=== PATIENT | female | born 1950 | race Caucasian/White ===

== ENCOUNTER 2018-12-03 07:55 | Inpatient (IN) ==
[2018-12-03] MEDS ORDERED: LR 1,000 ML ONE ×2 (08:28→09:02)
[2018-12-03] MEDS ORDERED: INVANZ 1 GM/NS 1 GM/50 ML IVPB ONE (08:28)
[2018-12-03] MEDS ORDERED: DIPRIVAN 1% ONE (08:57)
[2018-12-03] MEDS ORDERED: XYLOCAINE-MPF 2% ONE (08:58)
[2018-12-03] MEDS ORDERED: ZEMURON ONE ×2 (08:58→10:22)
[2018-12-03] MEDS ORDERED: SENSORCAINE 0.5%-EPI 1:200,000 ONE (09:02)
[2018-12-03] MEDS ORDERED: PEPCID ONE (09:10)
[2018-12-03] MEDS ORDERED: REGLAN ONE (09:11)
[2018-12-03] MEDS ORDERED: DUONEB (A & A) ONE (09:18)
[2018-12-03] MEDS ORDERED: SODIUM CHLORIDE 0.9% 10 ML ONE (09:24)
[2018-12-03] MEDS ORDERED: MARCAINE 0.25% ONE (09:24)
[2018-12-03] MEDS ORDERED: EXPAREL 1.3% ONE (09:24)
[2018-12-03] MEDS ORDERED: OFIRMEV 1000 MG/ISOTONIC SOLN 1,000 MG/100 ML BOTTLE ONE (10:13)
[2018-12-03] MEDS ORDERED: AMIDATE ONE (10:13)
[2018-12-03] MEDS ORDERED: ZOFRAN ONE (10:13)
[2018-12-03] MEDS ORDERED: DECADRON ONE (10:13)
[2018-12-03 11:18] LABS: URINE SOURCE CATH
[2018-12-03 11:24] LABS: BILIRUBIN URINE NEGATIVE (NEGATIVE); BLOOD URINE NEGATIVE (NEGATIVE); COLOR YELLOW; GLUCOSE URINE NEGATIVE (NEGATIVE); KETONE URINE NEGATIVE (NEGATIVE); LEUKOCYTES URINE NEGATIVE (NEGATIVE); NITRITE URINE NEGATIVE (NEGATIVE); PH URINE 8.5; PROTEIN URINE TRACE mg/dL (NEGATIVE); SP GRAVITY URINE 1.017; TURBIDITY URINE CLEAR (CLEAR); UROBILINOGEN URINE NORMAL (NORMAL)
[2018-12-03 11:28] LABS: UR EPITHELIAL CELLS <10 /HPF (<10); URINE BACTERIA NEGATIVE /HPF; URINE RBC <10 /HPF (<10); URINE WBC <10 /HPF (<10)
[2018-12-03] MEDS ORDERED: DILAUDID ONE (14:38)
[2018-12-03] MEDS ORDERED: NEOSTIGMINE ONE (14:45)
[2018-12-03] MEDS ORDERED: ROBINUL ONE ×2 (14:45→15:12)
[2018-12-03] MEDS ORDERED: VENTOLIN HFA ONE (14:54)
[2018-12-03] MEDS ORDERED: NEO-SYNEPHRINE ONE (15:46)
[2018-12-03] MEDS ORDERED: ALBUMIN 25% ONE (15:50)
[2018-12-03] MEDS ORDERED: NS 1,000 ML ONE (16:02)
--- NOTE | 2018-12-03 16:15 | Diag Imaging Result Doc PS360 ---
EXAM: CHEST-1 VIEW INDICATION: sob,hypoxemia TECHNIQUE: One view COMPARISON: 05/19/2018 FINDINGS: There is a small calcified granuloma in the right upper lobe. There is prominent central vasculature suggesting pulmonary venous congestion and mild perihilar interstitial edema. There is no discrete pleural fluid collection or pneumothorax. Median sternotomy wires are stable. Cardiac silhouette is unremarkable. IMPRESSION: Suggestion of pulmonary venous congestion and mild interstitial edema. Electronically signed by Myles Bundy 12/03/2018 4:13 PM
[2018-12-03 16:42] LABS: HEMATOCRIT 37.9 % (37.0-47.0); HEMOGLOBIN 11.2 g/dL (12.0-16.0); MCH 29.8 PG (27-31); MCHC 29.6 g/dL (33-37); MCV 100.8 FL (81-99); MPV 11.7 FL (7.4-10.4); RBC 3.76 XMIL (4.2-5.4); RDW 13.8 % (11.5-14.5); WBC 18.52 X1000 (4.8-10.8)
[2018-12-03] MEDS ORDERED: VENTOLIN HFA INH PRN (16:42)
[2018-12-03] MEDS: NS 1,000 ML IV SCH (17:00)
[2018-12-03] MEDS: MORPHINE IV PRN ×2 (17:12→19:55)
[2018-12-03] MEDS: LIORESAL PO SCH (17:13)
[2018-12-03] MEDS: OFIRMEV 1000 MG/ISOTONIC SOLN 1,000 MG/100 ML BOTTLE IV SCH ×2 (17:13→22:33)
--- NOTE | 2018-12-03 20:09 | OPERATIVE NOTE ---
PROCEDURE DATE: 12/03/2018 PREOP DIAGNOSIS: Low rectal cancer. POSTOP: Low rectal cancer. PROCEDURE PERFORMED: Robot-assisted laparoscopic abdominoperineal resection. ROSS CARRIER DRIVER: Dr. Justice was present for the entirety of the case. He facilitated exposure, identification of anatomy made difficult by the patient's morbid obesity. ANESTHESIA: General with TAP. INDICATIONS: Female who had what was initially felt to be a 15 cm rectal polyp and invasive carcinoma at the base of the polyp was confirmed but no evidence of metastatic disease. OPERATIVE FINDINGS: The patient had a very large redundant sigmoid colon with large epiploic appendages and mesorectal fat. There was tattoo noted below the peritoneal reflection extending all the way down to within 2 cm of the anal verge. No evidence of metastatic disease liver. SPECIMENS: 1. Proximal rectum and sigmoid colon. 2. Distal rectum and anus. OPERATIVE NOTE: Risks, benefits and alternatives discussed with the patient and she consented to the procedure. Seen preoperatively. Surgical site was confirmed. She has taken operating room placed supine position, general anesthesia induced. TAP block was performed. Bustillos catheter was placed and she was then placed in lithotomy position. Her perineum and abdomen was prepped with chlorhexidine, Betadine on the perineum. After time-out we made a supraumbilical incision, placed robotic camera trocar and insufflated the abdomen. There was no evidence of metastatic disease. There was some adhesions to the lower midline felt to be related to previous tubal ligation. Then placed a 12 mm robotic trocar between the ASIS and the umbilicus. Two additional robotic trocars left lateral and assistant property manager port in the right upper quadrant. After docking the robot the patient was in steep Trendelenburg position. Exposure was difficult given the large amount of perivisceral fat and we had a hard time getting the small bowel out of the pelvis but we were able to do this with a mini laparotomy pad and the assistant property manager trocar. We identified the pedicle, which again was very bulky and fatty. We incised this after incising the mesorectal plane. We divided the pedicle highly as we felt safe and continued our dissection distally. We were well away from the ureters bilaterally and we could visualize them. We continued our dissection distally. Mobilizing the redundant sigmoid and rectum out of the pelvis was difficult as it was quite heavy and the robot had a hard time retracting this but we were able to do this what we felt safely although difficultly. Getting this down incised the peritoneal reflection. We identified some tattoo ink here. Anteriorly seemed to be very scarred to the vagina but we were able to continue our posterior dissection down the level that we felt was far enough but our lateral and anterior dissection was difficult. Dr. Justice attempted to pass a rectal dilator to help guide this. Also placed a vaginal dilator as well but this did not help delineate the planes adequately. As such, we aborted the robotic portion, made a lower midline incision made Korey wound protector. We continued our dissection again even in an open fashion. This was very difficult. The plane seemed to be obliterated. There was a lot of anterior tattoo that further obliterated this plane and we even divided the colon proximally to help clear the pelvis of extra viscera and this did help. At this point we felt we were probably far enough based off of our sigmoid then we used a TA 45 mm stapler to remove the sigmoid and rectum so visualization and exposure would be better. I opened the specimen on the back table and it became clear that what appeared to be a biopsy site was at our distal margin and we needed more margin, but again this polyp was felt to be completely removed and we were confident that this was in fact a biopsy site. As such, we continued our dissection distally. Continued to identify tattoo down to the level that we felt was too low to allow confident distal margin and too low to given the size and redundancy of her perirectal pelvic tissue created in the anastomosis. As such with the goal to not sacrifice oncologic outcomes we elected to pursue an abdominoperineal resection. The quality of the rectal wall is very poor at this location. We at this point placed her in high lithotomy position and created an incision around the anus starting posteriorly and laterally. We carried this up to completing the dissection with the intraabdominal portion and we completed our dissection anteriorly. The vagina again this plane is very obliterated but were able do this safely without creating a vaginal defect. There was tattoo noted along the posterior vaginal wall. We passed the specimen off orienting it. There was a very poor prep and a lot of formed stool within the sigmoid rectum. There was some spillage into the pelvis during the distal transections but we were able to evacuate this completely. At this point, I closed the peritoneal defect after confirming hemostasis combination 0 Vicryl and 3-0 Vicryl at the skin in interrupted fashion. There was good tension-free closure here. At this point we changed our gloves, went back above, copiously irrigated the pelvis, closed the peritoneum over the pelvis, placed a Slick drain in this location and then further mobilized the descending colon to provide adequate reach for the colostomy. Left lower quadrant colostomy incision was made 2 fingerbreadths lateral and inferior to the umbilicus but further enough away from our incision through the rectus. We carried this down to rectus splitting fascia with the ostomy site that would allow 3 fingerbreadths given large size of her colon. We did have to resect a large redundant epiploic appendages to allow admittance but we were able to do this and it came out nicely without tension. We then again irrigated the abdomen. All our lap counts were okay. I closed the robotic trocars with 0 Vicryl and the fascia was then closed incorporating the peritoneum with a running #1 looped PDS suture. Irrigated the superficial wound, closed all incisions with constance and then matured the colostomy with interrupted 0 Vicryl sutures in [place] fashion. Ostomy appliance as well as dressing was applied. She tolerated it well. She was transferred to recovery. I spoke with the family and will watch in the step-down unit. ESTIMATED BLOOD LOSS: 400 mL. cc: Aramis Serrano MD [facility]
[2018-12-03] MEDS: PERIDEX MT SCH ×2 (21:09→21:13)
[2018-12-03] MEDS: ZOFRAN IV PRN (22:33)
[2018-12-04] MEDS: MORPHINE IV PRN ×6 (00:19→21:21)
[2018-12-04] MEDS: ULTRAM PO PRN (01:54)
[2018-12-04] MEDS: ZOFRAN IV PRN ×4 (04:26→23:05)
[2018-12-04] MEDS: OFIRMEV 1000 MG/ISOTONIC SOLN 1,000 MG/100 ML BOTTLE IV SCH ×2 (04:27→10:22)
[2018-12-04 06:28] LABS: BASO# 0.01 X1000 (0.0-0.2); BASO% 0.1 % (0.0-0.8); HEMOGLOBIN 10.7 g/dL (12.0-16.0); IMM GRAN# 0.04 X1000 (0.0-0.04); IMM GRAN% 0.3 % (0.0-0.5); LYMPH# 1.65 X1000 (1.2-3.4); LYMPH% 10.5 % (20.5-51.1); MCH 28.9 PG (27-31); MCHC 30.6 g/dL (33-37); MCV 94.6 FL (81-99); MONO# 1.09 X1000 (0.11-0.59); MONO% 6.9 % (1.7-9.3); MPV 11.9 FL (7.4-10.4); NEUT# 12.97 X1000 (1.4-6.5); NEUT% 82.2 % (42.2-75.2); PLT 300 X1000 (130-400); RDW 13.9 % (11.5-14.5); WBC 15.76 X1000 (4.8-10.8)
[2018-12-04 06:54] LABS: AGAP 13; BUN 11 mg/dL (8-22); CALCIUM 8.3 mg/dL (8.8-10.2); CHLORIDE 107 mmol/L (98-107); COSMO 291; CREATININE 0.9 mg/dL (0.5-0.9); ESTIMATED GFR > 60; GLUCOSE 177 mg/dL (70-104); POTASSIUM 4.9 mmol/L (3.5-5.1); SODIUM 144 mmol/L (136-145); TCO2 24 mmol/L (25-35)
[2018-12-04] MEDS: DUONEB (A & A) INH PRN ×3 (08:10→21:25)
[2018-12-04] MEDS: ASPIRIN EC PO SCH (08:41)
[2018-12-04] MEDS: SINGULAIR PO SCH (08:41)
[2018-12-04] MEDS: LIORESAL PO SCH ×3 (08:41→17:24)
[2018-12-04] MEDS: PRAVACHOL PO SCH (08:41)
[2018-12-04] MEDS: MAG-OX PO SCH (08:41)
[2018-12-04] MEDS: PERIDEX MT SCH ×2 (08:43→21:21)
[2018-12-04] MEDS: LOVENOX SUBQ SCH (08:43)
[2018-12-04] MEDS: NS 1,000 ML IV SCH (12:13)
--- NOTE | 2018-12-04 15:16 | GENERAL SURGERY PROGRESS NOTE ---
DATE: 12/04/2018 SUBJECTIVE: She is postoperative day one after abdominal perineal resection. This was for cancer. Her primary complaint today is pain. She denies vomiting or nausea. OBJECTIVE: She is afebrile. Heart rate 115, blood pressure 120/69. Her drain has put out very little and it appears to be serosanguineous. Her stoma is swollen and somewhat darkish in appearance. LABORATORY DATA: White count is 15,000, hemoglobin 10.7. ASSESSMENT AND PLAN: She apparently takes [place] regularly and is asking for [place], in addition to her morphine. I will put her back on [place] 3 times a day as needed. Will recheck her labs tomorrow. cc: MD Aramis Kelsey MD
[2018-12-04] MEDS: NORCO-10 PO PRN (19:07)
[2018-12-05] MEDS: MORPHINE IV PRN ×5 (01:21→18:19)
[2018-12-05] MEDS: NORCO-10 PO PRN ×3 (03:13→20:28)
[2018-12-05] MEDS: DUONEB (A & A) INH PRN ×4 (03:22→21:10)
[2018-12-05 06:51] LABS: BASO# 0.01 X1000 (0.0-0.2); BASO% 0.1 % (0.0-0.8); HEMATOCRIT 28.7 % (37.0-47.0); HEMOGLOBIN 8.7 g/dL (12.0-16.0); IMM GRAN# 0.06 X1000 (0.0-0.04); IMM GRAN% 0.3 % (0.0-0.5); LYMPH# 1.66 X1000 (1.2-3.4); LYMPH% 9.5 % (20.5-51.1); MCH 28.8 PG (27-31); MCHC 30.3 g/dL (33-37); MONO# 1.53 X1000 (0.11-0.59); MONO% 8.8 % (1.7-9.3); MPV 12.2 FL (7.4-10.4); NEUT# 14.14 X1000 (1.4-6.5); NEUT% 81.3 % (42.2-75.2); PLT 249 X1000 (130-400); RBC 3.02 XMIL (4.2-5.4); RDW 14.4 % (11.5-14.5)
[2018-12-05 07:07] LABS: AGAP 12; BUN 12 mg/dL (8-22); CALCIUM 8.8 mg/dL (8.8-10.2); CHLORIDE 107 mmol/L (98-107); COSMO 286; CREATININE 0.7 mg/dL (0.5-0.9); ESTIMATED GFR > 60; GLUCOSE 159 mg/dL (70-104); POTASSIUM 4.3 mmol/L (3.5-5.1); SODIUM 142 mmol/L (136-145); TCO2 23 mmol/L (25-35)
[2018-12-05] MEDS: PERIDEX MT SCH ×2 (08:01→20:29)
[2018-12-05] MEDS: SINGULAIR PO SCH (08:02)
[2018-12-05] MEDS: PRAVACHOL PO SCH (08:02)
[2018-12-05] MEDS: MAG-OX PO SCH (08:02)
[2018-12-05] MEDS: ASPIRIN EC PO SCH (08:02)
[2018-12-05] MEDS: LIORESAL PO SCH ×3 (08:02→17:37)
[2018-12-05] MEDS: NS 1,000 ML IV SCH (08:20)
[2018-12-05] MEDS: ZOFRAN IV PRN ×2 (09:58→18:19)
[2018-12-05] MEDS: LOVENOX SUBQ SCH (10:24)
--- NOTE | 2018-12-05 10:47 | GENERAL SURGERY PROGRESS NOTE ---
DATE: 12/05/2018 SUBJECTIVE: She is postop day 2 after abdominal peroneal resection. OBJECTIVE: Temperature is 99.1 degrees, heart rate is 130, blood pressure 126/53. She has bilateral breath sounds and does not appear to be tachypneic. She says she has coughed up some phlegm today. Intake recorded as 700 in and 1080 out. Her drain appears to be draining serous fluid mostly. Her stoma was dark on the surface but probably this may simply be superficial ischemia. [place]: [place] [address] hemoglobin 8.7, hematocrit 28.7. Her chemistry is okay. ASSESSMENT: She appears to be stable postop. She has taken some liquid without nausea and there has been no output in her stoma yet. We did put her on [place] because she takes it regularly at home. We will watch her I's and I's today and see if she needs an increased IV rate. Recheck her labs tomorrow. I will get a chest x-ray in the morning as well. cc: MD Aramis Kelsey MD
[2018-12-05 17:12] LABS: HEMATOCRIT 28.2 % (37.0-47.0); HEMOGLOBIN 8.5 g/dL (12.0-16.0)
[2018-12-05] MEDS ORDERED: LASIX IV ONE (17:58)
[2018-12-05] MEDS ORDERED: TAPAZOLE PO ONE (18:08)
[2018-12-05] MEDS: TAPAZOLE PO SCH (18:28)
--- NOTE | 2018-12-05 19:02 | CONSULTATION ---
DATE OF CONSULTATION: 12/05/2018 REASON FOR CONSULTATION: Medical management, tachycardia, abdominal pain. HISTORY OF PRESENT ILLNESS: This is a 68-year-old female with a past medical history of peripheral vascular disease, hypertension, hyperlipidemia, and COPD. She has also been taking medication for hyperthyroidism, history of CABG due to coronary artery disease in December 2015 with 4-vessel bypass, dyslipidemia, CHF, GERD and apparently now low rectal cancer. As per the patient, she has been followed by Dr. Serrano, Dr. Rice from Gastroenterology Department, and Dr. Leigh Young from Oncology Department. She had a robot-assisted laparoscopic abdominoperitoneal resection by Dr. Ori Serrano. As per the surgeon, she has a rectal polyp and invasive carcinoma at the base of the polyp, but no evidence of metastatic disease. It looks like she tolerated well the procedure, and she was hospitalized in the PVC unit. She has been complaining of abdominal pain even though she has been taking her [place] which she has been on at home as well and morphine. She has been placed on a little bit of IV fluids and some of her home medications. This patient has been taking also methimazole, and she takes 10 mg Thursday, Thursday, and Thursday. The rest of the days she takes only 5 mg. Also, she is on torsemide due to her CHF. On my physical exam, she seems to have some rales and crackles. Her cough is really weak because of her abdominal pain. She also has some abdominal distention, a drain, and an ostomy that is with a bag. Extremities with no edema and she is completely alert and oriented x3, but she does have generalized weakness. For now, I will add the methimazole, and I will give her a dose of Lasix. We will check the TSH level in the morning, electrolytes, and also a chest x-ray, which has been already ordered by Surgery Department. I agree with the rest of treatment. She denies nausea, vomiting, diarrhea, chest pain, but she is a little bit short of breath. She is tachycardic also. Tachycardia could be multifactorial due to pain and missing the methimazole treatment. We will monitor that. REVIEW OF SYSTEMS: All the 14-points of review of systems were reviewed. All of them negative except as per HPI. PAST MEDICAL HISTORY: As per HPI. History of coronary artery disease status post CABG in December 2015 with 4-vessel bypass, COPD, dyslipidemia, CHF. She has been treated for hyperthyroidism, obesity, and rectal cancer. PAST SURGICAL HISTORY: She had a bypass surgery done. 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 SOCIAL HISTORY: She used to be a smoker. No alcohol. No drugs. ALLERGIES: No known allergies. PHYSICAL EXAMINATION: Vital Signs: Temperature 98.7 degrees, pulse 135, respiratory rate 20, blood pressure 133/53, oxygen saturation 96 on 3L nasal cannula. HEENT: Head normocephalic. No trauma. PERRLA. Neck: Supple. No JVD. No masses. Central trachea. Chest: Decreased breath sounds at the bases with bilateral crackles and some rales. Prolonged expiratory phase. Abdomen: Soft. Generalized tenderness to palpation mostly around the operative area. She has a colostomy and a drain with some serosanguineous discharge. Extremities: No edema, no clubbing, no cyanosis. Neurological: The patient is alert. She is oriented x3. No focal deficits. LABORATORY: WBC 17.4, hemoglobin 8.5, hematocrit 28.2, and platelets 249,000. Sodium 142, potassium 4.3, chloride 107, bicarbonate 23, BUN 12, creatinine 0.7, glucose 159, calcium 8.8. ASSESSMENT AND PLAN: 1. Low rectal cancer, status post robot-assisted laparoscopic abdominal peritoneal resection due to a rectal polyp and invasive carcinoma at the base of the polyp that was confirmed but no evidence of metastatic disease. Surgery department following this patient closely. We will monitor. 2. History of coronary artery disease and congestive heart failure. I will put this patient on Lasix. I will check again her lungs in the morning. She takes torsemide at home twice a day. We will put this patient back on her medications in the near future. 3. Hypertension. At this moment, her blood pressure has been borderline low. We will monitor this patient closely. She is on IV fluids. 4. Type 2 diabetes. Continue with the same management. Her blood sugar seems to be controlled. I will put her on a sliding scale insulin. 5. Gastroesophageal reflux disease. I will add PPI to her medications. 6. The patient has been treated for hyperthyroidism with methimazole, which I will continue. She takes 5 mg Neli, , Thursday and Thursday and 10 mg Thursday, Thursday, and Thursday. 7. Peripheral neuropathy, aware. 8. Dyslipidemia. Continue with pravastatin. 9. Further recommendations pending hospital course. cc: MD Aramis Guaman MD MTDD
[2018-12-05] MEDS: HUMULIN R SUBQ SCH (23:00)
[2018-12-06] MEDS: MORPHINE IV PRN ×4 (01:51→19:21)
[2018-12-06] MEDS: DUONEB (A & A) INH PRN ×6 (03:33→23:25)
[2018-12-06] MEDS: NS 1,000 ML IV SCH ×2 (03:37→03:48)
[2018-12-06] MEDS: PROTONIX PO SCH ×2 (05:53→06:14)
--- NOTE | 2018-12-06 06:09 | Diag Imaging Result Doc PS360 ---
EXAM: CHEST-PORTABLE HISTORY: post op TECHNIQUE: Single view COMPARISON: 12/03/2018 FINDINGS: The lungs are well expanded. The heart is not enlarged. There are sternal wires. The vessels are mildly distended. There are no infiltrates. No effusion identified. IMPRESSION: Mild pulmonary edema Electronically signed by Wilberto Richardson 12/06/2018 6:06 AM
[2018-12-06] MEDS: HUMULIN R SUBQ SCH ×4 (06:13→20:08)
[2018-12-06 06:24] LABS: BASO# 0.01 X1000 (0.0-0.2); BASO% 0.1 % (0.0-0.8); HEMATOCRIT 27.6 % (37.0-47.0); HEMOGLOBIN 8.4 g/dL (12.0-16.0); IMM GRAN# 0.06 X1000 (0.0-0.04); IMM GRAN% 0.4 % (0.0-0.5); LYMPH# 1.72 X1000 (1.2-3.4); LYMPH% 10.6 % (20.5-51.1); MCH 28.9 PG (27-31); MCHC 30.4 g/dL (33-37); MCV 94.8 FL (81-99); MONO# 1.24 X1000 (0.11-0.59); MONO% 7.7 % (1.7-9.3); MPV 12.3 FL (7.4-10.4); NEUT# 13.17 X1000 (1.4-6.5); NEUT% 81.2 % (42.2-75.2); PLT 262 X1000 (130-400); RBC 2.91 XMIL (4.2-5.4); RDW 14.4 % (11.5-14.5)
[2018-12-06 06:42] LABS: AGAP 10; BUN 9 mg/dL (8-22); CHLORIDE 105 mmol/L (98-107); COSMO 281; CREATININE 0.7 mg/dL (0.5-0.9); ESTIMATED GFR > 60; GLUCOSE 124 mg/dL (70-104); POTASSIUM 3.2 mmol/L (3.5-5.1); SODIUM 141 mmol/L (136-145); TCO2 26 mmol/L (25-35)
[2018-12-06 07:32] LABS: MAGNESIUM 2.5 mg/dL (1.5-2.7); PHOSPHORUS 1.9 mg/dL (2.7-4.5)
[2018-12-06] MEDS: TAPAZOLE PO SCH (08:55)
[2018-12-06] MEDS: NORCO-10 PO PRN ×3 (08:55→21:09)
[2018-12-06] MEDS: LOVENOX SUBQ SCH (08:56)
[2018-12-06] MEDS: PERIDEX MT SCH ×2 (08:56→20:28)
[2018-12-06] MEDS: PRAVACHOL PO SCH (08:56)
[2018-12-06] MEDS: ASPIRIN EC PO SCH (08:56)
[2018-12-06] MEDS: LASIX IV SCH (08:56)
[2018-12-06] MEDS: LIORESAL PO SCH ×3 (08:56→20:28)
[2018-12-06] MEDS: SINGULAIR PO SCH (08:56)
[2018-12-06] MEDS: MAG-OX PO SCH (08:56)
[2018-12-06] MEDS: ZOFRAN IV PRN ×2 (09:07→21:58)
[2018-12-06] MEDS ORDERED: POTASSIUM PHOSPHATE 21 MMOL in NS 250 ML IV ONE (09:30)
--- NOTE | 2018-12-06 10:18 | PROGRESS NOTE ---
DATE: 12/06/2018 SUBJECTIVE: This patient is still complaining of abdominal pain. She recently had a surgery done. I wanted this patient to be on incentive spirometer to avoid pneumonia. Physical Therapy already has been consulted. We will need to continue breathing treatment. I have restarted some of her medications before, especially methimazole. Also, I have placed this patient on Lasix once a day. She takes torsemide twice a day at home. It looks like she has a history of congestive heart failure, but her last echocardiogram was done in 2017 so I will repeat it. She has some electrolyte abnormality especially low potassium and phosphorus, which I will replace. Her leukocyte count is still elevated. This is probably reactive, and she is not having a fever. The highest temperature is been documented 99.4. I will keep an eye on this for now. OBJECTIVE: Vital Signs: Temperature 99.4 degrees, pulse 117, respiratory rate 22, blood pressure 135/61, oxygen saturation 96 on 3 L of nasal cannula. HEENT: Head normocephalic. No trauma. PERRLA. Neck: Supple. No JVD. No masses. Central trachea. Chest: Decreased breath sounds mostly at the bases with some crackles bilaterally, prolonged expiratory phase. Abdomen: Soft. Generalized tenderness to palpation mostly around the perioperative area. Decreased bowel sounds but present. She has a colostomy and also a drain with some serosanguineous discharge. Extremities: No edema. No clubbing. No cyanosis. Neurological: The patient is alert. She is oriented x3. No focal deficits but generalized weakness. LABORATORY: WBC 16.2, hemoglobin 8.4, hematocrit 27.6, and platelets 262,000. Sodium 141, potassium 3.2, chloride 105, bicarbonate 26, BUN 9, creatinine 0.7. Glucose 124, calcium 8, phosphorus 1.9, magnesium 2.5, and TSH 0.4. ASSESSMENT AND PLAN: 1. Low rectal cancer, status post robot assisted laparoscopic abdominal peritoneal resection due to a rectal polyp and invasive carcinoma at the base of the polyp that was confirmed, but no evidence of metastatic disease. Surgery Department following this patient closely. We will continue to monitor. 2. History of coronary artery disease and CHF. I will continue with Lasix just once a day. She takes torsemide twice a day at home. Probably, we will need to put this patient back on her home medications in the future. Kidney function looks okay. I will continue with same management. She is also getting some fluids since she is not eating too much. 3. Hypertension. Stable. Continue with same management for now. 4. Type 2 diabetes. Continue pattern of blood sugar and sliding scale insulin. 5. Gastroesophageal reflux disease. Continue with proton pump inhibitors. 6. This patient has been treated for hyperthyroidism with methimazole, which I will continue. She takes 5 mg Thursday, and Thursday and Thursday, and 10 mg Thursday, Thursday, and Thursday. I will continue with that. 7. Peripheral neuropathy aware. 8. Dyslipidemia. Continue with pravastatin. 9. This patient is tachycardic probably/likely is related to her pain, but also I have restarted her thyroid medication. Let us see how she does. 10. X-ray today showed mild pulmonary edema but no infiltrates. cc: MD Aramis Guaman MD
--- NOTE | 2018-12-06 13:04 | EKG Report ---
Test Performed on : 12/06/2018 12:13:53 PM Test Reason : tachycardia Blood Pressure : / mmHG Vent. Rate : 119 BPM Atrial Rate : 119 BPM P-R Int : 000 ms QRS Dur : 082 ms QT Int : 426 ms P-R-T Axes : 000 030 105 degrees QTc Int : 599 ms Critical Test Result: Long QTc Normal sinus rhythm. ST & T wave abnormality, consider anterolateral ischemia Abnormal ECG When compared with ECG of 19-MAY-2018 17:45, T wave inversion no longer evident in Inferior leads Confirmed by Mitchell Almanzar MD ([id number]) on 12/07/2018 7:18:09 AM
--- NOTE | 2018-12-06 13:43 | ECHO REPORT ---
ORDER DATE: 12/05/2018 INDICATION: CHF. FINDINGS: This is an extremely difficult and poor quality study. Endocardial border resolution is extremely poor. 1. There is likely normal LV systolic function with an estimated EF greater than 55%. Segmental wall motion analysis cannot be performed in this patient. Could consider Optison contrast injection. 2. Normal RV systolic function. 3. Poor views of the mitral valve but no evidence of mitral valve prolapse. 4. Poor views of the aortic valve but no clear evidence of significant stenosis or insufficiency. 5. The right heart overall was poorly visualized but there do not appear to be any significant abnormalities. 6. No pericardial effusion identified. cc: MD Mukesh Ramirez MD R. Tyler Harney, MD
--- NOTE | 2018-12-06 20:03 | GENERAL SURGERY PROGRESS NOTE ---
DATE: 12/06/2018 SUBJECTIVE: Overall hemodynamically stable. She has become a little tachycardic overnight, but no fevers. Blood pressure has been normal. Urine output has been good. She is having some incisional discomfort, but her abdomen is soft. Her ostomy has some duskiness on the most exterior portion. There is no stool or air in the bag. Trace lower extremity edema. She is on 3 to 4 L nasal cannula. She has coarse rhonchi noted, a very weak cough. She is not moving out of bed very much. ASSESSMENT AND PLAN: The hospitalist has seen the patient and resumed her methimazole, which I agree with. They have started gentle diuresis with half of her home dose. I agree with this, also. Her ejection fraction was maintained on her echocardiogram. Her chest x-ray shows possible mild pulmonary edema. We will work on her pain control. I have encouraged her to be out of bed and stressed the importance of pulmonary toileting which, unfortunately, she is not participating well with at this juncture. We will work on her electrolytes as well. Keep her on clear liquids until she is tolerating more of a diet. I have ordered her nebulizer treatments as scheduled, and reviewed the remainder of her medications. Dr. Abreu has given her some potassium phosphate. We will monitor this, especially with her diuresis going forward. cc: Aramis Serrano MD
[2018-12-07] MEDS: NS 1,000 ML IV SCH ×2 (01:07→20:43)
[2018-12-07] MEDS: MORPHINE IV PRN ×4 (01:15→19:25)
[2018-12-07] MEDS: ZOFRAN IV PRN ×3 (03:36→15:08)
[2018-12-07] MEDS: NORCO-10 PO PRN ×3 (05:38→22:07)
[2018-12-07 05:47] LABS: BASO# 0.01 X1000 (0.0-0.2); BASO% 0.1 % (0.0-0.8); EOS# 0.02 X1000 (0.0-0.7); EOS% 0.2 % (0.0-10.0); HEMATOCRIT 26.2 % (37.0-47.0); IMM GRAN# 0.05 X1000 (0.0-0.04); IMM GRAN% 0.4 % (0.0-0.5); LYMPH# 1.58 X1000 (1.2-3.4); MCH 29.1 PG (27-31); MCHC 30.5 g/dL (33-37); MCV 95.3 FL (81-99); MONO# 1.23 X1000 (0.11-0.59); MONO% 9.3 % (1.7-9.3); MPV 11.7 FL (7.4-10.4); NEUT# 10.27 X1000 (1.4-6.5); PLT 280 X1000 (130-400); RBC 2.75 XMIL (4.2-5.4); RDW 14.3 % (11.5-14.5); WBC 13.16 X1000 (4.8-10.8)
[2018-12-07 05:59] LABS: AGAP 13; ALBUMIN 2.8 g/dL (3.5-5.0); ALKALINE PHOSPHATASE 102 U/L (32-104); BUN 7 mg/dL (8-22); CALCIUM 8.2 mg/dL (8.8-10.2); CHLORIDE 104 mmol/L (98-107); COSMO 284; CREATININE 0.7 mg/dL (0.5-0.9); ESTIMATED GFR > 60; GLUCOSE 154 mg/dL (70-104); GOT 17 U/L (10-30); GPT 13 U/L (10-36); MAGNESIUM 2.6 mg/dL (1.5-2.7); PHOSPHORUS 2.5 mg/dL (2.7-4.5); POTASSIUM 3.4 mmol/L (3.5-5.1); SODIUM 142 mmol/L (136-145); TCO2 25 mmol/L (25-35); TOTAL BILIRUBIN 0.56 mg/dL (0.20-1.00); TOTAL PROTEIN 5.5 g/dL (6.3-8.3)
[2018-12-07] MEDS: HUMULIN R SUBQ SCH ×4 (06:18→20:44)
[2018-12-07] MEDS: PROTONIX PO SCH (06:29)
--- NOTE | 2018-12-07 07:33 | Diag Imaging Result Doc PS360 ---
EXAM: CHEST-PORTABLE INDICATION: dyspnea TECHNIQUE: One view COMPARISON: 12/06/2018 FINDINGS: There are linear densities at the right lower lung zone most compatible with subsegmental atelectasis. It is approximately stable. Mild pulmonary venous congestion is stable. No new consolidation is identified. Cardiac silhouette is stable. IMPRESSION: Stable chest. Electronically signed by Myles Bundy 12/07/2018 7:31 AM
[2018-12-07] MEDS: SINGULAIR PO SCH (08:58)
[2018-12-07] MEDS: MAG-OX PO SCH (08:58)
[2018-12-07] MEDS: PRAVACHOL PO SCH (08:58)
[2018-12-07] MEDS: LOVENOX SUBQ SCH (08:58)
[2018-12-07] MEDS: ASPIRIN EC PO SCH (08:58)
[2018-12-07] MEDS: LIORESAL PO SCH ×3 (08:58→16:55)
[2018-12-07] MEDS: LASIX IV SCH (08:58)
[2018-12-07] MEDS: PERIDEX MT SCH ×2 (08:58→20:44)
[2018-12-07] MEDS: DUONEB (A & A) INH PRN ×3 (11:23→19:35)
[2018-12-07] MEDS: TAPAZOLE PO SCH (17:34)
[2018-12-08] MEDS: ZOFRAN IV PRN ×2 (02:16→14:20)
[2018-12-08] MEDS: MORPHINE IV PRN ×5 (02:16→20:54)
[2018-12-08] MEDS: PROTONIX PO SCH (06:36)
[2018-12-08] MEDS: HUMULIN R SUBQ SCH ×4 (06:37→21:00)
[2018-12-08] MEDS: DUONEB (A & A) INH PRN ×3 (07:41→15:53)
[2018-12-08] MEDS: MAG-OX PO SCH (09:05)
[2018-12-08] MEDS: PRAVACHOL PO SCH (09:05)
[2018-12-08] MEDS: ASPIRIN EC PO SCH (09:05)
[2018-12-08] MEDS: SINGULAIR PO SCH (09:05)
[2018-12-08] MEDS: LIORESAL PO SCH ×3 (09:05→16:18)
[2018-12-08] MEDS: LOVENOX SUBQ SCH (09:05)
[2018-12-08] MEDS: LASIX IV SCH (09:06)
[2018-12-08] MEDS: TAPAZOLE PO SCH (09:25)
[2018-12-08] MEDS: NORCO-10 PO PRN (09:25)
[2018-12-08] MEDS: PERIDEX MT SCH ×2 (09:25→20:54)
--- NOTE | 2018-12-08 09:26 | GENERAL SURGERY PROGRESS NOTE ---
DATE: 12/07/2018 SUBJECTIVE: The patient is overall doing okay. She is denying having any vomiting. Tachycardia is persistent, but improving. She is in the chair, remains on nasal cannula 3 L, but is participating more vigorously with pulmonary toileting. Her abdomen is soft. Her ostomy is dusky distally, but there does appear to be pink mucosa more proximally. On the , her white count was down to 13, hematocrit is 26, creatinine 0.7. Glucose has been okay. ASSESSMENT AND PLAN: This is a 68-year-old female status post abdominoperineal resection. She has chronic lung disease, chronic heart disease. She is being gently diuresed. She has a Bustillos catheter in place for this. She is tolerating some clear liquids. No significant ostomy output yet. She is on prophylactic Lasix, her daily aspirin as well as her pulmonary regimen and PPI as well. We will continue to monitor closely. Encourage out of bed and ambulation. cc: MD Flex Sorensen MD
--- NOTE | 2018-12-08 09:41 | GENERAL SURGERY PROGRESS NOTE ---
DATE: 12/08/2018 SUBJECTIVE: She is much more alert, breathing more comfortably this morning. She is lying in bed. She is tolerating some clear liquids. OBJECTIVE: Her abdomen is soft, mildly distended, but her ostomy does show some pink mucosa proximally after the distal-most aspect is sloughing. LABORATORY DATA: Glucose 127, otherwise no new labs. I reviewed her ins and outs as they continue gently diurese her. ASSESSMENT AND PLAN: A 68-year-old female status post abdominoperineal resection. We will continue physical therapy, aggressive pulmonary toileting and management of her chronic pulmonary and heart disease. Otherwise, she is progressing appropriately postoperatively. cc: MD Flex Sorensen MD
[2018-12-08] MEDS: NS 1,000 ML IV SCH (16:18)
[2018-12-08] MEDS ORDERED: ROCEPHIN 1 GM in NS 50 ML IV ONE (16:56)
--- NOTE | 2018-12-08 17:24 | Diag Imaging Result Doc PS360 ---
CHEST-PORTABLE - 12/08/2018 INDICATION: fever COMPARISON: 12/07/2018 FINDINGS: Stable sternotomy changes. Stable cardiomegaly and pulmonary vascular congestion. Lung volumes are lower. There is increasing infiltrate or atelectasis in the right lower lobe. IMPRESSION: Lower lung volumes with increasing infiltrate or atelectasis in the right lower lobe. Electronically signed by Alfredo Elizalde 12/08/2018 5:21 PM
--- NOTE | 2018-12-08 17:28 | PROGRESS NOTE ---
DATE: 12/08/2018 SUBJECTIVE: This is a 68-year-old female who was admitted with abdominal pain. Recently had surgery done. The patient was admitted to the hospital. He is a patient of Dr. Irma Smith. She had a robot-assisted laparoscopic abdominal peritoneal resection. She has done well postop. She has a colostomy. She had a consultation with the hospitalist on 12/05. Past medical history includes peripheral vascular disease, hypertension, hyperlipidemia, COPD. She has been taking medications for hyperthyroidism . History of CABG, bypass due to coronary artery disease in December 2015, 4 vessel bypass, dyslipidemia, congestive heart failure, gastroesophageal reflux disease, and apparently low rectal cancer. Has been followed by Dr. Serrano and Dr. Rice and Dr. Leigh Young. She had robotic-assisted laparoscopic abdominal peritoneal resection per Dr. Ori Serrano. 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 She tolerated the procedure well. She is in the PVC unit. OBJECTIVE: Vital signs: She actually had some fever today, 101. Pulse is 115, respirations 20, blood pressure 124/66. General: She has not felt bad. She has had a little bit of a dry cough, but otherwise unremarkable. HEENT: Pupils are equal and round. Lungs: Clear in all lung ordonez. Cardiovascular: Regular rhythm and rate without murmur or S3. Abdomen: Soft. The ostomy looks good. Abdominal incisions look good. Still has the Zack-Welch drain in. Skin: Warm and dry. Urine output was 2400 mL. LABORATORY: Blood sugar 90, 127, and 89. ASSESSMENT AND PLAN: 1. Low rectal cancer, status post robotic-assisted laparoscopic abdominal peritoneal resection due to rectal polyp and invasive carcinoma at the base of the polyp was confirmed. No evidence of metastatic disease. 2. History of coronary artery disease and history of congestive heart failure. Appears to be well compensated. Volume status looks good. She takes torsemide twice a day, so we probably need to get her back on that in the near future. 3. Hypertension. Blood pressure is well controlled. 4. Diabetes mellitus type 2. 5. Gastroesophageal reflux disease. On proton pump inhibitors. 6. Had been treated for hyperthyroidism with methimazole and we will continue that. She takes 5 mg Tuesdays, , Saturdays, and Sundays, and 10 mg on Mondays, Wednesdays, and Fridays. 7. Peripheral neuropathy. 8. Dyslipidemia. She is on pravastatin. 9. They have been following her tachycardia. [place] it was probably due to her pain. Appears to be in sinus rhythm. REVIEW OF ORDERS: She gets Tylenol 650 mg p.o. q.4 hours, I just ordered that p.r.n. fever or pain, aspirin 81 mg a day, Lioresal which is baclofen 10 mg p.o. t.i.d., Lasix 40 mg IV daily, hydrocodone 10 mg t.i.d. p.r.n., milk of magnesia 400 mg a day, Tapazole which is methimazole 5 mg p.o. Thursday, Thursday, , and Thursday, and 10 mg on the other days. Gets morphine for pain, Protonix 40 mg p.o. daily, ceftriaxone 1 g, I am going to give her now, and vancomycin. We will check urine culture and chest x-ray and send off her blood cultures for fever. I do not see any definite sign of infection. cc: Flex Littlejohn MD
[2018-12-08] MEDS: TYLENOL PO PRN (17:31)
[2018-12-08] MEDS ORDERED: VANCOMYCIN 1 GM/NS 1 GM/250 ML IVPB IV ONE (18:00)
[2018-12-09] MEDS: NORCO-10 PO PRN ×3 (00:12→16:37)
[2018-12-09] MEDS: DUONEB (A & A) INH PRN ×2 (03:38→22:53)
[2018-12-09] MEDS: MORPHINE IV PRN ×5 (05:12→22:05)
[2018-12-09] MEDS: PROTONIX PO SCH (06:19)
[2018-12-09] MEDS: HUMULIN R SUBQ SCH ×4 (07:23→20:36)
[2018-12-09 07:55] LABS: BASO# 0.03 X1000 (0.0-0.2); BASO% 0.3 % (0.0-0.8); EOS# 0.01 X1000 (0.0-0.7); EOS% 0.1 % (0.0-10.0); HEMATOCRIT 23.8 % (37.0-47.0); HEMOGLOBIN 7.4 g/dL (12.0-16.0); LYMPH# 1.47 X1000 (1.2-3.4); LYMPH% 12.4 % (20.5-51.1); MCH 29.5 PG (27-31); MCHC 31.1 g/dL (33-37); MCV 94.8 FL (81-99); MONO# 1.14 X1000 (0.11-0.59); MONO% 9.6 % (1.7-9.3); MPV 11.3 FL (7.4-10.4); NEUT# 9.24 X1000 (1.4-6.5); NEUT% 77.6 % (42.2-75.2); PLT 296 X1000 (130-400); RBC 2.51 XMIL (4.2-5.4); RDW 13.9 % (11.5-14.5); WBC 11.89 X1000 (4.8-10.8)
[2018-12-09 08:01] LABS: AGAP 13; BUN 6 mg/dL (8-22); CALCIUM 8.3 mg/dL (8.8-10.2); CHLORIDE 100 mmol/L (98-107); COSMO 276; CREATININE 0.6 mg/dL (0.5-0.9); ESTIMATED GFR > 60; GLUCOSE 114 mg/dL (70-104); MAGNESIUM 2.7 mg/dL (1.5-2.7); POTASSIUM 2.9 mmol/L (3.5-5.1); SODIUM 139 mmol/L (136-145); TCO2 26 mmol/L (25-35)
[2018-12-09] MEDS: LIORESAL PO SCH ×3 (08:17→17:49)
[2018-12-09] MEDS: ASPIRIN EC PO SCH (08:17)
[2018-12-09] MEDS: MAG-OX PO SCH (08:17)
[2018-12-09] MEDS: SINGULAIR PO SCH (08:17)
[2018-12-09] MEDS: PERIDEX MT SCH ×2 (08:18→20:41)
[2018-12-09] MEDS: LOVENOX SUBQ SCH (08:18)
[2018-12-09] MEDS: PRAVACHOL PO SCH (08:18)
[2018-12-09] MEDS: LASIX IV SCH (08:18)
[2018-12-09] MEDS: ZOFRAN IV PRN (09:35)
[2018-12-09] MEDS ORDERED: KLOR-CON PO ONE (10:11)
[2018-12-09] MEDS: NS 1,000 ML IV SCH (13:29)
--- NOTE | 2018-12-09 16:52 | PROGRESS NOTE ---
DATE: 12/09/2018 SUBJECTIVE: Ms. Suarez is feeling better. She is still hurting, but it help to sit up in a chair. She feels like her bowels are moving good. Her abdomen looks good. Colostomy bag, Zack-Welch drain still in place. OBJECTIVE: Vital signs: Temp 98.8 degrees, pulse 106, respirations 18, blood pressure 143/54. HEENT: Pupils are equal and round. Lungs: Clear in all lung ordonez. Cardiovascular: Regular rhythm and rate without murmur or S3. ASSESSMENT AND PLAN: 1. Low rectal cancer status post robotic-assisted laparoscopic abdominoperitoneal resection due to rectal polyp and invasive carcinoma at the base of the polyp, confirmed. No evidence of metastatic disease. 2. History of coronary artery disease, history of congestive heart failure. Appears to be well compensated. She was taking torsemide, so I think we can probably start that back. 3. Hypertension. Blood pressure well controlled. 4. Diabetes mellitus type 2. 5. Gastroesophageal reflux. On proton pump inhibitors. 6. Treated for hyperthyroidism with methimazole and we are continuing that. 7. Peripheral neuropathy. 8. Dyslipidemia. On pravastatin. She is getting 40 mg right now of Lasix IV daily, so I think we will continue that and started her p.o. when she is able. In looking over her orders, I do not see any change. LABS: Review of her lab today, white count 11,890, hematocrit is 23, hemoglobin 7.4, platelet count 296,000. Sodium 139, potassium 2.9, chloride 100, BUN 6, creatinine 0.6. We will check a CBC again. Discussed with the surgery. If hemoglobin drops below 7 probably need to get a transfusion. cc: Flex Littlejohn MD
[2018-12-09] MEDS: TAPAZOLE PO SCH (17:49)
[2018-12-10] MEDS: NORCO-10 PO PRN ×3 (00:06→16:24)
--- NOTE | 2018-12-10 00:14 | GENERAL SURGERY PROGRESS NOTE ---
DATE: 12/09/2018 SUBJECTIVE: She is much more alert this morning, less trouble breathing. She says she is hungry. Some liquid from her ostomy, but no air. No significant loose stool. OBJECTIVE: Abdomen: Soft. Incisions are intact. I have reviewed her vital signs. Heart rate is downtrending. No fevers. Blood pressures have been in the 120s mostly. LABORATORY DATA: I reviewed her labs. Potassium is low at 2.9. ASSESSMENT AND PLAN: A 68-year-old female, status post abdominoperineal resection. She seems to be turning the corner clinically. Pulmonary status is much improved. Mobility is improving. No return of bowel function yet. We will continue clear liquids for now. I have stressed the importance of going slow. She is being diuresed. I have ordered her some oral repletion of her potassium. May need IV if she does not tolerate it, but will follow her closely. cc: MD Flex Sorensen MD
[2018-12-10] MEDS: MORPHINE IV PRN ×5 (04:44→22:04)
[2018-12-10] MEDS: HUMULIN R SUBQ SCH ×4 (06:09→20:47)
[2018-12-10] MEDS: PROTONIX PO SCH (06:10)
[2018-12-10 06:35] LABS: BASO# 0.02 X1000 (0.0-0.2); BASO% 0.2 % (0.0-0.8); EOS# 0.02 X1000 (0.0-0.7); EOS% 0.2 % (0.0-10.0); HEMATOCRIT 24.7 % (37.0-47.0); HEMOGLOBIN 7.5 g/dL (12.0-16.0); IMM GRAN# 0.11 X1000 (0.0-0.04); LYMPH# 1.56 X1000 (1.2-3.4); LYMPH% 14.6 % (20.5-51.1); MCH 28.8 PG (27-31); MCHC 30.4 g/dL (33-37); MONO# 1.03 X1000 (0.11-0.59); MONO% 9.6 % (1.7-9.3); MPV 11.1 FL (7.4-10.4); NEUT# 7.97 X1000 (1.4-6.5); NEUT% 74.4 % (42.2-75.2); PLT 334 X1000 (130-400); RDW 13.9 % (11.5-14.5); WBC 10.71 X1000 (4.8-10.8)
[2018-12-10 07:10] LABS: AGAP 8; BUN 6 mg/dL (8-22); CALCIUM 8.1 mg/dL (8.8-10.2); CHLORIDE 100 mmol/L (98-107); COSMO 270; CREATININE 0.5 mg/dL (0.5-0.9); ESTIMATED GFR > 60; GLUCOSE 106 mg/dL (70-104); POTASSIUM 3.7 mmol/L (3.5-5.1); SODIUM 136 mmol/L (136-145); TCO2 28 mmol/L (25-35)
[2018-12-10] MEDS: DUONEB (A & A) INH PRN ×3 (07:18→15:06)
[2018-12-10] MEDS: PRAVACHOL PO SCH (08:10)
[2018-12-10] MEDS: PERIDEX MT SCH ×2 (08:10→20:48)
[2018-12-10] MEDS: MAG-OX PO SCH (08:11)
[2018-12-10] MEDS: LASIX IV SCH (08:11)
[2018-12-10] MEDS: TAPAZOLE PO SCH (08:11)
[2018-12-10] MEDS: LIORESAL PO SCH ×3 (08:11→16:21)
[2018-12-10] MEDS: ASPIRIN EC PO SCH (08:11)
[2018-12-10] MEDS: SINGULAIR PO SCH (08:11)
[2018-12-10] MEDS: LOVENOX SUBQ SCH (08:11)
[2018-12-10] MEDS: NS 1,000 ML IV SCH (08:17)
--- NOTE | 2018-12-10 13:01 | GENERAL SURGERY PROGRESS NOTE ---
DATE: 12/10/2018 SUBJECTIVE: She seems more alert. Not having ostomy output yet. Cardiovascular. Her heart rate is now normal sinus rhythm. She is weaning on her O2 and is breathing more comfortably. Abdomen is soft. Ostomy distal mucosa is sloughing but approximately pink. There is liquid in the bag but no air, no stool. Perineal wound is intact. There is some serosanguineous drainage. White count down to 10, hematocrit 24, creatinine 0.5. ASSESSMENT AND PLAN: A 68-year-old female, status post abdominoperineal resection. Overall, clinically improving. It is slow, complicated by her chronic pulmonary issues and generalized deconditioning, obesity, awaiting bowel function. Will advance her diet when she tolerates this. Otherwise, her incisions are healing well with no signs of infection. cc: MD Kenney Sorensen MD
--- NOTE | 2018-12-10 14:29 | PROGRESS NOTE ---
DATE: 12/10/2018 SUBJECTIVE: Patient resting in bed. Not in any obvious distress. OBJECTIVE: Vital signs: Temperature 97.7 degrees, pulse 115, respiratory rate 16, blood pressure 153/65, oxygen saturation 100%. HEENT: He is atraumatic, normocephalic. Cardiovascular: S1, S2. Respiratory system: Has evidence of good air entry bilaterally. Abdomen: Soft. Nontender. No masses felt. Extremities: No evidence of edema. Central nervous system: No obvious focal deficits noted. LABORATORY DATA: WBCs 10.71, hematocrit 24.7, with a platelet count of 334,000. Sodium is 136, potassium 3.7, chloride is 100, bicarb 28, BUN is 6, creatinine 0.5. ASSESSMENT AND PLAN: 1. Low rectal cancer status post robotic-assisted laparoscopic abdominal peritoneal resection due to a rectal polyp as well as neoplastic change at the base of the polyp. The patient is being followed by the surgical team. The patient does have an ostomy. 2. Coronary artery disease. Asymptomatic. 3. Congestive heart failure, stable. Monitor intakes and outputs, as well as daily weights. Diuretics as needed. 4. Hypertension. Continue current regimen. 5. Diabetes mellitus. Continue blood sugar monitoring as well as sliding scale insulin. 6. Gastroesophageal reflux disease. Continue proton pump inhibitor. 7. Hyperthyroidism. Continue methimazole. 8. Dyslipidemia. Continue pravastatin. 9. Deep vein thrombosis prophylaxis. Lovenox. 10. Gastrointestinal prophylaxis. Proton pump inhibitor. cc: Kenney Ascencio MD MTDD
[2018-12-10] MEDS: ZOFRAN IV PRN (22:12)
[2018-12-11] MEDS: NORCO-10 PO PRN ×4 (00:34→21:05)
[2018-12-11] MEDS: MORPHINE IV PRN ×6 (01:57→23:30)
[2018-12-11] MEDS: NS 1,000 ML IV SCH (04:17)
[2018-12-11] MEDS: PROTONIX PO SCH ×2 (05:57→06:25)
[2018-12-11] MEDS: ZOFRAN IV PRN ×3 (06:00→23:30)
[2018-12-11] MEDS: HUMULIN R SUBQ SCH ×4 (06:24→21:07)
[2018-12-11 06:33] LABS: BASO# 0.01 X1000 (0.0-0.2); BASO% 0.1 % (0.0-0.8); EOS# 0.02 X1000 (0.0-0.7); EOS% 0.2 % (0.0-10.0); HEMATOCRIT 25.3 % (37.0-47.0); HEMOGLOBIN 7.6 g/dL (12.0-16.0); IMM GRAN# 0.08 X1000 (0.0-0.04); IMM GRAN% 0.8 % (0.0-0.5); LYMPH# 1.54 X1000 (1.2-3.4); LYMPH% 15.3 % (20.5-51.1); MCH 28.4 PG (27-31); MCV 94.4 FL (81-99); MONO# 0.97 X1000 (0.11-0.59); MONO% 9.7 % (1.7-9.3); NEUT# 7.42 X1000 (1.4-6.5); NEUT% 73.9 % (42.2-75.2); PLT 390 X1000 (130-400); RBC 2.68 XMIL (4.2-5.4); RDW 13.8 % (11.5-14.5); WBC 10.04 X1000 (4.8-10.8)
[2018-12-11 06:37] LABS: AGAP 8; ALB/GLOB RATIO 0.8; ALBUMIN 2.5 g/dL (3.5-5.0); ALKALINE PHOSPHATASE 115 U/L (32-104); BUN 5 mg/dL (8-22); CALCIUM 8.3 mg/dL (8.8-10.2); CHLORIDE 102 mmol/L (98-107); COSMO 274; CREATININE 0.6 mg/dL (0.5-0.9); ESTIMATED GFR > 60; GLUCOSE 120 mg/dL (70-104); GOT 16 U/L (10-30); GPT 15 U/L (10-36); POTASSIUM 3.8 mmol/L (3.5-5.1); SODIUM 138 mmol/L (136-145); TCO2 28 mmol/L (25-35); TOTAL PROTEIN 5.5 g/dL (6.3-8.3)
[2018-12-11] MEDS: DUONEB (A & A) INH PRN ×4 (07:36→23:15)
[2018-12-11] MEDS: ASPIRIN EC PO SCH (08:17)
[2018-12-11] MEDS: PRAVACHOL PO SCH (08:17)
[2018-12-11] MEDS: LIORESAL PO SCH ×4 (08:17→21:16)
[2018-12-11] MEDS: MAG-OX PO SCH (08:18)
[2018-12-11] MEDS: LOVENOX SUBQ SCH (08:18)
[2018-12-11] MEDS: LASIX IV SCH (08:18)
[2018-12-11] MEDS: SINGULAIR PO SCH (08:18)
[2018-12-11] MEDS: PERIDEX MT SCH ×2 (08:18→21:05)
--- NOTE | 2018-12-11 13:49 | GENERAL SURGERY PROGRESS NOTE ---
DATE: 12/11/2018 SUBJECTIVE: The patient says she feels okay. She is tolerating a liquid diet. She is hungry for food. OBJECTIVE: Vital Signs: She is afebrile. Vital signs are stable. General: She is awake, alert, oriented x3. In no acute distress. GI: Soft, appropriately tender. Incision is clean, dry, and intact. Stoma is pink. There is some gas in the bag. LABORATORY: White blood cell count 10, hematocrit 25. BMP reviewed and unremarkable. ASSESSMENT AND PLAN: A 68-year-old female status post abdominal peroneal resection. She is beginning to have better bowel function. We will increase her diet to mechanical soft.. She has been undergoing stoma teaching. We anticipate discharge to [facility] early next week. cc: MD Jose Kirk MD
--- NOTE | 2018-12-11 18:00 | PROGRESS NOTE ---
DATE: 12/11/2018 SUBJECTIVE: Patient is resting, in no distress. No new complaints. OBJECTIVE: Temperature 98, pulse 95, respiratory rate 20, BP 136/55.General: Patient is awake, currently in no respiratory distress. Pleasant to talk with. HEENT: Normocephalic. Neck: Supple. Cardiovascular: Regular rate. Chest: Clear. ASSESSMENT: 1. Low rectal cancer, status post robotic-assisted laparoscopic abdominoperitoneal resection. 2. Known coronary artery disease, currently asymptomatic. 3. Congestive heart failure, stable. 4. Hypertension. 5. Diabetes. 6. Hypothyroidism. PLAN: We will continue patient in the hospital. Continue symptomatic treatment. She currently is on full liquids. Hopefully, this can be advanced. cc: Jose Marcum MD
[2018-12-11] MEDS: TAPAZOLE PO SCH (18:08)
[2018-12-12] MEDS: NS 1,000 ML IV SCH ×2 (00:02→18:16)
[2018-12-12] MEDS: NORCO-10 PO PRN ×3 (03:06→18:11)
[2018-12-12] MEDS: MORPHINE IV PRN ×5 (04:50→23:13)
--- NOTE | 2018-12-12 05:12 | EKG Report ---
Test Performed on : 12/11/2018 8:52:51 PM Test Reason : chest tightness and tachycardia Blood Pressure : / mmHG Vent. Rate : 135 BPM Atrial Rate : 135 BPM P-R Int : 104 ms QRS Dur : 082 ms QT Int : 374 ms P-R-T Axes : -01 027 062 degrees QTc Int : 561 ms Critical Test Result: Long QTc Sinus tachycardia. with short MS Nonspecific ST and T wave abnormality Abnormal ECG When compared with ECG of 06-DEC-2018 12:13, No significant change was found Confirmed by Jenelle MIRZA, Mitchell Jc ([id number]) on 12/12/2018 7:27:12 AM
[2018-12-12] MEDS: HUMULIN R SUBQ SCH ×4 (06:01→20:42)
[2018-12-12] MEDS: PROTONIX PO SCH (06:13)
[2018-12-12] MEDS: PERIDEX MT SCH ×2 (09:57→20:21)
[2018-12-12] MEDS: SINGULAIR PO SCH (09:57)
[2018-12-12] MEDS: LOVENOX SUBQ SCH (09:57)
[2018-12-12] MEDS: LIORESAL PO SCH ×3 (09:57→20:21)
[2018-12-12] MEDS: ASPIRIN EC PO SCH (09:57)
[2018-12-12] MEDS: ZOFRAN IV PRN ×3 (09:58→22:42)
[2018-12-12] MEDS: LASIX IV SCH (09:58)
[2018-12-12] MEDS: PRAVACHOL PO SCH (09:58)
[2018-12-12] MEDS: MAG-OX PO SCH (09:58)
[2018-12-12] MEDS: DUONEB (A & A) INH PRN ×3 (11:30→22:40)
--- NOTE | 2018-12-12 15:22 | PROGRESS NOTE ---
DATE: 12/12/2018 SUBJECTIVE: Ms. Suarez feels much better. She is getting a little stronger. Her tummy still hurts a little bit when she coughs, and her hop is that she can go to rehab. Her abdomen looks good. Colostomy bag looks good and clean. OBJECTIVE: Vital Signs: Temperature 97.6 degrees, pulse 112, respirations 17, blood pressure 138/54. HEENT: Pupils are equal and round. Lungs: Clear in all lung ordonez. Cardiovascular: Regular rhythm and rate without murmur or S3. LABORATORY DATA: Urine output is 3000 mL. Blood sugars 68, 146, and 89. ASSESSMENT/PLAN: 1. Low rectal cancer status post robotic-assisted laparoscopic abdominoperitoneal resection. 2. Known coronary artery disease. No sign of active ischemia. 3. Congestive heart failure, well compensated. Volume status looks good. 4. Hypertension. 5. Diabetes mellitus type 2. Sugars under good control. 6. Hypothyroidism. She is making good progress. She wants to go to rehab, so we will get transition social worker to help us look for rehab opportunities. Reviewed her orders and reviewed her labs. Hematocrit is 25, hemoglobin 7.6 and stable. White count 10,040. Platelet count 390,000. cc: Flex Littlejohn MD
[2018-12-12] MEDS: TAPAZOLE PO SCH (18:11)
--- NOTE | 2018-12-12 18:22 | GENERAL SURGERY PROGRESS NOTE ---
DATE: 12/12/2018 SUBJECTIVE: The patient feels better today. No severe abdominal pain, nausea, or vomiting. She is eating some food. She reports some output in her ostomy. OBJECTIVE: Vitals: She is afebrile. Vital signs are stable. General: She is awake, alert, oriented x3. No acute distress. GI: Soft, nondistended. Minimally tender. Incision is clean, dry, and intact. AUNDREA drain is dark, all bloody fluid, 10 mL recorded out yesterday. The stoma in the left lower quadrant is pink with only mild duskiness. ASSESSMENT AND PLAN: A 68-year-old female status post abdominoperineal resection. She is slowly improving. She has not had great ostomy output yet. We are looking to arrange for rehab this week. cc: MD Flex Kirk MD
[2018-12-13] MEDS: DUONEB (A & A) INH PRN ×6 (00:25→23:22)
[2018-12-13] MEDS: MORPHINE IV PRN ×5 (03:13→21:53)
[2018-12-13] MEDS: ZOFRAN IV PRN ×4 (03:45→21:54)
[2018-12-13] MEDS: PROTONIX PO SCH ×2 (05:55→07:17)
[2018-12-13] MEDS: NORCO-10 PO PRN ×2 (05:55→19:23)
[2018-12-13 06:47] LABS: BASO# 0.03 X1000 (0.0-0.2); BASO% 0.3 % (0.0-0.8); HEMATOCRIT 25.6 % (37.0-47.0); LYMPH# 1.51 X1000 (1.2-3.4); LYMPH% 12.7 % (20.5-51.1); MCH 29.4 PG (27-31); MCHC 31.3 g/dL (33-37); MCV 94.1 FL (81-99); MONO# 1.23 X1000 (0.11-0.59); MONO% 10.3 % (1.7-9.3); NEUT# 9.14 X1000 (1.4-6.5); NEUT% 76.7 % (42.2-75.2); PLT 434 X1000 (130-400); RBC 2.72 XMIL (4.2-5.4); RDW 13.9 % (11.5-14.5); WBC 11.91 X1000 (4.8-10.8)
[2018-12-13] MEDS: HUMULIN R SUBQ SCH ×4 (06:54→21:54)
[2018-12-13] MEDS: LASIX IV SCH (08:13)
[2018-12-13] MEDS: MAG-OX PO SCH (08:13)
[2018-12-13] MEDS: TAPAZOLE PO SCH (08:13)
[2018-12-13] MEDS: LOVENOX SUBQ SCH (08:13)
[2018-12-13] MEDS: ASPIRIN EC PO SCH (08:13)
[2018-12-13] MEDS: LIORESAL PO SCH ×3 (08:14→17:16)
[2018-12-13] MEDS: PRAVACHOL PO SCH (08:14)
[2018-12-13] MEDS: PERIDEX MT SCH ×2 (08:15→21:53)
[2018-12-13] MEDS: SINGULAIR PO SCH (09:58)
[2018-12-13] MEDS: NS 1,000 ML IV SCH (12:45)
--- NOTE | 2018-12-13 16:57 | PROGRESS NOTE ---
DATE: 12/13/2018 SUBJECTIVE: Ms. Suarez says she has just not felt good today, nauseated. She did get a little bit of crackers and juice down, but just feel felt nauseated. OBJECTIVE: Vital Signs: She remains afebrile, temperature 98.2 degrees pulse 106, respirations 16, blood pressure 151/57. HEENT: Pupils are equal and round. Lungs: Clear in all lung ordonez. Cardiovascular: Regular rhythm and rate without murmur or S3. Abdomen: Soft. Skin: Warm and dry. Urine output is 3 L. ASSESSMENT AND PLAN: 1. Status post abdominoperineal resection, slowly improving. She has not had great ostomy output yet and nauseated today. She is hoping to go to rehab; does not want to go today. 2. Low rectal cancer status post robotic-assisted laparoscopic abdominal peritoneal resection. 3. Known coronary artery disease. No sign of active cardiac ischemia at this time. 4. Congestive heart failure. Volume status looks good. Appears to be good compensation. 5. Hypertension. Blood pressure well controlled. 6. Diabetes mellitus type 2. Sugars under control. 7. History of hypothyroidism. Continue current medications. REVIEW OF ORDERS: The patient is on aspirin 81 mg a day, Lioresal 10 mg p.o. t.i.d., Lasix 40 mg IV daily, Lovenox 40 mg subcutaneous q.24 hours, Ativan 0.5 mg p.o. t.i.d. p.r.n., Protonix 40 mg daily, Pravachol 20 mg daily, and tramadol 50 mg p.o. q.6 hours. LABORATORY DATA: From today, white count is 11,910, hematocrit is 25, hemoglobin is 8, platelet count 434,000. Blood sugars 117, 124, 115. So hopefully can go to rehab tomorrow. cc: Flex Littlejohn MD
[2018-12-14] MEDS: DUONEB (A & A) INH PRN ×6 (04:04→23:12)
[2018-12-14] MEDS: MORPHINE IV PRN ×3 (04:26→13:33)
[2018-12-14] MEDS: ZOFRAN IV PRN ×4 (04:26→22:31)
[2018-12-14] MEDS: NORCO-10 PO PRN ×3 (06:05→23:50)
[2018-12-14] MEDS: NS 1,000 ML IV SCH (06:05)
[2018-12-14] MEDS: PROTONIX PO SCH (06:05)
[2018-12-14] MEDS: HUMULIN R SUBQ SCH ×4 (06:06→20:21)
[2018-12-14 08:18] LABS: HEMATOCRIT 25.8 % (37.0-47.0); HEMOGLOBIN 7.7 g/dL (12.0-16.0); MCHC 29.8 g/dL (33-37); MCV 93.8 FL (81-99); RBC 2.75 XMIL (4.2-5.4); RDW 13.9 % (11.5-14.5); WBC 11.36 X1000 (4.8-10.8)
[2018-12-14 08:32] LABS: AGAP 12; BUN 7 mg/dL (8-22); CALCIUM 8.2 mg/dL (8.8-10.2); CHLORIDE 101 mmol/L (98-107); COSMO 277; CREATININE 0.5 mg/dL (0.5-0.9); ESTIMATED GFR > 60; GLUCOSE 127 mg/dL (70-104); POTASSIUM 3.7 mmol/L (3.5-5.1); SODIUM 139 mmol/L (136-145); TCO2 26 mmol/L (25-35)
[2018-12-14] MEDS: ASPIRIN EC PO SCH (09:17)
[2018-12-14] MEDS: FLAGYL 500 MG/NS 500 MG/100 ML IVPB IV SCH ×3 (09:17→20:37)
[2018-12-14] MEDS: LOVENOX SUBQ SCH (09:18)
[2018-12-14] MEDS: PERIDEX MT SCH ×2 (09:18→20:38)
[2018-12-14] MEDS: LASIX IV SCH ×2 (09:18→20:38)
[2018-12-14] MEDS: MAG-OX PO SCH (09:18)
[2018-12-14] MEDS: LIORESAL PO SCH ×3 (09:18→16:34)
[2018-12-14] MEDS: PRAVACHOL PO SCH (09:19)
[2018-12-14] MEDS: SINGULAIR PO SCH (09:19)
--- NOTE | 2018-12-14 10:29 | GENERAL SURGERY PROGRESS NOTE ---
DATE: 12/13/2018 SUBJECTIVE: The patient was seen in the late afternoon on 12/13/2018. She complains of some nausea and abdominal discomfort. She is not able to eat much. She has thrown up a couple of times. OBJECTIVE: She is afebrile. Pulse in the low 100s, blood pressure 151/57, O2 saturation 98%.General: She is awake, alert, oriented x3. She appears ill, but in no acute distress. CV: Tachycardic and regular. Respiratory: Bilateral breath sounds. No work of breathing. Gastrointestinal: Soft, nondistended. Incision is clean, dry, and intact. Ostomy is pink, but no output in the bag. Perineum has some edema and some cloudy drainage through the incision. LABORATORY: White blood cell count 11.9, hemoglobin 8, hematocrit 25. ASSESSMENT AND PLAN: A 68-year-old female status post abdominal peroneal resection. She has had some low-grade fevers. Her white count is up a little bit. She is not feeling well and had some emesis. We will check a CT of the abdomen and pelvis to check for any abscesses that may be developing or postoperative ileus. Again, she is not having very good ostomy output. She is also not having very good oral intake. I think we need to restart some antibiotics given the appearance of her perineal wound and low-grade fever. cc: MD Leigh Ann Kirk MD
[2018-12-14] MEDS: ROCEPHIN 1 GM in NS 50 ML IV SCH (11:18)
--- NOTE | 2018-12-14 11:29 | Diag Imaging Result Doc PS360 ---
CT ABD/PELVIS W/PO AND IV CON - 12/14/2018 INDICATION: post op APR, nausea, pain, perineal drainage COMPARISON: 11/22/2018 FINDINGS: There are trace bilateral pleural effusions. There is some rounded opacity in the right major fissure most likely some loculated fluid. There is advanced COPD in the lung bases. There is probably some mild pulmonary edema as well. Heart size is top normal. Small hiatal hernia. There are a couple stable tiny liver cysts, otherwise abdominal organs are all normal. There is significant flank edema bilaterally. There is a surgical drain in the posterior dependent pelvis. This extends all way to the right lower quadrant. There are couple of small presacral fluid collections. The largest measures 2.3 x 4.9 cm in AP and lateral dimensions. The others measure less than a centimeter. There has been rectal resection with left lower quadrant colostomy. No free air. No bowel obstruction. Bustillos catheter in the urinary bladder. Uterus or uterine remnant is normal. There are moderate degenerative changes of the spine. No acute or suspicious bony lesion. IMPRESSION: 1. There are a couple small presacral fluid collections that are nonspecific. 2. Pleural effusions. Significant flank edema. 3. Probable mild pulmonary edema in the lung bases. This exam was performed using automated exposure control, adjustment of mA or kV according to patient size, and/or use of iterative reconstruction technique Electronically signed by Alfredo Elizalde 12/14/2018 11:27 AM
--- NOTE | 2018-12-14 16:39 | GENERAL SURGERY PROGRESS NOTE ---
DATE: 12/14/2018 SUBJECTIVE: The patient continues to have nausea but no vomiting today. She is drinking a little bit of clear liquids. OBJECTIVE: Vitals: She is afebrile. Vital signs are stable. General: She is awake, alert, oriented x3. No acute distress. GI: Soft, mildly tender but no rebound or guarding. Her incisions are clean, dry, intact. Her perineal wound, however, is intact with seropurulent drainage on the gauze. LABORATORY: White blood cell count 11, hemoglobin 7.7. Electrolytes reviewed, unremarkable. IMAGING: CT of the abdomen and pelvis revealed a small presacral fluid collection, pleural effusions, flank edema, and mild pulmonary edema in the lung bases. ASSESSMENT AND PLAN: A 68-year-old female status post abdominoperineal resection. There is probably a mild infection of the perineal wound and presacral space. I have restarted Rocephin and Flagyl. The incision still seems to be mostly intact in the perineum. There is some seepage through it. I will allow this to drain on its own without formal incision and drainage at this time. Her oral intake remains poor. Hopefully, as the infection clears, she will be able to eat better. Dr. Serrano will be back in 2 days, and we are hopefully going to be able to discharge her to rehab by the end of the week. cc: MD Leigh Ann Kirk MD
[2018-12-14] MEDS: TAPAZOLE PO SCH (18:18)
[2018-12-14] MEDS: ULTRAM PO PRN (18:24)
[2018-12-14] MEDS: TYLENOL PO PRN (18:24)
--- NOTE | 2018-12-14 20:39 | PROGRESS NOTE ---
DATE: 12/14/2018 SUBJECTIVE: The patient states that she feels nauseous and complains of abdominal pain. OBJECTIVE: Vital signs: Temperature 98.6 degrees, blood pressure 148/54, heart rate 114, respirations 20, O2 saturations 100% on 2 L nasal cannula. Intake 2 L, output 2.7 L. General: This is a morbidly obese female lying in bed in no acute distress. Heart: S1, S2 normal. Tachycardic. Lungs: Equal air entry bilaterally. No wheezing. No rales. Abdomen: Positive bowel sounds. The colostomy bag is in place. The patient's abdomen is distended. Extremities: No edema, no cyanosis. Neuro: The patient is alert and oriented x4. LABS: White blood cell count 11, hemoglobin 7.7, hematocrit 25, platelets 48,000. Sodium 139, potassium 3.7, chloride 101, CO2 26, BUN 7, creatinine 0.5 glucose 127. ASSESSMENT AND PLAN: 1. Status post robot-assisted laparoscopic abdominoperineal resection. The patient may have a mild infection. Antibiotics have been restarted by the general surgeon. We will continue to monitor the patient closely. She is nauseous today as she is receiving Zofran p.r.n. 2. Bilateral pleural effusions with mild pulmonary edema. The patient is currently on IV Lasix once a day. We will increase this every 12 hours and monitor the patient's response. 3. Chronic hypoxemic respiratory failure. Continue with supplemental oxygen. 4. Anemia. The patient's hemoglobin and hematocrit are low, but stable. Will continue to monitor closely. 5. Hyperthyroidism. Continue on Tapazole. 6. Deep vein thrombosis prophylaxis. Continue on Lovenox. cc: Leigh Ann Quijano MD
[2018-12-14] MEDS: ATIVAN PO PRN (23:50)
[2018-12-15] MEDS: ULTRAM PO PRN (01:34)
[2018-12-15] MEDS: FLAGYL 500 MG/NS 500 MG/100 ML IVPB IV SCH ×4 (02:51→20:30)
[2018-12-15] MEDS: DUONEB (A & A) INH PRN ×5 (03:21→22:53)
[2018-12-15] MEDS: PROTONIX PO SCH ×2 (05:51→06:01)
[2018-12-15] MEDS: ZOFRAN IV PRN ×3 (05:55→20:29)
[2018-12-15] MEDS: HUMULIN R SUBQ SCH ×4 (06:18→22:45)
[2018-12-15 06:43] LABS: RETIC% 2.83 % (0.8-2.1); RETIC-HE 24.7 PG (28.2-36.6)
[2018-12-15 07:15] LABS: IRON SATURATION 9 %; TIBC 175 ug/dL; TOTAL IRON 16 ug/dL (49-151); UNBOUND IRON 159 ug/dL (112-346)
[2018-12-15 07:18] LABS: HEMOGLOBIN A1C 5.7 % (4.8-6.0)
[2018-12-15 07:28] LABS: AGAP 13; BUN 6 mg/dL (8-22); CALCIUM 7.5 mg/dL (8.8-10.2); CHLORIDE 100 mmol/L (98-107); COSMO 278; CREATININE 0.6 mg/dL (0.5-0.9); ESTIMATED GFR > 60; GLUCOSE 121 mg/dL (70-104); MAGNESIUM 2.3 mg/dL (1.5-2.7); PHOSPHORUS 3.7 mg/dL (2.7-4.5); POTASSIUM 2.9 mmol/L (3.5-5.1); SODIUM 140 mmol/L (136-145); TCO2 27 mmol/L (25-35)
--- NOTE | 2018-12-15 07:30 | Diag Imaging Result Doc PS360 ---
EXAM: CHEST-1 VIEW HISTORY: pulmonary edema TECHNIQUE: Single view COMPARISON: 12/08/2018 FINDINGS: There are increased interstitial markings in the lower lungs with mild pulmonary edema. Trace right pleural fluid. No cardiomegaly. Sternal wires are present. IMPRESSION: No interval improvement. Electronically signed by Wilberto Richardson 12/15/2018 7:27 AM
[2018-12-15] MEDS ORDERED: POTASSIUM CHLORIDE 60 MEQ in NS 500 ML IV ONE (07:43)
[2018-12-15 07:52] LABS: HEMATOCRIT 25.2 % (37.0-47.0); HEMOGLOBIN 7.7 g/dL (12.0-16.0); MCH 28.5 PG (27-31); MCHC 30.6 g/dL (33-37); MCV 93.3 FL (81-99); MPV 11.3 FL (7.4-10.4); RBC 2.7 XMIL (4.2-5.4); RDW 13.9 % (11.5-14.5); WBC 10.82 X1000 (4.8-10.8)
[2018-12-15 08:09] LABS: FERRITIN 125 ng/mL (13-150)
[2018-12-15] MEDS: NORCO-10 PO PRN ×3 (08:17→20:30)
[2018-12-15] MEDS: ASPIRIN EC PO SCH (09:09)
[2018-12-15] MEDS: ROCEPHIN 1 GM in NS 50 ML IV SCH (09:09)
[2018-12-15] MEDS: LASIX IV SCH ×2 (09:10→20:29)
[2018-12-15] MEDS: SINGULAIR PO SCH (09:11)
[2018-12-15] MEDS: PRAVACHOL PO SCH (09:11)
[2018-12-15] MEDS: LIORESAL PO SCH ×3 (09:12→17:38)
[2018-12-15] MEDS: LOVENOX SUBQ SCH (09:12)
[2018-12-15] MEDS: MAG-OX PO SCH (09:12)
[2018-12-15] MEDS: PERIDEX MT SCH ×2 (09:12→20:29)
[2018-12-15] MEDS: TAPAZOLE PO SCH (09:37)
[2018-12-15] MEDS ORDERED: KLOR-CON PO ONE ×2 (11:24→19:02)
--- NOTE | 2018-12-15 12:41 | GENERAL SURGERY PROGRESS NOTE ---
DATE: 12/15/2018 SUBJECTIVE: The patient feels better today with less pain. Still some nausea, no vomiting. She is eating and drinking a little bit, but not a lot. Stoma output remains low. OBJECTIVE: She is afebrile. Vital signs are stable.General: She is awake, alert, oriented x3. No acute distress. GI: Soft. Incision is clean, dry, and intact. She does have hypoactive bowel sounds. Stoma is pink with some ischemic edges and slough. LABORATORY: White cell count 10, hemoglobin 7.7, hematocrit 25. Electrolytes reviewed and unremarkable. ASSESSMENT AND PLAN: A 68-year-old female status post abdominal peroneal resection. She does have a pelvic infection. She is on Rocephin and Flagyl. She still has low ostomy output. Dr. Serrano will be back tomorrow and reassess her for any revision to the ostomy or perineal wound drainage. cc: MD Leigh Ann Kirk MD
[2018-12-15] MEDS: VENOFER 200 MG in NS 150 ML IV SCH (17:38)
--- NOTE | 2018-12-15 20:20 | PROGRESS NOTE ---
DATE: 12/15/2018 SUBJECTIVE: The patient is resting comfortably in bed. She states that she is not feeling nauseated today. She states that her abdominal pain is better. OBJECTIVE: Vital Signs: Temperature 97.8 degrees, blood pressure 125/57, heart rate 100, respirations 18, O2 saturation 99% on 2 L nasal cannula. Intake 1.3 L, output 3.2 L. General: This is a morbidly obese female, lying in bed in no acute distress. Heart: S1, S2 normal. Tachycardic. Lungs: Equal air entry bilaterally. No wheezing. No rales. Abdomen: Positive bowel sounds. Soft, obese, nontender, nondistended. Extremities: No edema, no cyanosis. Neurologic: The patient is alert and oriented x3. LABS: White blood cell count 10, hemoglobin 7.7, hematocrit 25, platelets 507,000. Sodium 140, potassium 3.1, BUN 6, creatinine 0.6, glucose 121. Iron level 16, percent saturation 9%. ASSESSMENT AND PLAN: 1. Status post robot assisted laparoscopic abdominoperineal resection. Continue with management as directed by the general surgeon. 2. Bilateral pleural effusions with pulmonary edema. Continue on diuretic therapy. The patient appears to be diuresing well. 3. Chronic hypoxemic respiratory failure. Continue with supplemental oxygen. 4. Hypokalemia. We will replace the patient's potassium. 5. Iron deficiency anemia. We will start the patient on intravenous iron. 6. Hypothyroidism. Continue on Tapazole. 7. Deep vein thrombosis prophylaxis. Continue on Lovenox. 8. Continue with physical therapy. 9. Disposition. The patient will be discharged to rehab once cleared by the general surgeon. cc: Leigh Ann Quijano MD [facility]
[2018-12-16] MEDS: ZOFRAN IV PRN ×4 (02:34→21:09)
[2018-12-16] MEDS: NORCO-10 PO PRN ×4 (02:34→21:08)
[2018-12-16] MEDS: FLAGYL 500 MG/NS 500 MG/100 ML IVPB IV SCH ×4 (02:34→21:07)
[2018-12-16 06:04] LABS: BASO# 0.02 X1000 (0.0-0.2); BASO% 0.2 % (0.0-0.8); EOS# 0.01 X1000 (0.0-0.7); EOS% 0.1 % (0.0-10.0); HEMATOCRIT 26.4 % (37.0-47.0); IMM GRAN# 0.15 X1000 (0.0-0.04); IMM GRAN% 1.6 % (0.0-0.5); LYMPH# 1.68 X1000 (1.2-3.4); LYMPH% 18.5 % (20.5-51.1); MCH 28.3 PG (27-31); MCHC 30.3 g/dL (33-37); MCV 93.3 FL (81-99); MONO# 1.12 X1000 (0.11-0.59); MONO% 12.3 % (1.7-9.3); NEUT# 6.12 X1000 (1.4-6.5); NEUT% 67.3 % (42.2-75.2); PLT 547 X1000 (130-400); RBC 2.83 XMIL (4.2-5.4); RDW 14.1 % (11.5-14.5)
[2018-12-16] MEDS: HUMULIN R SUBQ SCH ×4 (06:08→22:51)
[2018-12-16] MEDS: PROTONIX PO SCH (06:09)
[2018-12-16 06:29] LABS: AGAP 11; ALBUMIN 2.5 g/dL (3.5-5.0); BUN 5 mg/dL (8-22); CALCIUM 8.1 mg/dL (8.8-10.2); CHLORIDE 99 mmol/L (98-107); COSMO 271; CREATININE 0.6 mg/dL (0.5-0.9); ESTIMATED GFR > 60; GLUCOSE 98 mg/dL (70-104); MAGNESIUM 2.2 mg/dL (1.5-2.7); PHOSPHORUS 3.4 mg/dL (2.7-4.5); POTASSIUM 3.7 mmol/L (3.5-5.1); SODIUM 137 mmol/L (136-145); TCO2 27 mmol/L (25-35)
[2018-12-16] MEDS: ROCEPHIN 1 GM in NS 50 ML IV SCH (08:21)
[2018-12-16] MEDS: PERIDEX MT SCH ×2 (08:22→21:07)
[2018-12-16] MEDS: LASIX IV SCH ×2 (08:23→21:07)
[2018-12-16] MEDS: MAG-OX PO SCH (08:23)
[2018-12-16] MEDS: SINGULAIR PO SCH (08:24)
[2018-12-16] MEDS: LOVENOX SUBQ SCH (08:24)
[2018-12-16] MEDS: LIORESAL PO SCH ×3 (08:24→17:20)
[2018-12-16] MEDS: ASPIRIN EC PO SCH (08:25)
[2018-12-16] MEDS: PRAVACHOL PO SCH (08:25)
[2018-12-16] MEDS: VENOFER 200 MG in NS 150 ML IV SCH (08:26)
--- NOTE | 2018-12-16 15:01 | PROGRESS NOTE ---
DATE: 12/16/2018 SUBJECTIVE: The patient is resting comfortably in bed. She states she feels a lot better today. She ate some of her breakfast. OBJECTIVE: Vital Signs: Temperature 98 degrees, blood pressure 130/45, heart rate 105, respirations 18, and O2 saturation 99% on 2 L nasal cannula. Intake 1.4 L. Output 2.2 L. General: This is a chronically ill-appearing elderly male lying in bed in no acute distress. Heart: S1, S2 normal. Tachycardic. Lungs: Equal air entry bilaterally. No wheezing. No rales. Abdomen: Positive bowel sounds. Soft, nontender, and nondistended. Extremities: No edema. No cyanosis. Neurologic: The patient is alert and oriented x4. LABORATORY DATA: White blood cell count 9, hemoglobin 8, hematocrit 26 and platelets 547,000. Sodium 137, potassium 3.7, chloride 99, CO2 27, BUN 5, creatinine 0.6, and glucose 98. ASSESSMENT AND PLAN: 1. Status post robotic assisted laparoscopic abdominoperineal resection. Management as per the general surgeon. 2. Bilateral pleural effusions and pulmonary edema. Slowly improving. Continue with diuretic therapy. 3. Chronic hypoxemic respiratory failure. Stable. Continue with supplemental oxygen. 4. Iron deficiency anemia. Continue with iron infusion therapy. 5. Hyperthyroidism. Continue on Tapazole. 6. Deep vein thrombosis prophylaxis. Continue on Lovenox. 7. Continue with physical therapy. 8. Disposition. The patient will be discharged to rehab once cleared by the general surgeon. cc: Leigh Ann Quijano MD MTDD
[2018-12-16] MEDS: TAPAZOLE PO SCH (17:20)
--- NOTE | 2018-12-16 17:44 | GENERAL SURGERY PROGRESS NOTE ---
DATE: 12/16/2018 SUBJECTIVE: She is doing well. She seems to be breathing comfortably. She had no fevers, no tachycardia overnight. Only liquid per ostomy. No real air. The mucosa is sloughing distally but is pink proximally. OBJECTIVE: Vital signs: No fevers. Pulse is occasionally dipping in the low 100. Blood pressure 138/45, oxygen saturation 99% on 2 L. General: She is alert. Abdomen: Soft. Mildly distended. Incisions are intact. Her drain is out. Her perineal wound is intact with no cellulitis. No significant drainage. Ostomy has some sloughing of the mucosa distally and some liquid in the bag. LABS: I reviewed her labs. Her white count is normal at 9, hematocrit is 26. Creatinine is 0.6. ASSESSMENT AND PLAN: A 68-year-old female status post abdominoperineal resection, slow improvement. She has a persistent ileus. I am going to start her on some MiraLAX. She was quite constipated during surgery. I reviewed her medications. She is on antibiotics for a pelvic fluid collection. She is still receiving Lasix daily, 81 aspirin, Lovenox. I have encouraged her to be out of bed and participating in pulmonary toileting, limiting narcotics. cc: MD Leigh Ann Sorensen MD
[2018-12-16] MEDS: DUONEB (A & A) INH PRN (19:17)
[2018-12-17] MEDS: FLAGYL 500 MG/NS 500 MG/100 ML IVPB IV SCH ×4 (02:57→20:16)
[2018-12-17] MEDS: NORCO-10 PO PRN ×4 (02:59→22:28)
[2018-12-17] MEDS: PROTONIX PO SCH (06:03)
[2018-12-17] MEDS: HUMULIN R SUBQ SCH ×4 (06:07→20:26)
[2018-12-17 06:08] LABS: HEMATOCRIT 27.2 % (37.0-47.0); HEMOGLOBIN 8.3 g/dL (12.0-16.0); MCHC 30.5 g/dL (33-37); MCV 95.1 FL (81-99); MPV 11.3 FL (7.4-10.4); RBC 2.86 XMIL (4.2-5.4); RDW 14.6 % (11.5-14.5); WBC 10.4 X1000 (4.8-10.8)
[2018-12-17 06:32] LABS: AGAP 9; ALBUMIN 2.8 g/dL (3.5-5.0); BUN 7 mg/dL (8-22); CALCIUM 8.3 mg/dL (8.8-10.2); CHLORIDE 103 mmol/L (98-107); COSMO 280; CREATININE 0.7 mg/dL (0.5-0.9); ESTIMATED GFR > 60; GLUCOSE 110 mg/dL (70-104); PHOSPHORUS 3.1 mg/dL (2.7-4.5); POTASSIUM 4.3 mmol/L (3.5-5.1); SODIUM 141 mmol/L (136-145); TCO2 29 mmol/L (25-35)
[2018-12-17] MEDS: DUONEB (A & A) INH PRN ×5 (07:47→22:55)
[2018-12-17] MEDS: ROCEPHIN 1 GM in NS 50 ML IV SCH (08:07)
[2018-12-17] MEDS: LIORESAL PO SCH ×3 (08:08→20:16)
[2018-12-17] MEDS: SINGULAIR PO SCH (08:08)
[2018-12-17] MEDS: PERIDEX MT SCH ×2 (08:08→20:17)
[2018-12-17] MEDS: TAPAZOLE PO SCH (08:08)
[2018-12-17] MEDS: PRAVACHOL PO SCH (08:08)
[2018-12-17] MEDS: MAG-OX PO SCH (08:09)
[2018-12-17] MEDS: LASIX IV SCH (08:09)
[2018-12-17] MEDS: LOVENOX SUBQ SCH (08:09)
[2018-12-17] MEDS: ASPIRIN EC PO SCH (08:09)
--- NOTE | 2018-12-17 08:48 | Diag Imaging Result Doc PS360 ---
EXAM: CHEST-1 VIEW HISTORY: pulmonary edema TECHNIQUE: Single view COMPARISON: 12/15/2018 FINDINGS: The lungs are well expanded. The heart is not enlarged. There are sternal wires. The vessels are not distended. There are no infiltrates. No effusion identified. The right hemidiaphragm is elevated. IMPRESSION: No pulmonary edema on the current study. Electronically signed by Wilberto Richardson 12/17/2018 8:45 AM
[2018-12-17] MEDS: MIRALAX PO SCH ×2 (10:02→20:16)
[2018-12-17] MEDS: VENOFER 200 MG in NS 150 ML IV SCH (10:02)
[2018-12-17] MEDS: ZOFRAN IV PRN ×3 (10:05→22:29)
--- NOTE | 2018-12-17 12:52 | GENERAL SURGERY PROGRESS NOTE ---
DATE: 12/17/2018 SUBJECTIVE: She is doing much better. She is walking. She was walking in the [place] twice yesterday. No fevers. No tachycardia. Her abdomen is soft. Incisions are intact. Ostomy has pink mucosa with some liquid in the bag. White count remains normal at 10, hematocrit 27. Creatinine 0.7, potassium 4.3. Magnesium is 2.4. Chest x-ray shows some pulmonary edema. ASSESSMENT AND PLAN: This is a 68-year-old female status post abdominoperineal resection. She has had slow return of bowel function. I do not have a high clinical suspicion for infection. I do think she is overall doing okay. Her bowel function has been slow to resolve the ileus, but she is tolerating p.o. Will start MiraLAX twice daily. She is having some air per her ostomy. She is on aspirin, Lovenox, Lasix, as well as other appropriate home medications. I do think we can start her Plavix back in the next day or 2. Dr. Reyna is following the patient for the weekend. I am also going to remove her Bustillos catheter today. cc: MD Leigh Ann Sorensen MD
--- NOTE | 2018-12-17 18:09 | PROGRESS NOTE ---
DATE: 12/17/2018 SUBJECTIVE: The patient states that she feels a lot better today. Her breathing is better and she is eating more. OBJECTIVE: Vital Signs: Temperature 98.2 degrees blood pressure 118/42, heart rate 102, respirations 15, O2 saturation 95% on 2 L nasal cannula. Intake 2.1 L. Output 3.4 L. General: This is an obese female lying in bed in no acute distress. Heart: S1, S2 normal. Tachycardic. Lungs: Equal air entry bilaterally. No crackles. No rales. Abdomen: Positive bowel sounds. Soft, nontender, nondistended. Extremities: No edema. No cyanosis. No calf tenderness. Neurologic: The patient is alert and oriented x4. LABORATORY DATA: Sodium 141, white blood cell count 10, hemoglobin 8.3, hematocrit 27.2, glucose 110, platelets 587,000, creatinine 0.7, magnesium 2.4, phosphorus 3.1. Chest x-ray shows no pulmonary edema. ASSESSMENT AND PLAN: 1. Chronic hypoxemic respiratory failure. Stable. The pulmonary edema has resolved. 2. Status post robotic assistance laparoscopic abdominoperineal resection. Management as per the general surgeon. 3. Iron deficiency anemia. Continue with iron infusion therapy. 4. Hyperthyroidism. Continue on Tapazole. 5. Obesity. Aware. 6. Deep vein thrombosis prophylaxis. Continue on Lovenox. 7. Continue with physical therapy. cc: Leigh Ann Quijano MD MTDD
[2018-12-18] MEDS: FLAGYL 500 MG/NS 500 MG/100 ML IVPB IV SCH ×4 (02:24→20:11)
[2018-12-18] MEDS: DUONEB (A & A) INH PRN ×2 (03:41→07:58)
[2018-12-18] MEDS: ZOFRAN IV PRN ×3 (06:04→20:10)
[2018-12-18] MEDS: NORCO-10 PO PRN ×3 (06:04→20:10)
[2018-12-18] MEDS: PROTONIX PO SCH (06:05)
[2018-12-18] MEDS: HUMULIN R SUBQ SCH ×4 (06:31→21:52)
[2018-12-18 06:43] LABS: HEMATOCRIT 30.7 % (37.0-47.0); HEMOGLOBIN 9.2 g/dL (12.0-16.0); MCH 28.8 PG (27-31); MCV 95.9 FL (81-99); PLT 791 X1000 (130-400); RDW 15.1 % (11.5-14.5); WBC 14.52 X1000 (4.8-10.8)
[2018-12-18 07:08] LABS: AGAP 18; ALBUMIN 3.5 g/dL (3.5-5.0); BUN 5 mg/dL (8-22); CALCIUM 8.7 mg/dL (8.8-10.2); CHLORIDE 99 mmol/L (98-107); COSMO 279; CREATININE 0.7 mg/dL (0.5-0.9); ESTIMATED GFR > 60; GLUCOSE 105 mg/dL (70-104); PHOSPHORUS 3.9 mg/dL (2.7-4.5); SODIUM 141 mmol/L (136-145); TCO2 24 mmol/L (25-35)
[2018-12-18 07:16] LABS: LYMPHS 28 % (21-51); MONO 2 % (1-9); SEGS 64 % (42-75)
[2018-12-18] MEDS: ROCEPHIN 1 GM in NS 50 ML IV SCH (08:46)
[2018-12-18] MEDS: MIRALAX PO SCH ×2 (08:46→20:10)
[2018-12-18] MEDS: LOVENOX SUBQ SCH (08:46)
[2018-12-18] MEDS: PERIDEX MT SCH ×2 (08:46→20:11)
[2018-12-18] MEDS: LIORESAL PO SCH ×3 (08:47→16:56)
[2018-12-18] MEDS: PRAVACHOL PO SCH (08:47)
[2018-12-18] MEDS: MAG-OX PO SCH (08:47)
[2018-12-18] MEDS: ASPIRIN EC PO SCH (08:47)
[2018-12-18] MEDS: LASIX PO SCH (08:47)
[2018-12-18] MEDS: SINGULAIR PO SCH (08:47)
--- NOTE | 2018-12-18 10:29 | GENERAL SURGERY PROGRESS NOTE ---
DATE: 12/18/2018 SUBJECTIVE: Patient seems to be doing okay. She has a little bit of nausea but otherwise has been doing fine. OBJECTIVE: Vital Signs: Patient is currently afebrile. Her vital signs are stable. General: No acute distress. Cardiovascular: Regular rate and rhythm. Lungs: Grossly clear. Abdomen: Soft. Ostomy appears viable with no real output noted. LABORATORY: White blood count is up to 14 hematocrit 37, platelet count 791,000. Remainder of labs reviewed. ASSESSMENT AND PLAN: A 68-year-old female status post APR. She is awaiting return definitive return of bowel function. She has some degree of an ileus. Her white blood cell count has increased. She had a relatively recent workup for this and is on antibiotics, may just want to repeat her labs in the morning. She has not had a fever. We will continue supportive care. Await return of bowel function. cc: MD Leigh Ann Shukla MD
[2018-12-18] MEDS: VALTREX PO SCH ×2 (10:55→20:10)
[2018-12-18] MEDS: TAPAZOLE PO SCH ×2 (16:56→17:24)
--- NOTE | 2018-12-18 17:30 | PROGRESS NOTE ---
DATE: 12/18/2018 SUBJECTIVE: The patient has developed some vesicles on her right leg that are itchy and painful. OBJECTIVE: Vital Signs: Temperature 98.1 degrees, blood pressure 114/52, heart rate 105 respiratory rate 16, and O2 saturation is 98% on 2 L nasal cannula. General: This is an overweight female lying in bed in no acute distress. Heart: S1, S2 normal. Tachycardic. Lungs: Clear to auscultation bilaterally. Abdomen: Positive bowel sounds. Soft, nontender, nondistended. Extremities: The patient has some small vesicles on the lateral aspect of the right leg below the knee. There is also a small grouping of vesicles above the right ankle. LABORATORIES: White blood cell count 14, hemoglobin 9.2, hematocrit 30, platelets 791,000. Sodium 141, potassium 4, chloride 99, CO2 of 24, BUN 5, creatinine 0.7, glucose 105, albumin 3.5. ASSESSMENT AND PLAN: 1. Chronic hypoxemic respiratory failure. Stable. Continue on supplemental oxygen and bronchodilators. 2. Shingles. We will start the patient on Valtrex and place the patient on isolation 3. Status post robot-assisted laparoscopic abdominoperineal resection. Stable. Management as per the general surgeon. 4. Iron deficiency anemia. Improved. We will place the patient on oral iron supplementation. 5. Diabetes mellitus type 2. Continue on sliding scale insulin. 6. Hyperthyroidism. Continue on Tapazole. 7. Anxiety disorder. Continue on p.r.n. Ativan. 8. Deep vein thrombosis prophylaxis. Continue on Lovenox. cc: Leigh Ann Quijano MD MTDD
[2018-12-18] MEDS: ICAR-C PO SCH (20:10)
[2018-12-19] MEDS: ZOFRAN IV PRN ×4 (01:05→19:50)
[2018-12-19] MEDS: NORCO-10 PO PRN ×4 (01:05→19:50)
[2018-12-19] MEDS: ATIVAN PO PRN (01:12)
[2018-12-19] MEDS: FLAGYL 500 MG/NS 500 MG/100 ML IVPB IV SCH ×4 (01:54→20:15)
[2018-12-19 06:18] LABS: BASO# 0.03 X1000 (0.0-0.2); BASO% 0.3 % (0.0-0.8); EOS# 0.01 X1000 (0.0-0.7); EOS% 0.1 % (0.0-10.0); HEMATOCRIT 29.1 % (37.0-47.0); HEMOGLOBIN 8.6 g/dL (12.0-16.0); IMM GRAN# 0.16 X1000 (0.0-0.04); IMM GRAN% 1.5 % (0.0-0.5); LYMPH# 2.49 X1000 (1.2-3.4); LYMPH% 23.1 % (20.5-51.1); MCH 28.9 PG (27-31); MCHC 29.6 g/dL (33-37); MCV 97.7 FL (81-99); MONO# 1.01 X1000 (0.11-0.59); MONO% 9.4 % (1.7-9.3); MPV 10.9 FL (7.4-10.4); NEUT# 7.07 X1000 (1.4-6.5); NEUT% 65.6 % (42.2-75.2); PLT 632 X1000 (130-400); RBC 2.98 XMIL (4.2-5.4); WBC 10.77 X1000 (4.8-10.8)
[2018-12-19] MEDS: HUMULIN R SUBQ SCH ×4 (06:18→21:13)
[2018-12-19] MEDS: PROTONIX PO SCH (06:19)
[2018-12-19 06:58] LABS: AGAP 14; BUN 4 mg/dL (8-22); CALCIUM 8.5 mg/dL (8.8-10.2); CHLORIDE 105 mmol/L (98-107); COSMO 283; CREATININE 0.6 mg/dL (0.5-0.9); ESTIMATED GFR > 60; GLUCOSE 93 mg/dL (70-104); POTASSIUM 4.1 mmol/L (3.5-5.1); SODIUM 144 mmol/L (136-145); TCO2 25 mmol/L (25-35); TOTAL BILIRUBIN 0.27 mg/dL (0.20-1.00); TOTAL PROTEIN 5.3 g/dL (6.3-8.3)
[2018-12-19 06:59] LABS: ALB/GLOB RATIO 1.5; ALBUMIN 3.2 g/dL (3.5-5.0); ALKALINE PHOSPHATASE 110 U/L (32-104); GOT 27 U/L (10-30); GPT 21 U/L (10-36)
[2018-12-19 07:20] LABS: HEMOGLOBIN A1C 5.7 % (4.8-6.0)
--- NOTE | 2018-12-19 07:31 | GENERAL SURGERY PROGRESS NOTE ---
DATE: 12/19/2018 SUBJECTIVE: The patient seems to be feeling a little bit better. She is a little less nauseated. OBJECTIVE: Vital Signs: The patient is currently afebrile. Her vital signs are stable. General Examination: No acute distress. Cardiovascular: Regular rate and rhythm. Lungs: Grossly clear. Abdomen: Soft. Ostomy appears viable with output noted in it. Laboratory: White blood cell count is down to 10, hematocrit 29. ASSESSMENT/PLAN: A 68-year-old female status post abdominoperineal resection. At this time, she has had some return of bowel function but I still think she has an underlying ileus. She seems to be tolerating her diet. Her white blood cell count has decreased and so I do not think we need to do any more extensive workup at this time. We will continue to monitor her. cc: MD Leigh Ann Shukla MD
[2018-12-19] MEDS: DUONEB (A & A) INH PRN ×3 (08:04→15:59)
[2018-12-19] MEDS: ROCEPHIN 1 GM in NS 50 ML IV SCH (08:11)
[2018-12-19] MEDS: LASIX PO SCH (08:11)
[2018-12-19] MEDS: VALTREX PO SCH ×2 (08:11→20:16)
[2018-12-19] MEDS: ICAR-C PO SCH ×2 (08:11→20:16)
[2018-12-19] MEDS: LOVENOX SUBQ SCH (08:12)
[2018-12-19] MEDS: LIORESAL PO SCH ×3 (08:12→17:39)
[2018-12-19] MEDS: SINGULAIR PO SCH (08:12)
[2018-12-19] MEDS: MAG-OX PO SCH (08:12)
[2018-12-19] MEDS: PRAVACHOL PO SCH (08:12)
[2018-12-19] MEDS: PERIDEX MT SCH ×2 (08:13→20:16)
[2018-12-19] MEDS: MIRALAX PO SCH ×2 (08:13→20:16)
[2018-12-19] MEDS: ASPIRIN EC PO SCH (08:22)
[2018-12-19] MEDS: TAPAZOLE PO SCH (17:39)
--- NOTE | 2018-12-19 18:31 | PROGRESS NOTE ---
DATE: 12/19/2018 SUBJECTIVE: The patient is resting comfortably. She feels better today. She has no new lesions on her right leg. OBJECTIVE: Vital Signs: Temperature 99.1 degrees, blood pressure 100/52, heart rate 102, respirations 18, O2 saturation is 100% on 2 L nasal cannula. General: This is a chronically ill- appearing elderly female lying in bed in no acute distress. Heart: S1, S2 normal. Tachycardic. Lungs: Clear to auscultation bilaterally. No wheezing. No rales. No rhonchi. Abdomen: Positive bowel sounds. Soft, nontender, nondistended. Extremities: No edema. No cyanosis. The vesicles on the right lower extremity appear to be drying up. Neurologic: The patient is alert and oriented x4. LABS: White blood cell count 10, hemoglobin 8.6, hematocrit 29, platelets 632,000. Sodium 144, potassium 4.1, chloride 105, CO2 25, BUN 4, creatinine 0.6, glucose 93. AST 27, ALT 21, alkaline phosphatase 110, albumin 3.2. ASSESSMENT AND PLAN: 1. Chronic hypoxemic respiratory failure. Stable. Continue with supplemental oxygen and bronchodilator therapy. 2. Shingles. Continue on Valtrex. Today is day 2 of treatment. 3. Status post robot-assisted laparoscopic abdominoperineal resection. Stable. 4. Iron deficiency anemia. Continue with iron supplementation. 5. Anxiety disorder. Continue on Ativan as needed. 6. Diabetes mellitus type 2. Continue on sliding scale insulin. 7. Hyperthyroidism. Continue on Tapazole. 8. Deep vein thrombosis prophylaxis. Continue on Lovenox. DISPOSITION: The patient will be discharged to rehab once cleared by the general surgeon. cc: Leigh Ann Quijano MD [facility]
[2018-12-20] MEDS: ZOFRAN IV PRN ×4 (01:40→21:41)
[2018-12-20] MEDS: NORCO-10 PO PRN ×4 (01:40→21:40)
[2018-12-20] MEDS: FLAGYL 500 MG/NS 500 MG/100 ML IVPB IV SCH ×4 (02:26→20:22)
[2018-12-20 06:07] LABS: BASO# 0.03 X1000 (0.0-0.2); BASO% 0.3 % (0.0-0.8); HEMATOCRIT 27.9 % (37.0-47.0); HEMOGLOBIN 8.2 g/dL (12.0-16.0); IMM GRAN# 0.14 X1000 (0.0-0.04); IMM GRAN% 1.6 % (0.0-0.5); LYMPH# 2.06 X1000 (1.2-3.4); LYMPH% 23.5 % (20.5-51.1); MCH 28.9 PG (27-31); MCHC 29.4 g/dL (33-37); MCV 98.2 FL (81-99); MONO# 0.87 X1000 (0.11-0.59); MONO% 9.9 % (1.7-9.3); NEUT# 5.67 X1000 (1.4-6.5); NEUT% 64.7 % (42.2-75.2); PLT 535 X1000 (130-400); RBC 2.84 XMIL (4.2-5.4); RDW 16.5 % (11.5-14.5); WBC 8.77 X1000 (4.8-10.8)
[2018-12-20] MEDS: HUMULIN R SUBQ SCH ×4 (06:26→20:22)
[2018-12-20] MEDS: PROTONIX PO SCH (06:44)
[2018-12-20] MEDS: VALTREX PO SCH ×2 (09:00→20:21)
[2018-12-20] MEDS: MIRALAX PO SCH ×2 (09:00→20:21)
[2018-12-20] MEDS: PERIDEX MT SCH ×2 (09:00→20:22)
[2018-12-20] MEDS: LASIX PO SCH (09:00)
[2018-12-20] MEDS: LOVENOX SUBQ SCH (09:00)
[2018-12-20] MEDS: TAPAZOLE PO SCH (09:01)
[2018-12-20] MEDS: ASPIRIN EC PO SCH (09:01)
[2018-12-20] MEDS: ICAR-C PO SCH ×2 (09:01→20:21)
[2018-12-20] MEDS: SINGULAIR PO SCH (09:01)
[2018-12-20] MEDS: PRAVACHOL PO SCH (09:02)
[2018-12-20] MEDS: MAG-OX PO SCH (09:02)
[2018-12-20] MEDS: LIORESAL PO SCH ×3 (09:02→17:21)
[2018-12-20] MEDS: ROCEPHIN 1 GM in NS 50 ML IV SCH (09:02)
--- NOTE | 2018-12-20 13:23 | GENERAL SURGERY PROGRESS NOTE ---
DATE: 12/20/2018 SUBJECTIVE: Her ostomy continues to work. Her abdomen feels well. She is tolerating a diet. She is ambulating. Strength is improving. She remains on nasal cannula 2 L, but this has been stable. OBJECTIVE: Vital Signs: No fevers, pulse 97, blood pressure 134/49. Abdomen: Her perineal and her abdominal incisions are intact without evidence of infection. Her ostomy is pink viable with stool in the bag. LABORATORY DATA: White count is 8, hematocrit 27, glucose 111. ASSESSMENT/PLAN: A 68-year-old female status post abdominoperineal resection. She is doing well. From a surgical perspective, it would be reasonable for her to go rehab. Will touch base with the hospitalist. They are treating shingles outbreak on the right calf with Valtrex. cc: MD Leigh Ann Sorensen MD
--- NOTE | 2018-12-20 17:48 | PROGRESS NOTE ---
DATE: 12/20/2018 SUBJECTIVE: The patient states that she feels good today. The lesions on her right leg are starting to dry up. OBJECTIVE: Vital Signs: Temperature 97.8 degrees, blood pressure 142/45, heart rate 108, respirations 22, O2 saturation is 100% on 2 L nasal cannula. General: This is a chronically ill- appearing, elderly female lying in bed, in no acute distress. Heart: S1, S2 normal. Tachycardic. Lungs: Equal air entry bilaterally. No wheezing. No rales. No rhonchi. Abdomen: Positive bowel sounds. Soft, nontender, nondistended. Extremities: No edema. No cyanosis. No calf tenderness. Neurologic: The patient is alert and oriented x4. LABS: White blood cell count 8.7, hemoglobin 8.2, hematocrit 27, platelets 535,000. ASSESSMENT AND PLAN: 1. Chronic hypoxemic respiratory failure. Stable. 2. Shingles. Continue on Valtrex. Today is day 3 of treatment. 3. Status post robot-assisted laparoscopic abdominoperineal resection. Stable. 4. Iron deficiency anemia. The hemoglobin and hematocrit are trending downward. We will continue with iron supplementation. Transfuse p.r.n. 5. Anxiety disorder. Continue on Ativan as needed. 6. Hyperthyroidism. Continue on Tapazole. 7. Deep vein thrombosis prophylaxis. Continue on Lovenox. 8. Disposition. The patient is stable for discharge to rehab at [facility]. However, she will need a private room, so once a private room is available, the patient can be transferred to rehab. cc: Leigh Ann Quijano MD
[2018-12-20] MEDS: COREG PO SCH (20:21)
[2018-12-21] MEDS: FLAGYL 500 MG/NS 500 MG/100 ML IVPB IV SCH ×4 (05:28→23:47)
[2018-12-21] MEDS: NORCO-10 PO PRN ×3 (05:38→19:42)
[2018-12-21] MEDS: ZOFRAN IV PRN ×3 (05:39→19:43)
[2018-12-21] MEDS: PROTONIX PO SCH ×2 (05:39→06:09)
[2018-12-21 06:02] LABS: AGAP 8; BUN 3 mg/dL (8-22); CALCIUM 7.8 mg/dL (8.8-10.2); CHLORIDE 104 mmol/L (98-107); COSMO 273; CREATININE 0.6 mg/dL (0.5-0.9); ESTIMATED GFR > 60; GLUCOSE 109 mg/dL (70-104); POTASSIUM 3.7 mmol/L (3.5-5.1); SODIUM 138 mmol/L (136-145); TCO2 26 mmol/L (25-35)
[2018-12-21] MEDS: HUMULIN R SUBQ SCH ×4 (06:11→20:34)
[2018-12-21 06:15] LABS: BASO# 0.02 X1000 (0.0-0.2); BASO% 0.2 % (0.0-0.8); EOS# 0.02 X1000 (0.0-0.7); EOS% 0.2 % (0.0-10.0); HEMATOCRIT 28.2 % (37.0-47.0); HEMOGLOBIN 8.2 g/dL (12.0-16.0); IMM GRAN% 1.2 % (0.0-0.5); LYMPH# 2.13 X1000 (1.2-3.4); LYMPH% 24.6 % (20.5-51.1); MCH 28.3 PG (27-31); MCHC 29.1 g/dL (33-37); MCV 97.2 FL (81-99); MONO# 0.99 X1000 (0.11-0.59); MONO% 11.4 % (1.7-9.3); MPV 11.1 FL (7.4-10.4); NEUT% 62.4 % (42.2-75.2); PLT 536 X1000 (130-400); RDW 16.8 % (11.5-14.5); WBC 8.66 X1000 (4.8-10.8)
[2018-12-21] MEDS: LASIX PO SCH (10:07)
[2018-12-21] MEDS: MIRALAX PO SCH ×2 (10:07→20:33)
[2018-12-21] MEDS: PERIDEX MT SCH ×2 (10:07→20:33)
[2018-12-21] MEDS: COREG PO SCH ×2 (10:08→20:33)
[2018-12-21] MEDS: ICAR-C PO SCH ×2 (10:08→20:33)
[2018-12-21] MEDS: LIORESAL PO SCH ×3 (10:08→18:00)
[2018-12-21] MEDS: SINGULAIR PO SCH (10:08)
[2018-12-21] MEDS: VALTREX PO SCH ×2 (10:09→20:33)
[2018-12-21] MEDS: MAG-OX PO SCH (10:09)
[2018-12-21] MEDS: PRAVACHOL PO SCH (10:09)
[2018-12-21] MEDS: LOVENOX SUBQ SCH (10:09)
[2018-12-21] MEDS: ASPIRIN EC PO SCH (10:10)
[2018-12-21] MEDS: ROCEPHIN 1 GM in NS 50 ML IV SCH (10:10)
[2018-12-21] MEDS: ATIVAN PO PRN ×2 (12:05→20:33)
[2018-12-21] MEDS ORDERED: BENADRYL PO PRN (16:58)
--- NOTE | 2018-12-21 17:14 | PROGRESS NOTE ---
DATE: 12/21/2018 SUBJECTIVE: Ms. Suarez feels better. Eating her supper. Colostomy with good output. No leaking. She did ask for some Benadryl to help with the runny nose. OBJECTIVE: Vital signs: She remains afebrile, temperature 98.0 degrees, pulse 99, respirations 20, blood pressure 140/49. HEENT: Pupils are equal and round. Lungs: Clear in all lung ordonez. Cardiovascular: Regular rhythm and rate without murmur or S3. Abdomen: Soft. Skin: Warm and dry. Urine output is 2600 mL. ASSESSMENT AND PLAN: 1. Chronic hypoxemic respiratory failure. Marked improvement. Good air and gas exchange. On nasal cannula, breathing comfortably. 2. Shingles on the right leg. She is on Valtrex. This is day 4 of treatment. 3. Status post robotic-assisted laparoscopic abdominoperineal resection. She is doing better. Has colostomy. Good bowel output. 4. Iron deficiency anemia. Hemoglobin and hematocrit are trending downward. Continues iron supplement. Transfuse as needed. 5. Anxiety disorder. On Ativan as needed. 6. Hyperthyroidism. She is on Tapazole. 7. Deep venous thrombosis prophylaxis. On Lovenox. 8. Disposition. Hoping to discharge to rehab when bed available. Continue current treatment. We will let her have some Benadryl as needed. cc: Flex Littlejohn MD
[2018-12-21] MEDS: TAPAZOLE PO SCH (18:00)
--- NOTE | 2018-12-21 19:31 | GENERAL SURGERY PROGRESS NOTE ---
DATE: 12/21/2018 SUBJECTIVE: Doing okay. She is resting comfortably this morning. Ostomy continues to function. No events overnight. No fevers. Low-grade tachycardia at 101. She has overall been stable. OBJECTIVE: Vital signs: Blood pressure 112/59. General: She is sleeping comfortably in no acute distress. Labs: White count is 8, hematocrit is 28, creatinine is 0.6. ASSESSMENT AND PLAN: A 68-year-old female status post aortic valve replacement. She is doing well. She was planning for rehab, but given her shingles, they want this to resolve before accepting her in rehab. As such, she will remain inpatient. We will continue ostomy teaching, ambulation, physical therapy, nutritional support. cc: MD Flex Sorensen MD
[2018-12-22] MEDS: FLAGYL 500 MG/NS 500 MG/100 ML IVPB IV SCH ×4 (04:49→22:57)
[2018-12-22] MEDS: PROTONIX PO SCH (06:08)
[2018-12-22] MEDS: HUMULIN R SUBQ SCH ×3 (06:08→16:10)
[2018-12-22] MEDS: PERIDEX MT SCH ×2 (08:37→21:08)
[2018-12-22] MEDS: ZOFRAN IV PRN ×3 (08:37→21:08)
[2018-12-22] MEDS: VALTREX PO SCH ×2 (08:37→21:07)
[2018-12-22] MEDS: PRAVACHOL PO SCH (08:38)
[2018-12-22] MEDS: NORCO-10 PO PRN ×3 (08:38→21:07)
[2018-12-22] MEDS: TAPAZOLE PO SCH (08:38)
[2018-12-22] MEDS: LASIX PO SCH (08:38)
[2018-12-22] MEDS: ICAR-C PO SCH ×2 (08:38→21:08)
[2018-12-22] MEDS: ROCEPHIN 1 GM in NS 50 ML IV SCH (08:39)
[2018-12-22] MEDS: LIORESAL PO SCH ×3 (08:39→16:58)
[2018-12-22] MEDS: ASPIRIN EC PO SCH (08:39)
[2018-12-22] MEDS: COREG PO SCH ×2 (08:39→21:08)
[2018-12-22] MEDS: LOVENOX SUBQ SCH (08:39)
[2018-12-22] MEDS: SINGULAIR PO SCH (08:39)
[2018-12-22] MEDS: MAG-OX PO SCH (08:39)
--- NOTE | 2018-12-22 09:16 | PROGRESS NOTE ---
DATE: 12/22/2018 SUBJECTIVE: Ms. Suarez is feeling much better. She was eating breakfast. She said her colostomy bag had a little leak but otherwise that the site looks good. The skin looks good and good colostomy output. OBJECTIVE: Temperature is 98.2 degrees, pulse 122, respirations 22, blood pressure 119/64. Lungs are clear in all lung ordonez. Cardiovascular Examination: Regular rhythm and rate without murmur or S3. Abdomen is soft. Skin is warm and dry. ASSESSMENT AND PLAN: 1. Chronic hypoxemic respiratory failure. She has got good air and gas exchange at the present time, breathing comfortably. 2. Shingles on the right leg. She is on Valtrex. This is day 5 of treatment. 3. Status post robotic-assisted laparoscopic abdominoperineal resection. She is doing much better. Good colostomy output. 4. Iron deficiency anemia. Continue iron supplement. Continue to watch her hematocrit and hemoglobin. 5. Anxiety disorder. Using Ativan as needed. 6. Hypothyroidism, on Tapazole. 7. Deep venous thrombosis prophylaxis, on Lovenox. 8. Disposition. Hoping to get her to rehab. Await to see. cc: Flex Littlejohn MD
[2018-12-22] MEDS: ULTRAM PO PRN (11:45)
[2018-12-22] MEDS: MIRALAX PO SCH ×2 (11:46→21:08)
[2018-12-23] MEDS: HUMULIN R SUBQ SCH ×3 (02:59→11:15)
[2018-12-23] MEDS: NORCO-10 PO PRN ×3 (03:14→16:17)
[2018-12-23] MEDS: ZOFRAN IV PRN ×3 (03:14→16:17)
--- NOTE | 2018-12-23 05:41 | GENERAL SURGERY PROGRESS NOTE ---
DATE: 12/22/2018 SUBJECTIVE: Doing well. No pain at the site of her shingles. Fevers low-grade. Tachycardia has been stable for her. She is moving about the room better. Her ostomy is functioning. She is tolerating a diet. Her pain is controlled. LABORATORY: I reviewed her labs. OBJECTIVE: On exam, her incision is well healed. I removed the constance. Her ostomy is pink and viable. There is some slough mucosa that I have trimmed with suture scissors to help facilitate pouching. Skin is healthy. ASSESSMENT AND PLAN: A 68-year-old female awaiting rehab upon resolution of her shingles outbreak. She is doing well. Dr. Justice is going to follow the patient while I am out of town for the next 24 hours. Otherwise, I think she is doing well. We will continue physical therapy and pulmonary toileting. She is on appropriate medications. cc: MD Flex Sorensen MD
[2018-12-23] MEDS: FLAGYL 500 MG/NS 500 MG/100 ML IVPB IV SCH ×2 (05:56→11:15)
[2018-12-23] MEDS: PROTONIX PO SCH (06:00)
[2018-12-23] MEDS: ROCEPHIN 1 GM in NS 50 ML IV SCH (09:23)
[2018-12-23] MEDS: MAG-OX PO SCH (09:23)
[2018-12-23] MEDS: LOVENOX SUBQ SCH (09:23)
[2018-12-23] MEDS: PERIDEX MT SCH (09:23)
[2018-12-23] MEDS: MIRALAX PO SCH (09:23)
[2018-12-23] MEDS: COREG PO SCH (09:24)
[2018-12-23] MEDS: VALTREX PO SCH (09:24)
[2018-12-23] MEDS: ASPIRIN EC PO SCH (09:24)
[2018-12-23] MEDS: ICAR-C PO SCH (09:24)
[2018-12-23] MEDS: LASIX PO SCH (09:24)
[2018-12-23] MEDS: PRAVACHOL PO SCH (09:24)
[2018-12-23] MEDS: LIORESAL PO SCH ×2 (09:24→12:22)
[2018-12-23] MEDS: SINGULAIR PO SCH (09:24)
--- NOTE | 2018-12-23 14:10 | DISCHARGE SUMMARY ---
ADMISSION DATE: 12/03/2018 DISCHARGE DATE: 12/23/2018 HISTORY OF PRESENT ILLNESS: A patient of Dr. Irma Smith. This is a 68-year-old admitted for surgery. She has a past medical history of peripheral vascular disease, hypertension, hyperlipidemia, COPD. She has been taking medication for hyperthyroidism. History of CABG, bypass due to coronary artery disease back in December 2015 with 4 vessel bypass. History of dyslipidemia, congestive heart failure, gastroesophageal reflux disease, and a recent diagnosis of rectal cancer. Followed by Dr. Legih Young for oncology. HOSPITAL COURSE: She came in, had robotic-assisted laparoscopic abdominoperitoneal resection per Dr. Ori Serrano. There was a rectal polyp. 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 No evidence of metastatic disease. It looks like she tolerated the procedure well and was moved to the PVC unit. She was followed by surgery. She has a colostomy bag and she had an ileus, postop ileus which was slow. Continued to get slowly return to get function. Worked on colostomy output which was slow but eventually it recovered. She had a repeat abdominal and pelvic CT on 12/14/2018. There were a couple small presacral fluid collections but otherwise nothing specific. She improved her strength. Physical therapy was involved. Was advanced to a regular diet and felt she was ready go to rehab on 12/23/2018. DISCHARGE MEDICATIONS: She will be on DuoNebs as needed, aspirin 81 mg a day, Lioresal which is baclofen 10 mg t.i.d., Coreg 6.25 mg q.12 hours, Lasix 40 mg p.o. daily, Benadryl as needed for itching, Capay 10s one q.6 hours p.r.n. pain (I will give her 20 of those), iron plus vitamin C or Icar 1 twice a day, Ativan 0.5 mg t.i.d. p.r.n. (I gave her a prescription for that), magnesium oxide 400 mg p.o. once a day, Tapazole 10 mg p.o. Mondays, Wednesdays, and Fridays and then 5 mg on Sundays, Tuesdays, , and Saturdays. We will stop her Flagyl. She was getting 500 mg IV q.6. Continue Singulair 10 mg daily, Protonix 40 mg p.o. daily, MiraLAX 17 g twice a day, Pravachol 20 mg a day. I will give her the Ultram 50 mg p.o. q.6 hours p.r.n. pain and she is on Valtrex 1000 mg p.o. b.i.d. Actually, she developed some shingles on her right leg so she has not been on Valtrex until this admission. She had herpetic shingles which is drying and clearing. We will continue the Valtrex another 5 days and then she can stop that. cc: Flex Littlejohn MD
[2018-12-23 16:38] VITALS: BP 123/46
== END 2018-12-23 17:35 | DRG 330 ==
LOC: SURHOLD 07:55 → 2N 14:55 → 3N 12-21 08:51
PROVIDERS: ADMIT Emergency Medicine; ATTEND Surgery

== ENCOUNTER 2018-12-31 08:31 | Inpatient (IN) ==
[2018-12-31] MEDS ORDERED: NS 500 ML IV ONE (09:03)
[2018-12-31] MEDS ORDERED: FLAGYL 500 MG/NS 500 MG/100 ML IVPB IV ONE (09:03)
[2018-12-31] MEDS ORDERED: ZOSYN 4.5 GM in NS 100 ML IV ONE (09:03)
[2018-12-31] MEDS ORDERED: MORPHINE IV ONE (09:03)
[2018-12-31] MEDS ORDERED: NS 1,000 ML IV ONE ×2 (09:03)
[2018-12-31] MEDS ORDERED: ZOFRAN IV ONE (09:03)
[2018-12-31] MEDS ORDERED: VANCOMYCIN 1 GM/NS 1 GM/250 ML IVPB IV ONE (09:03)
--- NOTE | 2018-12-31 09:07 | PROVIDER DOCUMENTATION ---
HPI-Abdominal Pain/GI Problem - General Chief Complaint: SEPSIS ALERT - D Stated Complaint: POST OP Time Seen by Provider: 12/31/18 08:57 Source: patient, family, EMS, old records Allergies/Adverse Reactions: Patient Allergies Allergy/AdvReac Type Severity Reaction Status Date / Time No Known Allergies Allergy Verified 12/31/18 09:20 Home Medications: Home Medication List Medication Instructions Recorded Confirmed Last Taken Type Clopidogrel Bisulfate [Plavix] 75 mg PO DAILY 12/12/14 12/31/18 11/04/18 History Albuterol 2.5MG/Ipratrop 0.5MG 3 ml INH Q6H PRN PRN #30 neb 10/24/15 12/31/18 12/02/18 Rx [Duoneb (A & A)] Baclofen 10 mg PO TID 10/24/15 12/31/18 12/02/18 History Montelukast Sodium 10 mg PO DAILY 10/24/15 12/31/18 12/02/18 History Aspirin [Aspir-Low] 81 mg PO DAILY 02/25/16 12/31/18 11/04/18 History LISINOpril [Prinivil] 5 mg PO DAILY 02/25/16 12/31/18 12/02/18 History Diphenhydramine [Benadryl] 25 mg PO Q4-6H PRN 10/05/18 12/31/18 12/02/18 History PRAVAstatin [Pravachol] 20 mg PO DAILY 10/05/18 12/31/18 12/02/18 History Acetaminophen [Tylenol] 650 mg PO Q4H PRN PRN tab 12/23/18 12/31/18 Unknown Rx Carvedilol [Coreg] 6.25 mg PO Q12H tab 12/23/18 12/31/18 Unknown Rx Furosemide [Lasix] 40 mg PO DAILY tab 12/23/18 12/31/18 Unknown Rx Hydrocodone/APAP 10 mg/325 mg 1 ea PO Q6H PRN PRN 10 Days #20 tab 12/23/18 12/31/18 Unknown Rx [Orleans-10] Iron Carbonyl/Ascorbic Acid 1 ea PO BID tab 12/23/18 12/31/18 Unknown Rx [Icar-C] Lorazepam [Ativan] 0.5 mg PO TID PRN PRN 20 Days #60 12/23/18 12/31/18 Unknown Rx tab Magnesium Oxide [Mag-Ox] 400 mg PO DAILY tab 12/23/18 12/31/18 Unknown Rx Methimazole [Tapazole] 5 mg PO SUTUTHSA tab 12/23/18 12/31/18 Unknown Rx Methimazole [Tapazole] 10 mg PO MOWEFR tab 12/23/18 12/31/18 Unknown Rx Polyethylene Glycol 3350 [Miralax] 17 gm PO BID powder, packet 12/23/18 12/31/18 Unknown Rx Tramadol [Ultram] 50 mg PO Q6H PRN PRN 20 Days #40 12/23/18 12/31/18 Unknown Rx tab - History of Present Illness-ABD Nature of Presenting Problems: Patient had a robotic APR surgery a couple of weeks ago, and had a resultant ileostomy, was doing well in rehab up until this morning. She noted some lower abdominal pain and pressure/chills/body aches. When the therapist came to get her up out of bed, her incision opened up and a large amount of thick, chocolate colored, malodorous material poured out of wound. Dr. Serrano was her surgeon and Dr. Freeman Smith her PCP. Abdominal Pain Onset Location: reports: suprapubic Pain Radiation: reports: no radiation Quality of Pain: reports: aching, burning, pressure Severity in ED: reports: moderate Onset/Duration: reports: this morning Timing: reports: still present, constant, changing over time Activities at Onset: reports: light activity Exposure to sick contacts?: No Modifying Factors: improves with: rest. worse with: movement, palpation Associated Symptoms: reports: malaise, muscle aches, nausea Last BM: this morning Dark Stools Present?: reports: other (green) Rectal Bleeding: reports: none Emesis Description: reports: none Bruising or Bleeding Gums?: No Similar Symptoms Previously?: No Recently seen or treated by another doctor?: Yes (as above) Review of Systems - Adult - REVIEW OF SYSTEMS - ADULT Constitutional: reports: no symptoms reported Eyes: reports: no symptoms reported Ears, Nose, Mouth & Throat: reports: no symptoms reported Cardiovascular: reports: no symptoms reported Respiratory: reports: no symptoms reported Gastrointestinal: reports: no symptoms reported Genitourinary: reports: no symptoms reported Musculoskeletal: reports: no symptoms reported Integumentary: reports: no symptoms reported Neurological: reports: no symptoms reported Psychiatric: reports: no symptoms reported Endocrine: reports: no symptoms reported Hematologic/Lymphatic: reports: no symptoms reported Allergic/Immunologic: reports: no symptoms reported All Other Systems: Reviewed and Negative Past History - Adult - PAST MEDICAL HISTORY-ADULT Review of Records: reports: Old Records Reviewed, Nursing Assessment Review, Medications Reviewed, Social history reviewed & non-contributory. Major Childhood Illnesses: reports: denies history Cardiovascular: reports: cardiac disease, CAD, CHF, SD Respiratory: reports: COPD Gastrointestinal: reports: denies history Obstetrical/Gynecological: reports: denies history Genitourinary: reports: denies history Musculoskeletal: reports: denies history Neurological: reports: other (migraine) Endocrine/Immune: reports: denies history Other Conditions: reports: denies history - PRIOR SURGERIES/PROCEDURES Surgical/Procedure History: reports: other (abdominal perineal resection, robot assisted [address] Serr[address] tubal ligation, shoulder) - IMMUNIZATION STATUS Childhood Immunizations: See Nurse Assessment Flu Vaccine: See Nurse Assessment - FAMILY HISTORY Family History: reviewed, not pertinent - SOCIAL HISTORY Smoking: non-smoker Substance Use: none/never Alcohol Use Frequency: rarely Living Situation: family Physical Exam-General - PHYSICAL EXAM-ADULT Initial Vital Signs Reviewed: Yes - CONSTITUTIONAL General Appearance: alert, mild distress, obese, anxious - EYES Eyes: PERRL/EOMI, pink conjunctivae - HEAD, EARS, NOSE, MOUTH & THROAT HENMT: normocephalic/atraumatic. negative: moist mucous membranes - NECK Neck: non-tender, full range of motion, supple, normal inspection - RESPIRATORY Respiratory: chest non-tender, lungs clear, normal breath sounds, no pleuratic chest pain, no respiratory distress, no accessory muscle use - CARDIOVASCULAR Cardiovascular: normal peripheral pulses, regular rate, rhythm, no edema, no gallop, no JVD, no murmur, tachycardia - GASTROINTESTINAL (ABDOMEN) Abdominal Exam: soft, no organomegaly, no pulsatile mass, distended, tenderness (lower abdomen), other (left ileostomy with large amount of gas. Midline lower abdominal incision with 3cm area of dehsicence and a very large amount of thick, chocolate colored malodorous material pouring from wound.) - LYMPHATIC Lymphatic: no adenopathy - MUSCULOSKELETAL Back Exam: normal inspection. negative: decreased range of motion Extremity: normal range of motion, non-tender, no calf tenderness, normal capillary refill, pedal edema, other (gait not tested) - SKIN Integumentary: normal color, normal turgor, warm/dry - NEUROLOGIC Neurologic: still operator helper II-XII nml as tested, grossly normal, no motor/sensory deficits - PSYCHIATRIC Psych/Mental Status: normal mood/affect, normal thought content, normal thought process, oriented x 3 Progress - PLAN OF CARE/RESULTS Progress/Plan/Lab Results: Vital Signs - 8 hr 12/31/18 08:49 Temperature 98.3 F Pulse Rate 116 H Respiratory Rate 24 Blood Pressure 103/63 O2 Sat by Pulse Oximetry 99 Orders Category Date Time Status Cardiac Monitoring DIRECTED Care 12/31/18 09:02 Active IV Insertion ORDERED Care 12/31/18 09:02 Active Notify MD of + Sepsis Screen NOW Care 12/31/18 09:02 Active Notify Physician As Ordered Care 12/31/18 09:02 Active NPO Diet 12/31/18 09:04 Active CHEST-1 VIEW [RAD] Stat Exams 12/31/18 09:[address] ABD/PELVIS W/IV CONT ONLY [CT] Stat Exams 12/31/18 09:04 Ordered ABG [RESP] Routine Lab 12/31/18 09:02 Ordered BLOOD CULTURE [BLDCUL] Stat Lab 12/31/18 09:02 Uncollected CBC WITH DIFF [HEME] Stat Lab 12/31/18 09:02 Uncollected CK PROFILE [SP CHEM] Stat Lab 12/31/18 09:02 Uncollected COMPREHENSIVE METABOLIC PANEL [CHEM] Stat Lab 12/31/18 09:02 Uncollected LACTATE, PLASMA [CHEM] Q3H Lab 12/31/18 09:15 Uncollected LACTATE, PLASMA [CHEM] Q3H Lab 12/31/18 12:15 Uncollected LACTATE, PLASMA [CHEM] Q3H Lab 12/31/18 15:15 Uncollected MAGNESIUM [CHEM] Stat Lab 12/31/18 09:02 Uncollected PROTIME WITH INR [COAG] Stat Lab 12/31/18 09:02 Uncollected PTT [COAG] Stat Lab 12/31/18 09:02 Uncollected ROUTINE CULTURE [RM] Stat Lab 12/31/18 09:02 Uncollected TROPONIN T Stat Lab 12/31/18 09:02 Uncollected TYPE & SCREEN [BBK] Stat Lab 12/31/18 09:02 Uncollected URINALYSIS W/POSS RFLX CULT [URINALYSIS] Stat Lab 12/31/18 09:02 Uncollected 0.9% Sodium Chloride Inj [Ns] 1,000 ml Med 12/31/18 09:03 Active IV 999 mls/hr 0.9% Sodium Chloride Inj [Ns] 1,000 ml Med 12/31/18 09:03 Active IV 999 mls/hr 0.9% Sodium Chloride Inj [Ns] 500 ml Med 12/31/18 09:03 Active IV 999 mls/hr Metronidazole 500 mg/Ns [Flagyl 500 mg/Ns] Med 12/31/18 09:03 Active 500 mg in 100 ml IV NOW Morphine Med 12/31/18 09:03 Discontinued 4 mg IV NOW ONE Ondansetron [Zofran] Med 12/31/18 09:03 Discontinued 4 mg IV NOW ONE Piperacillin/Tazobactam [Zosyn] 4.5 gm Med 12/31/18 09:03 Active 0.9% Sodium Chloride Inj [Ns] 100 ml IV NOW Vancomycin 1 gm/Ns Med 12/31/18 09:03 Active 1 gm in 250 ml IV NOW Oxygen Device Stat Oth 12/31/18 09:02 Active Result Diagrams: 12/31/18 09:22 12/31/18 09:22 - REASSESSMENT Reassessment #1 Time Reassessed: 10:56 Status: improving (Better after IVF bolus, Morphine/zofran. Given IV Vanco/Zosyn/Flagyl) - XRAY 1 XRAY Study: Chest Impression: Normal, See EMR Report ( CHEST-1 VIEW - 12/31/2018 INDICATION: sepsis COMPARISON: 12/17/2018 FINDINGS: Stable sternotomy changes. Stable s cattered linear atelectasis or scarring. Heart size and pulmonary vascularity is top normal. No infiltrates or edema. IMPRESSION: No acute disease or change from prior. Electronically signed by Alfredo Elizalde 12/31/2018 9:19 AM 12/31/18918 Interpreting Physician: Alfredo Elizalde MD Dictated Date/Time: 12/31/18918 cc: Ap Ladd MD; Irma Smith MD) - CT/MRI 1 CT Study: Abdomen (pending at admission at 1057) Impression: Abnormal, See EMR Report - CONSULTS/PCP/HOSPITALIST Notification #1 *Consult/PCP/Hospitalist*: Maggie surgeon Time Discussed: 09:06 (Get a CT, get hospitalist to admit, he'll see between cases.) Consult Disposition: Will see in ED #2 Consult: SILVERIO Tavarez Time Discussed: 10:54 Consult Disposition: Will see in ED, Admit Departure - Departure Date of Disposition Decision: 12/31/18 Time of Disposition Decision: 10:54 DIAGNOSIS: Entero-enteric fistula Sepsis without acute organ dysfunction Qualifiers: Sepsis type: Escherichia coli Qualified Code(s): A41.51 - Sepsis due to Escherichia coli [E. coli] Abdominal pain Qualifiers: Abdominal location: generalized Qualified Code(s): R10.84 - Generalized abdominal pain Wound dehiscence, surgical Qualifiers: Encounter type: initial encounter Qualified Code(s): T81.31XA - Disruption of external operation (surgical) wound, not elsewhere classified, initial encounter Disposition: ADMITTED INPATIENT 09 Certified Medical Emergency: Emergent Condition: Fair Referrals and Follow-Ups: Irma Smith MD [Primary Care Provider] - - Critical Care Note This patient required my direct & personal management of CC.: Yes Total Time (mins): 40 Critical Care Statement: This patient required my direct personal management to treat or rule out processes, the absence of which, could potentiallly result in sudden, clinically significant life or limb threatening deterioration. Attestation - Physician/ MARIA G Attestation Patient care was provided by Advanced Practice Provider:: No The physician spent face to face time with patient:: Yes Advanced Practice Provider documentation review:: Supervising physician onsite and consulted in the evaluation and care of this patient. The physician did have a face to face encounter with the patient.
--- NOTE | 2018-12-31 09:22 | Diag Imaging Result Doc PS360 ---
CHEST-1 VIEW - 12/31/2018 INDICATION: sepsis COMPARISON: 12/17/2018 FINDINGS: Stable sternotomy changes. Stable scattered linear atelectasis or scarring. Heart size and pulmonary vascularity is top normal. No infiltrates or edema. IMPRESSION: No acute disease or change from prior. Electronically signed by Alfredo Elizalde 12/31/2018 9:19 AM
[2018-12-31 09:36] LABS: ALLEN TEST YES; BE 4.4 mmoll (-3.0-3.0); BLOOD TYPE ARTERIAL; HCO3-(ACT) 28.4 mmoll (20.0-26.0); METHB 0.4 % (0.0-1.5); O2(CT) 13.2 mL/dL (15.0-23.0); PCO2(98.6) 39 mmHg (35-45); PO2(98.6) 85 mmHg (60-100); SAMPLE BLOOD; SAO2 98.4 % (95.0-100.0); THB 9.7 g/dL (11.5-17.4); pH(98.6) 7.47 (7.35-7.45)
[2018-12-31 09:37] LABS: MODALITY CANNULA
[2018-12-31 09:53] LABS: BASO# 0.02 X1000 (0.0-0.2); BASO% 0.1 % (0.0-0.8); HEMATOCRIT 31.5 % (37.0-47.0); HEMOGLOBIN 9.4 g/dL (12.0-16.0); IMM GRAN# 0.06 X1000 (0.0-0.04); IMM GRAN% 0.4 % (0.0-0.5); LYMPH# 1.39 X1000 (1.2-3.4); LYMPH% 8.7 % (20.5-51.1); MCHC 29.8 g/dL (33-37); MCV 97.2 FL (81-99); MONO# 2.08 X1000 (0.11-0.59); MPV 11.6 FL (7.4-10.4); NEUT# 12.39 X1000 (1.4-6.5); NEUT% 77.8 % (42.2-75.2); PLT 394 X1000 (130-400); RBC 3.24 XMIL (4.2-5.4); RDW 16.5 % (11.5-14.5); WBC 15.94 X1000 (4.8-10.8)
[2018-12-31 09:59] LABS: PROTIME 13.9 Seconds (11.0-16.0)
[2018-12-31 10:00] LABS: INR 1.05; PTT 36.3 Seconds (22.3-41.8)
[2018-12-31 10:36] LABS: AGAP 19; ALB/GLOB RATIO 1.2; ALBUMIN 3.2 g/dL (3.5-5.0); ALKALINE PHOSPHATASE 119 U/L (32-104); BUN 18 mg/dL (8-22); CHLORIDE 97 mmol/L (98-107); CK PROFILE 16 U/L (24-173); COSMO 285; CREATININE 0.7 mg/dL (0.5-0.9); ESTIMATED GFR > 60; GLUCOSE 103 mg/dL (70-104); GOT 51 U/L (10-30); GPT 32 U/L (10-36); POTASSIUM 4.5 mmol/L (3.5-5.1); SODIUM 142 mmol/L (136-145); TCO2 26 mmol/L (25-35); TOTAL BILIRUBIN 0.37 mg/dL (0.20-1.00); TOTAL PROTEIN 5.9 g/dL (6.3-8.3)
--- NOTE | 2018-12-31 11:52 | Diag Imaging Result Doc PS360 ---
CT ABD/PELVIS W/IV CONT ONLY - 12/31/2018 INDICATION: post-op sepsis/stool in lower abdomen COMPARISON: 12/14/2018 FINDINGS: At the lower midline laparotomy incision, in the superficial subcutaneous tissues, there is a new collection of primarily gas but also little bit of fluid. This collection measures about 3.3 x 6.5 x 7.4 cm in AP, lateral, and craniocaudal measurements. This extends down to the muscular wall and there is some inflammation of the anterior fascia. There is a left lower quadrant ostomy. This does not really appear to communicate with the subcutaneous process in the midline. There has been significant decrease in the inflammation and fluid in the presacral space. The fluid now measures about 12.4 x 2.8 cm. There has been resolution of the pleural effusions. There is overall decrease in the pulmonary edema in the lung bases. IMPRESSION: 1. New extremely superficial gas/fluid collection that is primarily gas in the region of the midline laparotomy incision. Its origin is unclear. This is nearby but does not appear to communicate with the left lower quadrant ostomy. 2. Other findings are improved. This exam was performed using automated exposure control, adjustment of mA or kV according to patient size, and/or use of iterative reconstruction technique Electronically signed by Alfredo Elizalde 12/31/2018 11:50 AM
[2018-12-31] MEDS ORDERED: VANCOMYCIN IV PER PHARMACY MISC SCH (12:34)
[2018-12-31] MEDS: NS 1,000 ML IV SCH ×2 (13:30→20:59)
[2018-12-31] MEDS ORDERED: VANCOMYCIN 1,600 MG in NS 250 ML IV ONE (14:00)
--- NOTE | 2018-12-31 16:19 | HISTORY AND PHYSICAL ---
PRIMARY CARE PROVIDER: Dr. Irma Smith GENERAL SURGEON: Dr. Ori Serrano CHIEF COMPLAINT: Incisional dehiscence with oozing. HISTORY OF PRESENT ILLNESS: Ms Suarez is a 68-year-old, female who carries a past medical history of coronary artery disease status post CABG, COPD, dyslipidemia, congestive heart failure, hyperthyroidism, obesity, and rectal cancer who has been followed by Dr. Serrano, Dr. Rice and Dr. Leigh Young. She had a robotic assisted laparoscopic abdominoperitoneal resection by Dr. Ori Serrano. She had a rectal polyp and invasive carcinoma at the base of the polyp, but no evidence of metastatic disease. She tolerated that procedure well and was discharged to rehab on December 23. She reports that she had been doing well with her rehab and went to a doctor's appointment yesterday. She was sitting up this morning in the bed, had taken 2 bites of eggs and she felt warm fluid going down her abdomen and she looked down to see what appeared to be some liquid bowel on her abdomen. The patient was brought to the ED where she was initiated on broad- spectrum antibiotics. She underwent a CT of the abdomen and pelvis that showed newly extremely superficial gas and fluid collection that is primary gas in the region of the midline laparotomy incision. This is not nearby, but does not appear to communicate with the left lower quadrant ostomy. Her chest x-ray showed no acute disease or change from prior. She is afebrile. She is tachycardic. She does have an elevated white count at 15. Negative plasma lactate. She does not have a septic appearance. However, we will go ahead and cover her with broad-spectrum antibiotics till she can be assessed by Dr. Ori Serrano for further evaluation and his recommendation. She currently has a pressure dressing over the dehiscence so that could not be fully assessed by myself. We will leave that in place until it can be addressed by Dr. Serrano. The patient is in no pain and vital signs are currently stable. PAST MEDICAL HISTORY: 1. Coronary artery disease status post CABG. 2. COPD. 3. Dyslipidemia. 4. Congestive heart failure. 5. Hypothyroidism. 6. Obesity. 7. Rectal cancer. PAST SURGICAL HISTORY: 1. Robotic assisted laparoscopic abdominoperitoneal resection by Dr. Ori Serrano. 2. CABG. 3. Tonsillectomy. 4. ROUTE JUMPER surgery with BTL. SOCIAL HISTORY: Former smoker. No alcohol. No illicit drugs. She is currently at [facility] in rehab. ALLERGIES: No known drug allergies. MEDICATIONS: Home medications are currently being compiled. PHYSICAL EXAMINATION: VITAL SIGNS: Temperature is 98.3 degrees, heart rate 116, respirations 24, blood pressure 103/63, O2 is 99% on room air. GENERAL: Ms. Suarez is a pleasant, 68-year-old, female who is lying on the stretcher in no acute distress. HEENT: Atraumatic, normocephalic. PERRL. Very poor dentition. CARDIOVASCULAR: S1, S2 appreciated. No murmurs, gallops, or rubs noted. RESPIRATORY: Lung sounds clear bilaterally. No rales, rhonchi, or wheezes. GI: Appears to be soft nontender. I was very easy with the palpitation. I did not uncover the dressing. I could not really assess bowel sounds through all of the pressure dressing lower. EXTREMITIES: Lower extremities negative for edema. NEUROLOGIC: No focal deficits noted. DIAGNOSTIC DATA: Chest x-ray: No acute disease or change from prior. Abdomen and pelvis CT showed new extremely superficial gas fluid collection as primary gas in the region of the midline laparotomy incision. Its origin is unclear. This is nearby, but does not appear to communicate with the left lower quadrant ostomy. LABORATORY DATA: White count 15, hemoglobin and hematocrit 9 and 31, platelet count is 394,000. Sodium 142, potassium 4.5, BUN 18, creatinine 0.7, blood glucose is 103, magnesium 3.0, AST 51, alkaline phosphatase 119, CK 16, albumin 3.2. Plasma lactate 1.2. ASSESSMENT AND PLAN: 1. Probable wound dehiscence. This will be evaluated by Dr. Ori Serrano. I will place her on broad-spectrum antibiotics and will await his evaluation and recommendations. 2. Chronic obstructive pulmonary disease. No exacerbation. We will continue with her home regimen. 3. History of coronary artery disease and heart failure without any chest pain or volume overload. We will continue her home regimen when verified. 4. Type 2 diabetes. Continue with fingerstick blood sugars and pattern blood glucose her sliding scale. 5. Dyslipidemia. 6. Hypothyroidism. 7. Obesity. 8. Rectal cancer status post robotic assisted laparoscopic abdominoperitoneal resection by Dr. Rehman. Dictated by SILVERIO Duvall for Gómez Lopez MD cc: MD Aramis Hebert MD Lindsay E. Smith, MD
[2018-12-31] MEDS: ZOSYN 3.375 GM in NS 50 ML IV SCH ×2 (17:57→22:26)
[2018-12-31 18:50] LABS: URINE SOURCE CLEAN CATCH
[2018-12-31 19:02] LABS: BILIRUBIN URINE NEGATIVE (NEGATIVE); BLOOD URINE NEGATIVE (NEGATIVE); COLOR YELLOW; GLUCOSE URINE NEGATIVE (NEGATIVE); KETONE URINE 40 mg/dL (NEGATIVE); LEUKOCYTES URINE NEGATIVE (NEGATIVE); NITRITE URINE NEGATIVE (NEGATIVE); PH URINE 6.5; PROTEIN URINE 50 mg/dL (NEGATIVE); TURBIDITY URINE CLEAR (CLEAR); UROBILINOGEN URINE NORMAL (NORMAL)
[2018-12-31 19:04] LABS: UR EPITHELIAL CELLS <10 /HPF (<10); URINE BACTERIA NEGATIVE /HPF; URINE RBC <10 /HPF (<10); URINE WBC <10 /HPF (<10)
[2018-12-31 20:23] LABS: SP GRAVITY URINE 1.015
[2018-12-31] MEDS: MORPHINE IV PRN (20:23)
[2018-12-31] MEDS: ZOFRAN IV PRN (20:23)
--- NOTE | 2018-12-31 20:40 | HISTORY AND PHYSICAL ---
ADDENDUM: I have seen and examined Ms. Suarez today in the emergency room. Ms. Suarez came from rehab this morning after she found a purulent discharge coming from the lower abdomen from her previous incision site. Ms. Suarez was discharged from this hospital just about a week ago after she underwent a robotic- assisted laparoscopic abdominoperineal resection with Dr. Serrano on 12/03/2018. She also had a colostomy on the left side. She said she was doing okay at the rehab, but she has been having some residual chills, no fever. This morning she went to eat and she just felt a warm feeling under her lower abdomen and something in her gown. When she looked, it was just draining from her lower abdomen. She was brought to the emergency room where she was also found to be slightly tachycardic. Blood pressure was fine, temperature was okay, but white cell count was elevated at 15.94. Physical exam showed a left ileostomy in place, a midline surgical scar. The lower abdomen has a dehiscence of wound which is exuding purulent material. A CT scan of the chest and abdomen shows a new extremely superficial gas-fluid collection that is primarily gas in the region of the midline laparotomy incision. It is near to but does not appear to communicate with the left lower quadrant ostomy. ASSESSMENT: 1. Sepsis secondary to wound infection. 2. Lower abdomen infected wound with dehiscence. 3. Altered mental status on presentation secondary to infection and encephalopathy. Please refer to the details of the history and physical that has been dictated by the INFORMATION TECHNOLOGY PROFESSOR in the chart. cc: Gómez Lopez MD
--- NOTE | 2018-12-31 21:41 | GENERAL SURGERY CONSULTATION ---
DATE: 12/31/2018 REASON FOR CONSULTATION: Wound drainage. CHIEF COMPLAINT: Incisional discomfort and drainage. HISTORY OF PRESENT ILLNESS: This is a 68-year-old female with multiple medical issues. She has coronary disease, status post CABG, COPD, congestive heart failure, and rectal carcinoma, who is status post abdominoperineal resection approximately 3 weeks ago. She had a protracted course related to her cardiopulmonary issues, but was discharged to rehab and overall was doing okay. She presented back with a large amount of drainage after coughing this afternoon from her wound. It was purulent in nature and maroon colored. Ostomy has been functioning normally. She is tolerating her diet, but has had decreased appetite. She was found to have leukocytosis, low grade tachycardia. She was resuscitated, started on antibiotics, and I was consulted. MEDICAL HISTORY: 1. Coronary artery disease. 2. COPD. 3. Dyslipidemia. 4. Congestive heart failure. 5. Hypothyroidism. 6. Obesity. 7. Rectal carcinoma. SURGICAL HISTORY: 1. Abdominoperineal resection. 2. Coronary artery bypass grafting. 3. Tonsillectomy. 4. Bilateral tubal ligation. SOCIAL HISTORY: She does have a history of smoking. No alcohol. No drugs. She is at [facility]. REVIEW OF SYSTEMS: A 10-point review of systems is negative other than what is mentioned in HPI. FAMILY HISTORY: Reviewed and noncontributory. OBJECTIVE: General: She has tachycardia in the one-teens, but no fevers. Blood pressure has been one-teens to one-twenty systolic. Oxygen saturation is high 90s to 100% on room air. General: She is alert, in no acute distress. HEENT: No scleral icterus. She does have poor dentition. Cardiovascular: Sinus tachycardia. Pulmonary: No increased work of breathing. Abdomen: Soft. Lower midline has an open portion draining what appears to be purulent old hematoma. Her fascia is intact on ostomy. It is pink, viable, stool in the bag. Extremities: There is no lower extremity edema. Psychiatric: Appropriate affect. Neurologic: No gross deficits. LABORATORY DATA: White count is 15, hematocrit is 31, platelets 395,000. ABG was removed. Creatinine is 0.7. Troponins are negative. Lactate is 1.1. I have reviewed her CT scan of the abdomen and pelvis that shows superficial gas/fluid collection above the fascia, below the skin, but does not communicate with the ostomy or intraabdominal process. ASSESSMENT AND PLAN: This is a 68-year-old female with superficial wound infection, status post abdominoperineal resection. It seems to have decompressed completely. I probed the wound and it is adequately drained. She does not have a significant amount of cellulitis. We will admit her for resuscitation, intravenous antibiotics, and ongoing wound care, but suspect that this will resolve rapidly without any surgical intervention. cc: Aramis Serrano MD
[2019-01-01] MEDS: ZOFRAN IV PRN ×6 (00:42→20:42)
[2019-01-01] MEDS: MORPHINE IV PRN ×6 (00:42→20:42)
[2019-01-01] MEDS: ZOSYN 3.375 GM in NS 50 ML IV SCH ×3 (04:07→22:31)
[2019-01-01] MEDS: NS 1,000 ML IV SCH ×2 (04:11→14:32)
[2019-01-01 06:15] LABS: BASO# 0.01 X1000 (0.0-0.2); BASO% 0.1 % (0.0-0.8); HEMATOCRIT 28.8 % (37.0-47.0); HEMOGLOBIN 8.4 g/dL (12.0-16.0); IMM GRAN# 0.07 X1000 (0.0-0.04); IMM GRAN% 0.5 % (0.0-0.5); LYMPH# 0.54 X1000 (1.2-3.4); LYMPH% 4.2 % (20.5-51.1); MCH 28.8 PG (27-31); MCHC 29.2 g/dL (33-37); MCV 98.6 FL (81-99); MONO# 1.22 X1000 (0.11-0.59); MONO% 9.4 % (1.7-9.3); MPV 11.8 FL (7.4-10.4); NEUT# 11.11 X1000 (1.4-6.5); NEUT% 85.8 % (42.2-75.2); PLT 326 X1000 (130-400); RBC 2.92 XMIL (4.2-5.4); RDW 16.5 % (11.5-14.5); WBC 12.95 X1000 (4.8-10.8)
[2019-01-01 06:31] LABS: AGAP 20; ALB/GLOB RATIO 0.8; ALBUMIN 2.6 g/dL (3.5-5.0); ALKALINE PHOSPHATASE 105 U/L (32-104); BUN 14 mg/dL (8-22); CALCIUM 8.2 mg/dL (8.8-10.2); CHLORIDE 105 mmol/L (98-107); COSMO 287; CREATININE 0.6 mg/dL (0.5-0.9); ESTIMATED GFR > 60; GLUCOSE 93 mg/dL (70-104); GOT 72 U/L (10-30); GPT 40 U/L (10-36); MAGNESIUM 2.8 mg/dL (1.5-2.7); SODIUM 144 mmol/L (136-145); TCO2 19 mmol/L (25-35); TOTAL BILIRUBIN 0.32 mg/dL (0.20-1.00); TOTAL PROTEIN 5.9 g/dL (6.3-8.3)
[2019-01-01 06:32] LABS: BANDS 16 % (0-1); LYMPHS 7 % (21-51); MONO 8 % (1-9); SEGS 69 % (42-75)
--- NOTE | 2019-01-01 13:47 | PROGRESS NOTE ---
DATE: 01/01/2019 Yanely Suarez is a 68-year-old white female patient Dr. Ori Serrano who is status post abdominoperineal resection. She was admitted with hypotension and drainage from her lower midline wound. She is in the ICU and she is hemodynamically stable awake and cooperative. She has a left- sided colostomy that is functioning but she also has what I feel is stool draining from the most inferior aspect of her wound. I cleansed that area of the wound completely and redressed her wound. 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 She has begun on clear liquids. I agree with transferring her from the ICU. We will continue IV antibiotics and wound care. She did get a CT scan 12/31/2018 which showed a small fluid collection with some inflammation at the anterior fascia but no intraabdominal abscess. cc: Paola Cohen MD
--- NOTE | 2019-01-01 13:49 | PROGRESS NOTE ---
DATE: 01/01/2019 SUBJECTIVE: This morning Ms. Suarez refers to be doing a lot better. She wants something to eat. OBJECTIVE: Vital signs: Blood pressure is 122/46, pulse of 109, respirations 21, temperature is 97.6 degrees. General: Ms. Suarez is a 68-year-old female, she is in bed, in no distress. Mucosa is pink and moist. Anicteric. Acyanotic. Neck: Supple. Chest: Good air entry bilateral. There is an old sternotomy scar on the anterior chest wall. There is also a scar over the left shoulder from previous orthopedic surgery. Cardiovascular: Regular rate and rhythm. There was no murmurs, no rubs. GI: Abdomen is soft. There is an old midline surgical scar. There is an ostomy on the left side of the abdominal wall. The lower abdomen is covered with sterile dressing. Extremities: No pedal edema. 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 LABORATORY DATA: WBC is down to 12.95, hemoglobin is 8.4, platelet count of 236,000. Chemistry is also reviewed. Bicarb is 19 with a gap of 20. AST and ALT are minimally elevated. CURRENT MEDICATIONS: Include: Vancomycin per pharmacy protocol. Zosyn 3.375 grams every 6 hours. Normal saline at 125 mL/hour. ASSESSMENT: 1. Septic shock secondary to wound infection. The patient has run a couple of readings of systolic blood pressures in the 90s. However, this has responded well to fluid resuscitation. She did not need any vasopressor. Current shock index is 1. 2. Lower abdomen infected wound with dehiscence. This has spontaneously been draining. Cultures have been done. We are still waiting for the culture results. 3. Altered mental status on presentation secondary to infectious encephalopathy. The patient's mentation is significantly improved. 4. History of coronary artery disease, status post CABG in the past. 5. Diabetes mellitus. 6. Hypothyroidism. 7. Status post abdominoperineal resection. PLAN: So, in general, Ms. Suarez seems to be doing okay, hemodynamically stable. She has not needed any pressor and blood pressures have been fairly stable since overnight. She is going to be transferred from the ICU to the surgical floor. We will want to continue with the IV fluids, antimicrobial therapy, and wound care. Surgery is on board and will follow up with further recommendations from them. cc: Gómez Lopez MD [facility]
[2019-01-01] MEDS ORDERED: VANCOMYCIN 1,200 MG in NS 250 ML IV SCH (14:00)
[2019-01-02] MEDS: ZOFRAN IV PRN ×5 (02:32→23:38)
[2019-01-02] MEDS: MORPHINE IV PRN ×5 (02:33→23:38)
[2019-01-02] MEDS: NS 1,000 ML IV SCH (03:24)
[2019-01-02] MEDS: ZOSYN 3.375 GM in NS 50 ML IV SCH ×4 (03:41→23:37)
[2019-01-02 06:58] LABS: BASO# 0.02 X1000 (0.0-0.2); BASO% 0.3 % (0.0-0.8); EOS# 0.01 X1000 (0.0-0.7); EOS% 0.2 % (0.0-10.0); HEMATOCRIT 28.4 % (37.0-47.0); HEMOGLOBIN 8.3 g/dL (12.0-16.0); IMM GRAN# 0.12 X1000 (0.0-0.04); LYMPH# 0.99 X1000 (1.2-3.4); LYMPH% 16.5 % (20.5-51.1); MCH 28.5 PG (27-31); MCHC 29.2 g/dL (33-37); MCV 97.6 FL (81-99); MONO# 0.74 X1000 (0.11-0.59); MONO% 12.3 % (1.7-9.3); MPV 11.7 FL (7.4-10.4); NEUT# 4.12 X1000 (1.4-6.5); NEUT% 68.7 % (42.2-75.2); PLT 309 X1000 (130-400); RBC 2.91 XMIL (4.2-5.4); RDW 16.3 % (11.5-14.5)
[2019-01-02 07:28] LABS: AGAP 13; ALBUMIN 2.3 g/dL (3.5-5.0); BUN 7 mg/dL (8-22); CALCIUM 7.9 mg/dL (8.8-10.2); CHLORIDE 108 mmol/L (98-107); COSMO 286; CREATININE 0.5 mg/dL (0.5-0.9); ESTIMATED GFR > 60; GLUCOSE 116 mg/dL (70-104); PHOSPHORUS 3.2 mg/dL (2.7-4.5); POTASSIUM 3.5 mmol/L (3.5-5.1); SODIUM 144 mmol/L (136-145); TCO2 23 mmol/L (25-35)
[2019-01-02] MEDS ORDERED: ROCEPHIN 1 GM in NS 50 ML IV SCH (08:00)
--- NOTE | 2019-01-02 08:23 | PROGRESS NOTE ---
DATE: 01/02/2019 SUBJECTIVE: This morning, Ms. Suarez refers to be doing fairly okay. Denies any new complaints. He said his lower abdomen secretions have just been getting worse. Per the nursing account, any time she coughs, there is just tons of what seems to be fecal material is what is coming out. OBJECTIVE: Vital Signs: Blood pressure is 141/56, pulse of 101, respirations 22, temperature is 98 degrees. General: Ms. Suarez is a 68-year-old female. She is in bed, not seemingly distressed. HEENT: Mucosa is pink and moist. Anicteric. Acyanotic. Neck: Supple. Chest: Good air entry bilaterally. There are no crepitations, no rhonchi. There is an old sternotomy scar on the anterior chest wall. There is also a scar over the left shoulder from previous orthopedic surgery. Cardiovascular: Regular rate and rhythm. No murmurs, no rubs, no gallops. GI: Abdomen is soft. There is an old midline surgical scar. There is an ostomy on the left side of the abdomen. The lower abdomen also has a track, which is just oozing out some dark material, which is suspicious for feces. Extremities: About 1+ pedal edema. 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 LABORATORY DATA: WBC is 6.00, hemoglobin is 8.3, platelet count of 309,000. Chemistry is also reviewed and is unremarkable. MICROBIOLOGY: Blood culture is 48 hours negative. Abdomen culture shows Klebsiella pneumoniae and enterococcal faecium, which is VRE. ASSESSMENT: 1. Septic shock on presentation secondary to abdominal wound infection. The patient responded to fluid resuscitation. Did not need any vasopressor. Was admitted transiently into the intensive care unit. Vitals are now stable. 2. Lower abdomen infected wound with dehiscence. Culture positive for Klebsiella pneumoniae and Enterococcus faecium. Antibiotics have been changed to ceftriaxone once daily dosing, and daptomycin also once daily dosing. 3. 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 The material this morning that is coming out is dark. It looks like it is fecal material. Will be waiting on Surgery to evaluate her today, and then give us some recommendations. Will also get Wound Care to evaluate her. I think, for now, would have to put in another ostomy bag down where the tract is to collect the material that is coming out. The ostomy bag seems to have similar material, but it is, for the most part, empty. 4. Altered mental status on presentation, resolved. 5. History of coronary artery disease, status post coronary artery bypass graft in the past. Noted. 6. Diabetes mellitus. Controlled. 7. Hypothyroidism. Will continue with thyroid replacement. 8. Status post abdominoperineal resection for rectal malignancy. In general, Ms. Suarez is clinically stable. Vitals are stable. We are going to discontinue the intravenous fluids. She seems to be retaining some. White cell count has normalized. Will switch her current antimicrobial therapy to target the pathogens involved. 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 Will wait on Surgery to guide us on the management. I have discussed the plan with her and with her attending nurse. cc: Gómez Lopez MD
[2019-01-02] MEDS ORDERED: CUBICIN 600 MG in NS 100 ML IV SCH (09:00)
--- NOTE | 2019-01-02 12:19 | PROGRESS NOTE ---
DATE: 01/02/2019 SUBJECTIVE: Ms. Yanely Suarez is a 68-year-old white female who is status post abdominoperineal resection with permanent end colostomy per Dr. Serrano. She was admitted with infection. Her white blood cell count has gone from 15 to 6 with IV antibiotics. She has had some drainage from her lower abdominal wound, which I think is stool. It has been bagged so that the drainage can be controlled. She is still having output from her end colostomy also. She is on a regular diet. Her heart rate is 95, blood pressure 146/46, O2 saturation 100%. She is afebrile. IV antibiotics include IV vancomycin and Zosyn. Her white blood cell count is 6, hematocrit is 28%. Electrolytes are within normal limits. BUN of 7, creatinine 0.5. PLAN: I agree with bagging this area of the lower abdominal incision. I agree with continuing IV antibiotics, and I will notify Dr. Serrano of her physical exam tomorrow. cc: Paola Cohen MD
--- NOTE | 2019-01-02 17:32 | INFECTIOUS DISEASE CONSULT REP ---
DATE: 01/02/2019 CONCLUSION: The patient is status post wound dehiscence and there also may be an intestinal fistula draining into the wound. Culture from the wound grew Klebsiella and vancomycin-resistant Enterococcus. RECOMMENDATIONS: I have discontinued Rocephin and daptomycin and instead put the patient on Zosyn. Some of the side effects of the antibiotic including rash and diarrhea have been explained the patient who agrees with treatment. DISCUSSION: The patient is status post abdominoperitoneal resection. Her wound dehisced and she has infection from which Klebsiella and vancomycin-resistant Enterococcus were isolated. The patient's studies thus far show a CBC with a white count of 6,000, hemoglobin 8.3, and platelet count of 309,000. Creatinine is 0.5. GFR is greater than 60. Urinalysis showed no white cells or bacteria. Culture from the dehisced area grew Klebsiella and vancomycin-resistant Enterococcus. Blood cultures are negative. Chest x-ray shows no acute disease. CT scan of the abdomen and pelvis showed a gas fluid collection in the abdominal wound. PAST MEDICAL HISTORY/REVIEW OF SYSTEMS: Eyes and ears: Hearing and vision are okay. Neck: No stiffness. Bones and joints: The patient complains of joint pain and diffuse muscle aching. Her joints are not swollen. Integument: No rashes. GI: See present illness. The patient is not having nausea or vomiting. : No dysuria or flank pain. Neurologic: No seizures. No loss of motor or sensory function. Integument: No rash. 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 PREVIOUS HOSPITALIZATIONS AND OPERATIONS: She has had labor and deliveries, coronary artery bypass grafting, admissions for congestive heart failure. She has also had a tonsillectomy and she is status post abdominoperitoneal resection. MEDICAL DISEASES: Positive for coronary artery disease, hypertension, rectal cancer, osteoarthritis, COPD, hyperlipidemia, and congestive heart failure. INFECTIOUS DISEASE HISTORY: Positive for pneumonia and UTI. FAMILY HISTORY: Positive for diabetes mellitus, hypertension, and cancer. SOCIAL HISTORY: [place] She is a . She lives alone. She stopped smoking cigarettes 10 years ago. She does not drink alcoholic beverages or abuse drugs. MEDICATIONS: Taken at home include baclofen, Coreg, Plavix, Benadryl, Lasix, Prinivil, Ativan, Tapazole, montelukast, MiraLAX, Pravachol, and tramadol. PHYSICAL EXAMINATION: Vital Signs: Temperature is 98.7 degrees, pulse 85, respirations 16, blood pressure 147/58. The patient weighs 146 pounds. General: This is an ill-appearing, elderly female. She is in no acute distress. Head, eyes, ears, nose, and throat: She can hear my spoken words and see near objects. She does not have any white patches on her tongue. Neck: No meningismus. Lungs: Clear to auscultation. Cardiovascular: Heart rate is regular. Abdomen: Soft. The patient has an ostomy in place. Also, in addition to the colostomy, there is also another area where there is drainage and the drainage looks like the same drainage that is in the patient's ostomy. The place where there were small incisions made have all healed well. Neurologic: The patient is alert. She can move her extremities. There is no tremor. Her sensation was intact. Her memory as regarding her medical history was slightly decreased. Integument: No rash noted. Thank you for the consult. cc: Kelvin Barnes MD
[2019-01-03] MEDS: ZOFRAN IV PRN ×5 (03:29→22:25)
[2019-01-03] MEDS: MORPHINE IV PRN ×5 (03:29→22:25)
[2019-01-03] MEDS: ZOSYN 3.375 GM in NS 50 ML IV SCH ×4 (05:47→23:52)
[2019-01-03] MEDS ORDERED: ATIVAN PO PRN (11:19)
--- NOTE | 2019-01-03 12:01 | PROGRESS NOTE ---
DATE: 01/03/2019 SUBJECTIVE: This morning, Ms. Suarez refers to be doing fairly okay, was just more concerned about her pain medications. She said she feels a lot better since she has a bag over the lower abdomen draining. OBJECTIVE: Vital Signs: Blood pressure is 137/58, pulse of 74, respirations are 20, temperature is 98.3 degrees. General Examination: Ms. Suarez is a 68-year-old, female. She is in bed. No distress. HEENT: Mucosa is pink and moist. Anicteric. Acyanotic. Neck: Supple. Chest: Good air entry bilaterally. There were no crepitations, no rhonchi. There is an old sternotomy scar on the anterior chest wall. There is also a scar over the left shoulder from previous orthopedic surgery. Cardiovascular: Regular rate and rhythm. There were no murmurs, no rubs, no rhonchi, no gallops. GI: Abdomen is soft. There is an old midline surgical scar. There is also an ostomy on the left side. The lower abdomen has now an ostomy bag which is also filled with dark fecal material. Extremities: No pedal edema. 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 No lab work for this morning. Blood cultures have been 48 hours negative. The patient is currently on Zosyn by recommendations from ID. ASSESSMENT: 1. Septic shock on presentation secondary to abdominal wound infection. The patient responded well to fluid resuscitation. Did not need any vasopressor. Blood cultures have been negative. 2. Lower abdomen wound infection with dehiscence. Culture positive for Klebsiella pneumoniae and Enterococcal faecium which is vancomycin-resistant enterococcus. The patient has been evaluated by Dr. Barnes and he has recommended Zosyn. 3. 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 The patient is pending surgery evaluation and further recommendations. 4. Altered mental status on presentation secondary to infectious encephalopathy, resolved. 5. History of coronary artery disease, status post coronary artery bypass graft, noted. 6. Diabetes mellitus, controlled. 7. Hyperparathyroidism. Patient is on methimazole. This has been restarted. 8. Status post abdominoperineal resection for rectal malignancy. PLAN: In general, I think Ms. Suarez is doing well, hemodynamically stable, and she is on Zosyn as a single antimicrobial agent. We are still waiting on the surgery recommendation on the suspected colocutaneous fistula long-term management. DISPOSITION: Ms. Suarez came from [facility]. She will most likely be returned there once she is medically stable and surgery has determined what they will do with the colocutaneous fistula. cc: Gómez Lopez MD
[2019-01-03] MEDS: COREG PO SCH ×2 (12:08→23:52)
[2019-01-03] MEDS: LIORESAL PO SCH ×2 (12:08→16:36)
[2019-01-03] MEDS: TAPAZOLE PO SCH (12:21)
--- NOTE | 2019-01-03 16:32 | INFECTIOUS DISEASE PROGRESS NO ---
DATE: 01/03/2019 PRESENT ILLNESS: The patient is status post wound dehiscence. There may be an intestinal fistula draining into the wound. Klebsiella and vancomycin-resistant Enterococcus have been isolated from the wound. MEDICATIONS: This is the is day 1 of treatment with Zosyn. PHYSICAL EXAMINATION: Vital Signs: Temperature is 98.3 degrees, pulse 74, respirations 20, blood pressure 137/58. General: This is a somewhat ill-appearing, elderly female. She is in no acute distress, however. Head/eyes/ears/nose/throat: She can hear my spoken words and see near objects. I did not notice any white coating on her tongue. Neck: There was no stiffness. Lungs: Clear to auscultation. Cardiovascular: Heart rate is regular. Abdomen: There was no tenderness to light palpation. The patient has [address], one is draining the wound and the other is draining the intestine. Neurologic: The patient is alert. She can move her extremities. There are no tremors. LAB AND X-RAY: There is not any new lab or x-ray for today. ASSESSMENT AND PLAN: The patient has a wound dehiscence and also possible intestinal fistula into the wound as well. My plan is to continue with Zosyn. COMORBIDITIES: Patient has rectal cancer and COPD and congestive heart failure. cc: Kelvin Barnes MD
--- NOTE | 2019-01-03 22:19 | GENERAL SURGERY PROGRESS NOTE ---
DATE: 01/03/2019 SUBJECTIVE: Doing okay. She is eating dinner. Still having some occasional shortness of breath. OBJECTIVE: Vital Signs: Pulse in mid 90s. No fevers. Blood pressure 126/48. Oxygen saturation 100 percent. General: General is eating dinner. Abdomen: Abdomen is soft. Ostomy is pink. Viable stool in the bag. She does have drainage from the lower midline. I do not see any cellulitis. LABORATORY DATA: White count is normal at count 6, hematocrit 28. Creatinine 0.5. ASSESSMENT AND PLAN: This is a 68-year-old female status post abdominoperineal resection. She developed drainage from a lower midline wound. At this point it does appear to be a colocutaneous fistula, most likely from her colostomy tracking to her midline wound. It seems to be well controlled. I do not see any compromise in her abdominal wall. Her infection counts are improving. We will continue pouching both. I have discussed this with the patient. She understands. She is on antibiotics. We will follow along. cc: Aramis Serrano MD
[2019-01-03] MEDS: ICAR-C PO SCH (22:25)
[2019-01-04] MEDS: MORPHINE IV PRN ×4 (05:03→18:15)
[2019-01-04] MEDS: ZOFRAN IV PRN ×4 (05:03→18:15)
[2019-01-04] MEDS: ZOSYN 3.375 GM in NS 50 ML IV SCH ×3 (05:03→17:18)
[2019-01-04] MEDS: PRINIVIL PO SCH (09:26)
[2019-01-04] MEDS: ICAR-C PO SCH ×2 (09:26→20:19)
[2019-01-04] MEDS: LIORESAL PO SCH ×3 (09:26→17:18)
[2019-01-04] MEDS: TAPAZOLE PO SCH (09:26)
[2019-01-04] MEDS: PLAVIX PO SCH (09:26)
[2019-01-04] MEDS: PRAVACHOL PO SCH (09:26)
[2019-01-04] MEDS: ASPIRIN EC PO SCH (09:27)
[2019-01-04] MEDS: MAG-OX PO SCH (09:27)
[2019-01-04] MEDS: COREG PO SCH (12:33)
[2019-01-04] MEDS: NORCO-7.5 PO PRN ×2 (12:38→20:19)
[2019-01-04] MEDS: DUONEB (A & A) INH PRN (19:01)
--- NOTE | 2019-01-04 20:36 | PROGRESS NOTE ---
DATE: 01/04/2019 SUBJECTIVE: The patient has no major complaints. OBJECTIVE: Blood pressure is 130/49, heart rate 84, respiratory rate 19, temperature 97.6 degrees, 99% on 7 L. Cardiovascular: Regular rate and rhythm.Pulmonary: Bilateral breath sounds, clear to auscultation. GI was soft, nontender, nondistended. Bowel sounds are positive. LABORATORY DATA: White count 6, hemoglobin and hematocrit 8 and 28, platelets 309,000. Basic was normal. ASSESSMENT AND PLAN: 1. Septic shock. The patient is doing better off pressors. 2. Abdominal wound infection with klebsiella, enterococcus and vancomycin-resistant enterococci, with wound dehiscence. She is on Zosyn per Dr. Barnes. 3. Colocutaneous fistula. Surgery is managing right now, just kind of conservatively. 4. Type 2 diabetes, overall stable. 5. Hyperthyroidism. She is currently on methimazole. 6. Disposition: Rehabilitation once stabilized. Waiting on end user consultant input as far as when it is safe to transfer her. She is currently on Zosyn, and Dr. Barnes will make some recommendations concerning that. Surgery will need to also give clearance. We will continue to monitor. cc: Korey Da Silva MD
--- NOTE | 2019-01-04 21:30 | INFECTIOUS DISEASE PROGRESS NO ---
DATE: 01/04/2019 PRESENT ILLNESS: Ms. Suarez is status post abdominoperineal resection with colocutaneous fistula. Her abdominal culture grew Klebsiella and vancomycin-resistant enterococcus. MEDICATIONS: Today is day 2 of treatment with Zosyn 3.375 g IV every 6 hours. PHYSICAL EXAMINATION: Vital Signs: Temperature is 98.1 degrees, pulse rate 80, respiratory rate 19, blood pressure 139/48, O2 saturation is 100% on 2 L nasal cannula. General: This is an elderly, chronically ill-appearing female. She is lying in bed, currently in no acute distress. HEENT: Atraumatic, normocephalic. Oral mucous membranes are pink and moist. Conjunctivae are pale. Neck: Supple. Trachea is midline. Cardiovascular: Heart rate and rhythm are regular. Normal sinus rhythm on the monitor. She does have occasional PVCs. Respiratory: Lung sounds are clear to auscultation bilaterally. Diminished in the mid and bases. No work of breathing is noted. Abdomen: Soft round and tender to palpation. Bowel sounds are active. There are [address] Both draining brown-green liquid. Neurologic: She is awake alert oriented and able to move her extremities with generalized mild weakness noted. LABORATORY AND X-RAY: None available today. ASSESSMENT AND PLAN: Ms. Suarez is being treated for a colocutaneous fistula which has grown vancomycin-resistant Enterococcus and Klebsiella. She is receiving Zosyn and has been afebrile with her last white count being normal. For now, we will continue the Zosyn as ordered. These plans have been discussed with and recommended by Dr. Barnes. COMORBIDITIES: Include COPD, congestive heart failure, coronary artery disease, and rectal cancer indication. Dictated by SILVERIO Rivera for Kelvin Barnes MD cc: Kelvin Barnes MD
--- NOTE | 2019-01-04 22:30 | GENERAL SURGERY PROGRESS NOTE ---
DATE: 01/04/2019 SUBJECTIVE: She seems to be feeling okay. She is eating. She denies any fevers. No tachycardia. Her abdomen is soft. Ostomy is pink viable stool in the bag. There seems to be less drainage from her midline wound, although, it does still appear feculent. No new labs at this point. ASSESSMENT AND PLAN: A 68-year-old female, status post abdominoperineal resection. Unfortunately, it seems that her colostomy has fistulized the midline wound. We will continue to pouch them both. I suspect that with preferential flow out of her colostomy we may see this improved, but we will monitor going forward. As she recovers from this, she may need a local intervention to revise her colostomy, but right now we seem to have adequate pouching with no significant soft tissue infection ongoing. She is on antibiotics. We will continue to follow her along. cc: Aramis Serrano MD
[2019-01-05] MEDS: ZOFRAN IV PRN ×5 (00:02→20:03)
[2019-01-05] MEDS: COREG PO SCH ×4 (00:02→22:38)
[2019-01-05] MEDS: MORPHINE IV PRN ×5 (00:02→20:03)
[2019-01-05] MEDS: ZOSYN 3.375 GM in NS 50 ML IV SCH ×3 (00:03→12:30)
[2019-01-05 06:53] LABS: BASO# 0.04 X1000 (0.0-0.2); BASO% 0.5 % (0.0-0.8); HEMATOCRIT 29.9 % (37.0-47.0); HEMOGLOBIN 8.8 g/dL (12.0-16.0); IMM GRAN# 0.29 X1000 (0.0-0.04); IMM GRAN% 3.9 % (0.0-0.5); LYMPH# 1.55 X1000 (1.2-3.4); MCH 28.7 PG (27-31); MCHC 29.4 g/dL (33-37); MCV 97.4 FL (81-99); MONO# 0.69 X1000 (0.11-0.59); MONO% 9.4 % (1.7-9.3); MPV 11.9 FL (7.4-10.4); NEUT% 65.2 % (42.2-75.2); PLT 313 X1000 (130-400); RBC 3.07 XMIL (4.2-5.4); RDW 15.7 % (11.5-14.5); WBC 7.37 X1000 (4.8-10.8)
[2019-01-05 07:18] LABS: AGAP 11; BUN 4 mg/dL (8-22); CALCIUM 8.3 mg/dL (8.8-10.2); CHLORIDE 107 mmol/L (98-107); COSMO 286; CREATININE 0.5 mg/dL (0.5-0.9); ESTIMATED GFR > 60; GLUCOSE 99 mg/dL (70-104); POTASSIUM 2.7 mmol/L (3.5-5.1); SODIUM 145 mmol/L (136-145); TCO2 27 mmol/L (25-35)
[2019-01-05] MEDS: DUONEB (A & A) INH PRN (07:29)
[2019-01-05] MEDS: PRAVACHOL PO SCH (08:48)
[2019-01-05] MEDS: ICAR-C PO SCH ×2 (08:48→20:03)
[2019-01-05] MEDS: PLAVIX PO SCH (08:49)
[2019-01-05] MEDS: MAG-OX PO SCH (08:49)
[2019-01-05] MEDS: ASPIRIN EC PO SCH (08:49)
[2019-01-05] MEDS: NORCO-7.5 PO PRN ×2 (08:49→17:27)
[2019-01-05] MEDS: PRINIVIL PO SCH (08:49)
[2019-01-05] MEDS: TAPAZOLE PO SCH (08:49)
[2019-01-05] MEDS: LIORESAL PO SCH ×3 (08:49→17:02)
[2019-01-05] MEDS: LEVAQUIN PO SCH (15:38)
--- NOTE | 2019-01-05 22:17 | GENERAL SURGERY PROGRESS NOTE ---
DATE: 01/05/2019 SUBJECTIVE: Doing okay. She is tolerating the diet. She is working with physical therapy. She has had significantly less out of her midline wound and mostly coming out of her colostomy. OBJECTIVE: I reviewed her labs. White count remains normal. On exam, she is alert, in no acute distress. No fevers. No tachycardia. Blood pressures have been okay at 145/56. ASSESSMENT AND PLAN: A 68-year-old female status post abdominoperineal resection. She had fistulization from her colostomy in her midline wound. Overall, I suspect that with preferential flow out of her colostomy, this fistula may close, but we will monitor her going forward. cc: Aramis Serrano MD
[2019-01-05] MEDS: AMOXIL PO SCH (22:38)
--- NOTE | 2019-01-06 00:03 | INFECTIOUS DISEASE PROGRESS NO ---
DATE: 01/05/2019 SUBJECTIVE: The patient is status post abdominoperineal resection and she developed a colocutaneous fistula. Culture from the fistula grew Klebsiella and vancomycin-resistant Enterococcus. MEDICATIONS: This is day 3 of treatment with Zosyn in a dose of 3.375 g IV every 6 hours. PHYSICAL EXAMINATION: Vital Signs: Temperature is 98 degrees, pulse 88, respirations 19, blood pressure is 140/58. General: This is a chronically ill-appearing, elderly female. She is in no acute distress and in the past few days actually is looking better each day. Head/eyes/ears/nose/throat: She can hear my spoken words and see near objects. I did not see any white patches on her tongue. Neck: She did not have any pain with moving her neck. Lungs: Clear to auscultation. Cardiovascular: Regular heart rate. Abdomen: Soft. It is not tender to light palpation. There are [address], 1 is draining the patient's abdominal wound and the other one is a colon ostomy. Neurologic: The patient is alert. She can move her extremities. There is no tremor. LAB AND X-RAY STUDIES: There is no new radiographic study. The patient's CBC today showed a white count of 7370, hemoglobin 8.8, and platelet count 313,000. Creatinine is 0.5. GFR is greater than 60. ASSESSMENT AND PLAN: The patient has a colocutaneous fistula. I plan on continuing Zosyn, most likely for 2 weeks; hopefully, the infection will heal. If not, then I would probably continue with antibiotics only they would be by mouth. COMORBIDITIES: The patient has chronic obstructive pulmonary disease, congestive heart failure, coronary artery disease, and rectal cancer. cc: Kelvin Barnes MD
[2019-01-06] MEDS: ZOFRAN IV PRN ×4 (00:43→13:43)
[2019-01-06] MEDS: MORPHINE IV PRN ×4 (00:44→13:42)
--- NOTE | 2019-01-06 04:26 | PROGRESS NOTE ---
DATE: 01/05/2019 SUBJECTIVE: The patient has no major complaints. OBJECTIVE: Vital signs: Blood pressure is 127/46, heart rate of 75, respiratory rate 18, temperature 98 degrees, 100% on room air. Cardiovascular: Regular rate and rhythm. Pulmonary: Bilateral breath sounds clear to auscultation. Gastrointestinal: Soft, nontender, nondistended. Bowel sounds are positive. She has ostomies located beneath. LABS: White count 7, hemoglobin and hematocrit 8 and 29, platelets 313,000. Potassium is 2.7 today. PROBLEM LIST: 1. Abdominal wound infection with Klebsiella, Enterococcus, and Vancomycin-resistant Enterococcus associated with wound dehiscence. She was on Zosyn. We discussed changing her to Levaquin in addition to, I believe, Keflex or amoxicillin to cover the bacterial spectrum. 2. Colocutaneous fistula that seems to be doing better. There is less output coming out normally of the ostomy. 3. Type 2 diabetes is stable. 4. Hypothyroidism is currently controlled on methimazole. DISPOSITION: Anticipate discharge to rehab tomorrow, if stable on oral antibiotics. This has been outlined by Dr. Barnes. cc: Korey Da Silva MD
--- NOTE | 2019-01-06 05:04 | INFECTIOUS DISEASE PROGRESS NO ---
DATE: 01/05/2019 ADDENDUM: The patient is going to be going to a rehab facility. I am changing the patient's antibiotics from Zosyn to the combination of amoxicillin and Levaquin. Specifically, it will be amoxicillin 500 mg p.o. every 8 hours and Levaquin will be 500 mg p.o. daily. This will be for a total of 2 weeks, and the stop date on that will be 02/19/2019 at 23:00 is the last hour of treatment. I am signing off the patient's case now. cc: Kelvin Barnes MD
[2019-01-06] MEDS: AMOXIL PO SCH ×2 (05:41→13:37)
[2019-01-06] MEDS: DUONEB (A & A) INH PRN ×2 (07:38→11:46)
[2019-01-06] MEDS: ASPIRIN EC PO SCH (10:21)
[2019-01-06] MEDS: LIORESAL PO SCH ×2 (10:21→13:37)
[2019-01-06] MEDS: ICAR-C PO SCH (10:21)
[2019-01-06] MEDS: LEVAQUIN PO SCH (10:21)
[2019-01-06] MEDS: PRINIVIL PO SCH (10:21)
[2019-01-06] MEDS: PRAVACHOL PO SCH (10:21)
[2019-01-06] MEDS: PLAVIX PO SCH (10:21)
[2019-01-06] MEDS: COREG PO SCH ×2 (10:22→11:51)
[2019-01-06] MEDS: MAG-OX PO SCH (10:22)
[2019-01-06] MEDS: TAPAZOLE PO SCH (10:22)
--- NOTE | 2019-01-06 11:35 | DISCHARGE SUMMARY ---
ADMISSION DATE: 12/31/2018 DISCHARGE DATE: 01/06/2019 PRIMARY CARE PHYSICIAN: Dr. Irma Smith. GENERAL SURGEON: Dr. Ori Serrano. CONSULTATIONS DURING HOSPITALIZATION: General Surgery, Infectious Disease. ADMISSION DIAGNOSES: 1. A probable wound dehiscence. 2. Chronic obstructive pulmonary disease with no exacerbation. 3. History of coronary artery disease and heart failure without chest pain or volume overload. 4. Diabetes type 2. 5. Dyslipidemia. 6. Hypothyroidism. 7. Obesity. 8. Rectal cancer status post robotic-assisted laparoscopic abdominoperineal resection by Dr. Ori Serrano. DISCHARGE DIAGNOSES: 1. Abdominal wound infection with Klebsiella and enterococcus and vancomycin-resistant Enterococcus associated with wound dehiscence. 2. Colocutaneous fistula, improved. 3. Diabetes type 2. 4. Hypothyroidism. SUMMARY OF FINDINGS: This is a 68-year-old female who had recently underwent a robotic assisted laparoscopic abdominoperineal resection by Dr. Ori Serrano. Had been discharged to rehab and while at rehab, she felt some warm fluid going down her abdomen and had what appeared to be some liquid bowel on her abdomen. She was brought to the ED and was evaluated by Dr. Serrano, placed on broad spectrum antibiotics. We did consult Infectious Disease, who felt that there was a wound dehiscence and also maybe an intestinal fistula draining into the wound and the culture grew out a Klebsiella and vancomycin-resistant Enterococcus. Changed antibiotics. She has responded well. White count is back to normal and it is now felt she has been afebrile for greater than 24 hours that she can safely be discharged back to rehab today. DISCHARGE MEDICATIONS: Include amoxicillin 500 mg p.o. q.8 hours, aspirin 81 mg p.o. daily, baclofen 10 mg p.o. t.i.d., carvedilol 6.25 mg p.o. q.12 hours, Plavix 75 mg p.o. daily, Icar-C 1 p.o. b.i.d. Levaquin 500 mg p.o. daily, lisinopril 5 mg p.o. daily, lorazepam 0.5 mg p.o. t.i.d. p.r.n., magnesium oxide 400 mg p.o. daily, methimazole 10 mg p.o. Thursday, Thursday, Thursday and 5 mg on Thursday, Thursday, , Thursday. Pravastatin 20 mg p.o. daily, Tylenol 650 mg p.o. q.4 hours p.r.n. DuoNeb q.6 hours p.r.n., Benadryl 25 mg p.o. q.4-6 hours p.r.n., Lasix 40 mg p.o. daily, montelukast sodium 10 mg p.o. daily, MiraLAX 17 g p.o. b.i.d., tramadol 50 mg p.o. q.6 hours p.r.n. FOLLOWUP: She will need to follow up with general surgeon, Dr. Serrano, infectious Disease, Dr. Barnes, and her primary care physician once her rehab stay is completed. TIME SPENT: This is a 35 minute discharge. Dictated by SILVERIO York for Korey Da Silva MD cc: SILVERIO York MD Lindsay Smith R. Tyler Harney, MD Leroy F. Harris, MD
[2019-01-06 11:55] VITALS: BP 145/62
[2019-01-06] MEDS: NORCO-7.5 PO PRN (11:57)
[2019-01-06] MEDS ORDERED: KLOR-CON PO ONE (13:02)
== END 2019-01-06 15:16 | DRG 862 ==
LOC: SUPCPDRO → ED 08:31 → EDIPHOLD 12:48 → SUATTDRO 12:48 → 1N 18:07 → EDIPHOLD 18:09 → ICU 22:26 → 4N 01-01 11:03
PROVIDERS: ATTEND Internal Medicine

== ENCOUNTER 2019-01-27 10:20 | Inpatient (IN) ==
[2019-01-27] MEDS ORDERED: ZOSYN 4.5 GM in NS 100 ML IV ONE (11:17)
[2019-01-27] MEDS ORDERED: VANCOMYCIN 1 GM/NS 1 GM/250 ML IVPB IV ONE (11:17)
[2019-01-27] MEDS ORDERED: NS 1,000 ML IV ONE ×2 (11:17→13:46)
[2019-01-27 11:43] LABS: BASO# 0.02 X1000 (0.0-0.2); BASO% 0.2 % (0.0-0.8); HEMATOCRIT 30.9 % (37.0-47.0); HEMOGLOBIN 9.2 g/dL (12.0-16.0); IMM GRAN# 0.11 X1000 (0.0-0.04); IMM GRAN% 1.1 % (0.0-0.5); LYMPH# 1.81 X1000 (1.2-3.4); LYMPH% 18.1 % (20.5-51.1); MCH 27.5 PG (27-31); MCHC 29.8 g/dL (33-37); MCV 92.5 FL (81-99); MONO# 0.87 X1000 (0.11-0.59); MONO% 8.7 % (1.7-9.3); MPV 10.9 FL (7.4-10.4); NEUT# 7.17 X1000 (1.4-6.5); NEUT% 71.9 % (42.2-75.2); PLT 364 X1000 (130-400); RBC 3.34 XMIL (4.2-5.4); RDW 15.9 % (11.5-14.5); WBC 9.98 X1000 (4.8-10.8)
--- NOTE | 2019-01-27 11:45 | Diag Imaging Result Doc PS360 ---
EXAM: CHEST-1 VIEW HISTORY: sepsis protocol TECHNIQUE: Single view COMPARISON: 12/31/2018 FINDINGS: The lungs are well expanded. The heart is not enlarged. There are sternal wires. The vessels are not distended. There are no infiltrates. No effusion identified. Scattered granuloma. IMPRESSION: No pneumonia Electronically signed by Wilberto Richardson 01/27/2019 11:43 AM
[2019-01-27 11:52] LABS: INR 1.03; PROTIME 13.6 Seconds (11.0-16.0)
[2019-01-27 11:53] LABS: PTT 29.7 Seconds (22.3-41.8)
[2019-01-27] MEDS ORDERED: ZOFRAN IV ONE (12:08)
[2019-01-27] MEDS ORDERED: MORPHINE IV ONE (12:08)
[2019-01-27 12:18] LABS: AGAP 14; ALB/GLOB RATIO 1.2; ALBUMIN 2.9 g/dL (3.5-5.0); ALKALINE PHOSPHATASE 140 U/L (32-104); BUN 11 mg/dL (8-22); CALCIUM 8.2 mg/dL (8.8-10.2); CHLORIDE 101 mmol/L (98-107); CK PROFILE 12 U/L (24-173); COSMO 283; CREATININE 0.6 mg/dL (0.5-0.9); ESTIMATED GFR > 60; GLUCOSE 105 mg/dL (70-104); GOT 10 U/L (10-30); GPT 8 U/L (10-36); POTASSIUM 3.6 mmol/L (3.5-5.1); SODIUM 142 mmol/L (136-145); TCO2 27 mmol/L (25-35); TOTAL BILIRUBIN 0.33 mg/dL (0.20-1.00); TOTAL PROTEIN 5.3 g/dL (6.3-8.3)
[2019-01-27 12:30] LABS: URINE SOURCE CLEAN CATCH
[2019-01-27 12:33] LABS: BILIRUBIN URINE NEGATIVE (NEGATIVE); BLOOD URINE MODERATE (NEGATIVE); COLOR YELLOW; GLUCOSE URINE NEGATIVE (NEGATIVE); KETONE URINE NEGATIVE (NEGATIVE); LEUKOCYTES URINE MODERATE (NEGATIVE); NITRITE URINE NEGATIVE (NEGATIVE); PROTEIN URINE 30 mg/dL (NEGATIVE); SP GRAVITY URINE 1.024; TURBIDITY URINE HAZY (CLEAR); UROBILINOGEN URINE NORMAL (NORMAL)
[2019-01-27 12:35] LABS: UR EPITHELIAL CELLS >10 /HPF (<10); URINE BACTERIA NEGATIVE /HPF; URINE RBC <10 /HPF (<10); URINE WBC <10 /HPF (<10)
[2019-01-27 12:59] LABS: URINE CASTS NONE SEEN; URINE CRYSTALS NONE SEEN; URINE SMALL ROUND CELLS NONE SEEN; URINE YEAST PRESENT
--- NOTE | 2019-01-27 13:21 | Diag Imaging Result Doc PS360 ---
EXAM: CT ABD/PELVIS W/IV CONT ONLY INDICATION: post-op wound infection TECHNIQUE: This exam was performed using automated exposure control, adjustment of mA or kV according to patient size, and/or use of iterative reconstruction technique. COMPARISON: 12/31/2018 FINDINGS: There is stable scarring at the right lung base. There are several stable low dense hepatic foci likely representing small cysts. The gallbladder, spleen, pancreas are unremarkable. There is stable low dense thickening of the adrenal gland suggesting underlying adenomas or hyperplasia. The kidneys and urinary bladder are unremarkable. The reproductive tract is unremarkable as imaged. At the lower portion of the laparotomy site, there is focal wound dehiscence. In the subcutaneous fat there is patchy gas and a collection of fluid that has decreased in size during the interval. It now measures up to 5.9 x 1.4 cm axially. There is a colostomy just to the left of the umbilicus. There is a collection of stool-like material in the mesentery at the ventral abdominal wall that measures 7.1 x 3.7 cm axially (see image 102, series 2). It abuts the colostomy site. It is unclear if this is contiguous with the colonic lumen or is actually an extraluminal collection. In either case, it was not present on the previous study. There is mild surrounding stranding suggesting inflammation adjacent to this collection. There is no evidence of bowel obstruction. The remainder of the GI tract is essentially unchanged. IMPRESSION: 1.Focal wound dehiscence at the lower portion of the laparotomy site. 2.Interval decrease in size of the extra-abdominal subcutaneous collection of fluid and gas at the inferior aspect of the laparotomy site. 3.Development of a collection of intra-abdominal stool-like material at the ventral abdominal wall to the left of midline abutting the colostomy site. It is unknown if this is contiguous with the adjacent colon or is extraluminal. However, there are inflammatory changes at its periphery and it was not present previously. 4.Otherwise, the abdomen and pelvis are essentially stable. Electronically signed by Myles Bundy 01/27/2019 1:18 PM
--- NOTE | 2019-01-27 13:44 | PROVIDER DOCUMENTATION ---
This chart was entered by Dulce Rivera Scribe, acting as scribe for Ap Ladd MD. HPI-General Adult - General Chief Complaint: Post Op Complaint Stated Complaint: bleeding from surgical site/colostomy Time Seen by Provider: 01/27/19 10:37 Source: patient Allergies/Adverse Reactions: Patient Allergies Allergy/AdvReac Type Severity Reaction Status Date / Time No Known Allergies Allergy Verified 01/27/19 11:47 Home Medications: Home Medication List Medication Instructions Recorded Confirmed Last Taken Type Clopidogrel Bisulfate [Plavix] 75 mg PO DAILY 12/12/14 01/27/19 11/04/18 History Albuterol 2.5MG/Ipratrop 0.5MG 3 ml INH Q6H PRN PRN #30 neb 10/24/15 01/27/19 12/02/18 Rx [Duoneb (A & A)] Montelukast Sodium 10 mg PO DAILY 10/24/15 01/27/19 12/02/18 History Aspirin [Aspir-Low] 81 mg PO DAILY 02/25/16 01/27/19 11/04/18 History LISINOpril [Prinivil] 5 mg PO DAILY 02/25/16 01/27/19 12/02/18 History PRAVAstatin [Pravachol] 20 mg PO DAILY 10/05/18 01/27/19 12/02/18 History Carvedilol [Coreg] 6.25 mg PO Q12H tab 12/23/18 01/27/19 Unknown Rx Furosemide [Lasix] 40 mg PO DAILY tab 12/23/18 01/27/19 Unknown Rx Magnesium Oxide [Mag-Ox] 400 mg PO DAILY tab 12/23/18 01/27/19 Unknown Rx Methimazole [Tapazole] 5 mg PO SUTUTHSA tab 12/23/18 01/27/19 Unknown Rx Methimazole [Tapazole] 10 mg PO MOWEFR tab 12/23/18 01/27/19 Unknown Rx Polyethylene Glycol 3350 [Miralax] 17 gm PO BID powder, packet 12/23/18 Unknown Rx Acetaminophen [Tylenol] 650 mg PO Q4H PRN PRN 01/27/19 01/27/19 Unknown History Ascorbic Acid 1 tab PO DAILY 01/27/19 01/27/19 Unknown History Baclofen 10 mg PO TID 01/27/19 01/27/19 Unknown History Diphenhydramine HCl 25 mg PO Q4H PRN PRN 01/27/19 01/27/19 Unknown History Ferrous Sulfate 325 mg PO DAILY 01/27/19 01/27/19 Unknown History Hydrocodone/Acetaminophen [[employer] 1 ea PO Q6H PRN PRN 01/27/19 01/27/19 Unknown History 10-325 Tablet] Lorazepam 0.5 mg PO DAILY 01/27/19 01/27/19 Unknown History Ondansetron HCl [Zofran] 4 mg PO Q6H PRN PRN 01/27/19 01/27/19 Unknown History - History of Present Illness -Gen Adult Nature of Presenting Problems: Patient is a 68 year old female who presents to the ED via EMS with a post op complaint. Patient states having a wound dehiscence 1 week ago after having a colostomy placed by Dr. Serrano. Reports being admitted. States having another wound dehiscence this morning with brown drainage. Location of Pain/Injury: reports: abdomen (generalized) Pain Radiation: reports: no radiation Quality of Pain: reports: aching Severity: reports: mild Onset/Duration: reports: this morning Timing: reports: still present Associated Symptoms: reports: fever/chills (chills), other (open wound to right of mid abdomen with drainage) Similar Symptoms Previously?: Yes Recently seen or treated by another doctor?: Yes Review of Systems - Adult - REVIEW OF SYSTEMS - ADULT Constitutional: reports: see HPI, chills. denies: fever, fatique Eyes: reports: no symptoms reported Ears, Nose, Mouth & Throat: reports: no symptoms reported Cardiovascular: reports: no symptoms reported Respiratory: reports: no symptoms reported Gastrointestinal: reports: see HPI, abdominal pain (generalized). denies: nausea, vomiting Genitourinary: reports: no symptoms reported Musculoskeletal: reports: no symptoms reported Integumentary: reports: see HPI, other (open wound to right of mid abdomen with drainage). denies: hives, rash Neurological: reports: no symptoms reported Psychiatric: reports: no symptoms reported Endocrine: reports: no symptoms reported Hematologic/Lymphatic: reports: no symptoms reported Allergic/Immunologic: reports: no symptoms reported All Other Systems: Reviewed and Negative Past History - Adult - PAST MEDICAL HISTORY-ADULT Review of Records: reports: Old Records Reviewed, Nursing Assessment Review, Medications Reviewed, Social history reviewed & non-contributory. Major Childhood Illnesses: reports: denies history Cardiovascular: reports: cardiac disease, CAD, CHF, HTN, hyperlipidemia, [place] Respiratory: reports: COPD Gastrointestinal: reports: cancer (rectal) Obstetrical/Gynecological: reports: denies history Genitourinary: reports: denies history Musculoskeletal: reports: denies history Neurological: reports: other (migraine) Psychiatric: reports: denies history Endocrine/Immune: reports: thyroid disorder Other Conditions: reports: denies history - PRIOR SURGERIES/PROCEDURES Surgical/Procedure History: reports: CABG, BTL, tonsillectomy, other (abdominal perineal resection, robot assisted [address] Serr[address]. tubal ligation, shoulder) - IMMUNIZATION STATUS Childhood Immunizations: See Nurse Assessment Flu Vaccine: See Nurse Assessment - FAMILY HISTORY Family History: reviewed, not pertinent - SOCIAL HISTORY Smoking: cigarettes (former) Substance Use: denies Physical Exam-General - PHYSICAL EXAM-ADULT Initial Vital Signs Reviewed: Yes - CONSTITUTIONAL General Appearance: alert, no apparent distress. negative: lethargic - HEAD, EARS, NOSE, MOUTH & THROAT HENMT: moist mucous membranes, dental decay. negative: angioedema - RESPIRATORY Respiratory: chest non-tender, lungs clear, normal breath sounds. negative: crackles, rhonchi - CARDIOVASCULAR Cardiovascular: regular rate, rhythm. negative: tachycardia, systolic murmur - GASTROINTESTINAL (ABDOMEN) Abdominal Exam: tenderness (diffuse), other (open packed wound to LLQ with colostomy bag present to mid abdomen; 2 cm open wound to right side of mid abdomen with brown drainage present.). negative: rigid - NEUROLOGIC Neurologic: grossly normal. negative: aphasia, facial droop - PSYCHIATRIC Psych/Mental Status: normal mood/affect, oriented x 3. negative: anxious Progress - PLAN OF CARE/RESULTS Progress/Plan/Lab Results: Vital Signs - 8 hr 01/27/19 10:40 Temperature 98.3 F Pulse Rate 91 H Respiratory Rate 19 Blood Pressure 100/68 O2 Sat by Pulse Oximetry 96 Laboratory Results - last 24 hr 01/27/19 01/27/19 11:30 11:30 WBC 9.98 RBC 3.34 L Hgb 9.2 L Hct 30.9 L MCV 92.5 MCH 27.5 MCHC 29.8 L RDW Std Deviation 15.9 H Plt Count 364 MPV 10.9 H Immature Gran % (Auto) 1.1 H Neut % (Auto) 71.9 Lymph % (Auto) 18.1 L Allen % (Auto) 8.7 Eos % (Auto) 0.0 Baso % (Auto) 0.2 Immature Gran # (Auto) 0.11 H Neut # (Auto) 7.17 H Lymph # (Auto) 1.81 Allen # (Auto) 0.87 H Eos # (Auto) 0.00 Baso # (Auto) 0.02 PT 13.6 INR 1.03 PTT (Actin FS) 29.7 Orders Category Date Time Status Cardiac Monitoring DIRECTED Care 01/27/19 11:13 Active IV Insertion ORDERED Care 01/27/19 11:13 Completed Notify MD of + Sepsis Screen NOW Care 01/27/19 11:13 Active CHEST-1 VIEW [RAD] Stat Exams 01/27/19 11:[address] ABD/PELVIS W/IV CONT ONLY [CT] Stat Exams 01/27/19 11:16 Ordered BLOOD CULTURE [BLDCUL] Stat Lab 01/27/19 11:46 Received CBC WITH DIFF [HEME] Stat Lab 01/27/19 11:30 Completed CK PROFILE [SP CHEM] Stat Lab 01/27/19 11:30 Received COMPREHENSIVE METABOLIC PANEL [CHEM] Stat Lab 01/27/19 11:30 Received LACTATE, PLASMA [CHEM] Q3H Lab 01/27/19 11:30 Received LACTATE, PLASMA [CHEM] Q3H Lab 01/27/19 14:15 Uncollected LACTATE, PLASMA [CHEM] Q3H Lab 01/27/19 17:15 Uncollected PROTIME WITH INR [COAG] Stat Lab 01/27/19 11:30 Completed PTT [COAG] Stat Lab 01/27/19 11:30 Completed TROPONIN T Stat Lab 01/27/19 11:30 Received URINALYSIS W/POSS RFLX CULT [URINALYSIS] Stat Lab 01/27/19 11:13 Uncollected 0.9% Sodium Chloride Inj [Ns] 1,000 ml Med 01/27/19 11:17 Active IV 999 mls/hr Piperacillin/Tazobactam [Zosyn] 4.5 gm Med 01/27/19 11:17 Active 0.9% Sodium Chloride Inj [Ns] 100 ml IV NOW Vancomycin 1 gm/Ns Med 01/27/19 11:17 Active 1 gm in 250 ml IV NOW Oxygen Device Stat Oth 01/27/19 11:13 Active Result Diagrams: 01/27/19 11:30 01/27/19 11:30 - XRAY 1 XRAY Study: Chest Impression: See EMR Report ( EXAM: CHEST-1 VIEW HISTORY: sepsis protocol TECHNIQUE: Single view COMPARISON: 12/31/2018 FINDINGS: The lungs are well expanded. The heart is not enlarged. There are sternal wires. The vessels are not distended. There are no infiltrates. No effusion identified. Scattered granuloma. IMPRESSION: No pneumonia Electronically signed by Wilbreto Richardson 01/27/2019 11:43 AM 01/27/19 1143 Interpreting Physician: Wilberto Richardson MD Dictated Date/Time: 01/27/19 1142 cc: Ap Ladd MD; Irma Smith MD) - CT/MRI 2 CT Study: Abdomen Impression: Abnormal ( EXAM: CT ABD/PELVIS W/IV CONT ONLY INDICATION: post-op wound infection TECHNIQUE: This exam was performed using automated exposure control, adjustment of mA or kV according to patient size, and/or use of iterative reconstruction technique. COMPARISON: 12/31/2018 FINDINGS: There is stable scarring at the right lung base. There are several stable low dense hepatic foci likely representing small cysts. The gallbladder, spleen, pancreas are unremarkable. There is stable low dense thickening of the adrenal gland suggesting underlying adenomas or hyperplasia. The kidneys and urinary bladder are unremarkable. The reproductive tract is unremarkable as imaged. At the lower portion of the laparotomy site, there is focal wound dehiscence. In the subcutaneous fat there is patchy gas and a collection of fluid that has dec reased in size during the interval. It now measures up to 5.9 x 1.4 cm axially. There is a colostomy just to the left of the umbilicus. There is a collection of stool-like material in the mesentery at the ventral abdominal wall that measures 7.1 x 3.7 cm axially (see image 102, series 2). It abuts the colostomy site. It is unclear if this is contiguous with the colonic lumen or is actually an extraluminal collection. In either case, it was not present on the previous study. There is mild surrounding stranding suggesting inflammation adjacent to this collection. There is no evidence of bowel obstruction. The remainder of the GI tract is essentially unchanged. IMPRESSION: 1.Focal wound dehiscence at the lower portion of the laparotomy site. 2.Interval decrease in size of the extra-abdominal subcutaneous collection of fluid and gas at the inferior aspect of the laparotomy site. 3.Development of a collection of intra-abdominal stool- like material at the ventral abdominal wall to the left of midline abutting the colostomy site. It is unknown if this is contiguous with the adjacent colon or is extraluminal. However, there are inflammatory changes at its periphery and it was not present previously. 4.Otherwise, the abdomen and pelvis are essentially stable. Electronically signed by Myles Bundy 01/27/2019 1:18 PM 01/27/19 1318 Interpreting Physician: Myles Bundy MD Dictated Date/Time: 01/27/19 1250 cc: Ap Ladd MD; Irma Smith MD), See EMR Report - CONSULTS/PCP/HOSPITALIST Notification #1 *Consult/PCP/Hospitalist*: Dr. Justice Time Discussed: 13:26 Reason/Comments: Dr. Ladd consulted Dr. Justice about patient. Consult Disposition: other (Dr. Justice states admit to Dr. Serrano. NPO. Dr. Justice or Dr. Serrano will see after patient is admitted.) Departure - Departure Date of Disposition Decision: 01/27/19 Time of Disposition Decision: 13:25 DIAGNOSIS: Abdominal wall abscess at site of surgical wound Wound dehiscence, surgical Qualifiers: Encounter type: initial encounter Qualified Code(s): T81.31XA - Disruption of external operation (surgical) wound, not elsewhere classified, initial encounter Disposition: ADMITTED INPATIENT 09 Certified Medical Emergency: Emergent Condition: Fair Referrals and Follow-Ups: Irma Smith MD [Primary Care Provider] - - Critical Care Note This patient required my direct & personal management of CC.: No Attestation - Physician/ MARIA G Attestation Patient care was provided by Advanced Practice Provider:: No The physician spent face to face time with patient:: Yes Advanced Practice Provider documentation review:: Supervising physician onsite and consulted in the evaluation and care of this patient. The physician did have a face to face encounter with the patient. This chart was documented by the indicated scribe, (Dulce Rivera, Nini) and accurately reflects the services I performed and decisions made by me, Ap Ladd MD, as attested by the provider's signature.
[2019-01-27] MEDS: MORPHINE IV PRN ×4 (15:10→21:20)
[2019-01-27] MEDS: ZOFRAN IV PRN (15:10)
[2019-01-27] MEDS ORDERED: BENADRYL PO PRN (17:31)
[2019-01-27] MEDS: ZOSYN 4.5 GM in NS 100 ML IV SCH ×2 (18:05→22:48)
[2019-01-27] MEDS: TAPAZOLE PO SCH (18:05)
[2019-01-27] MEDS: COREG PO SCH (18:05)
[2019-01-27] MEDS: NORCO-10 PO PRN (18:11)
[2019-01-27] MEDS: ZOFRAN PO PRN (19:16)
--- NOTE | 2019-01-27 22:03 | HISTORY AND PHYSICAL ---
CHIEF COMPLAINT: New drainage from her abdomen. HISTORY OF PRESENT ILLNESS: This is a 68-year-old female who underwent low anterior colon resection several weeks ago. She has been at rehab with a known colocutaneous fistula that had been managed with a ostomy appliance. However, she presented to the emergency room with the onset of a new wound draining foul stool-like material that began this morning. She has been complaining of some crampy abdominal pain that comes and goes. She denies fever, chills, nausea, or vomiting. She has been able to eat and her colostomy bag has been functioning. On presentation she was found to be afebrile. Her pulse however was in the low 100s. A CT scan showed worsening of fecal collection around the colostomy with some midline dehiscence and she was admitted for further evaluation. PAST MEDICAL HISTORY: Low rectal cancer, obesity, hypothyroidism, congestive heart failure, dyslipidemia, COPD, coronary artery disease. PAST SURGICAL HISTORY: Abdominoperineal resection, coronary artery bypass grafting, tonsillectomy, bilateral tubal ligation. SOCIAL HISTORY: She has history of smoking, but no alcohol or illicit drug use. She has recently been at rehab. REVIEW OF SYSTEMS: Ten systems reviewed and negative except as noted above. PHYSICAL EXAM: Reviewed and noncontributory. ALLERGIES: No known drug allergies. HOME MEDICATIONS: Aspirin, baclofen, carvedilol, Plavix, Icar C, Levaquin, lisinopril, amoxicillin, lorazepam, magnesium oxide, methimazole, pravastatin, Tylenol, DuoNeb, Benadryl, Lasix, montelukast, MiraLAX, and tramadol. PHYSICAL EXAMINATION: VITAL SIGNS: Temperature 98.5 degrees, pulse 90s to low 100s on presentation, most recently 60 at 1452. Blood pressure is 100-149 systolic. GENERAL: She is somewhat chronically ill-appearing, but in no acute distress. NEURO: She is alert oriented x4. Cranial nerves 2-12 grossly intact. HEENT: Normocephalic, atraumatic. Extraocular muscles intact. Pupils equal, round, reactive to light. Sclerae anicteric. Moist mucous membranes. NECK: Supple. No thyromegaly. CV: Regular rate and rhythm. RESPIRATORY: Bilateral breath sounds. No work of breathing. GASTROINTESTINAL: Soft, nondistended. Her left lower quadrant colostomy is pink. In the midline, there are 2 open wounds. There is a large one in the upper portion of the incision with feculent drainage. The smaller lower 1 has more bloody looking drainage. ABDOMEN: Without peritoneal sign. EXTREMITIES: No clubbing, cyanosis, or edema. SKIN: Warm and dry. No rash. MUSCULOSKELETAL: Moves all extremities equally well. LABORATORY: White blood cell count 9.9, hemoglobin 9.2, hematocrit 30.9. Electrolytes reviewed and unremarkable. IMAGING: An abdominal pelvis CT scan was reviewed and it shows a focal wound dehiscence of the lower portion of the laparotomy site. There is an interval decrease in the size of the extra abdominal subcutaneous collection of fluid and gas at the inferior aspect of the laparotomy site. However, there is a development of a new collection of intra-abdominal stool-like material at the ventral abdominal wall to the left of midline abutting the colostomy. ASSESSMENT AND PLAN: A 68-year-old female with colocutaneous fistula, which appears to be worsened since her most recent presentation. She is status post abdominoperineal resection for rectal cancer. She will be admitted and started on bowel rest. We have started her on Zosyn and Dr. Serrano will be in tomorrow to re-evaluate. There is no urgent need for surgical intervention tonight. cc: Corey Justice MD
[2019-01-28] MEDS: ZOSYN 4.5 GM in NS 100 ML IV SCH ×5 (00:03→23:24)
[2019-01-28] MEDS: NORCO-10 PO PRN ×3 (00:27→15:38)
[2019-01-28] MEDS: MORPHINE IV PRN ×5 (01:52→20:57)
[2019-01-28] MEDS: ZOFRAN IV PRN ×4 (02:25→23:24)
[2019-01-28] MEDS: ZOFRAN PO PRN (04:17)
[2019-01-28] MEDS: COREG PO SCH ×2 (05:33→17:13)
[2019-01-28] MEDS: ASPIRIN EC PO SCH (08:08)
[2019-01-28] MEDS: SINGULAIR PO SCH (08:09)
[2019-01-28] MEDS: TAPAZOLE PO SCH (08:09)
[2019-01-28] MEDS: PRINIVIL PO SCH (08:09)
[2019-01-28] MEDS: VITAMIN C PO SCH (08:09)
[2019-01-28] MEDS: LIORESAL PO SCH ×3 (08:10→17:13)
[2019-01-28] MEDS: LASIX PO SCH (08:10)
[2019-01-28] MEDS: MAG-OX PO SCH (08:10)
[2019-01-28] MEDS: FERROUS SULFATE PO SCH (08:11)
[2019-01-28] MEDS: ATIVAN PO SCH (08:39)
[2019-01-28] MEDS: LOVENOX SUBQ SCH (17:13)
[2019-01-28] MEDS: PRAVACHOL PO SCH (20:31)
[2019-01-29] MEDS: ZOSYN 4.5 GM in NS 100 ML IV SCH ×3 (06:10→18:02)
[2019-01-29] MEDS: COREG PO SCH ×2 (06:10→18:02)
[2019-01-29] MEDS: ZOFRAN IV PRN ×4 (08:04→23:55)
[2019-01-29] MEDS: NORCO-10 PO PRN ×3 (08:04→20:36)
[2019-01-29] MEDS: SINGULAIR PO SCH (08:05)
[2019-01-29] MEDS: ASPIRIN EC PO SCH (08:05)
[2019-01-29] MEDS: LASIX PO SCH (08:05)
[2019-01-29] MEDS: FERROUS SULFATE PO SCH (08:05)
[2019-01-29] MEDS: ATIVAN PO SCH (08:05)
[2019-01-29] MEDS: LIORESAL PO SCH ×3 (08:05→18:02)
[2019-01-29] MEDS: PRINIVIL PO SCH (08:05)
[2019-01-29] MEDS: VITAMIN C PO SCH (08:05)
[2019-01-29] MEDS: MAG-OX PO SCH (08:05)
--- NOTE | 2019-01-29 08:20 | GENERAL SURGERY PROGRESS NOTE ---
DATE: 01/28/2019 SUBJECTIVE: Doing okay. She is hungry. Wants to drink. No fevers. No tachycardia. White count is 9, hematocrit 30, creatinine 0.6, albumin is 2.4. Urinalysis shows moderate leukocytes. She has grown gram-positive cocci of her wound. ASSESSMENT AND PLAN: A 68-year-old female who has between her colostomy and her midline wound. Most drainage is from the colostomy and the superior wound with some more purulent drainage inferiorly. I reviewed her CT scan. Plan to observe her over the weekend with antibiotics and, depending on her progression, plan for possible colostomy revision or at least wound debridement in the operating room. Our goal has been to allow her to get further out from surgery and recover from her initial APR for a low rectal cancer. cc: Aramis Serrano MD MTDD
[2019-01-29] MEDS: DUONEB (A & A) INH PRN ×3 (09:43→19:07)
[2019-01-29] MEDS: MORPHINE IV PRN ×2 (11:23→23:55)
[2019-01-29] MEDS: LOVENOX SUBQ SCH (14:11)
[2019-01-29] MEDS: CLINIMIX E 4.25%-5% SOLUTION 1,000 ML IV SCH (14:12)
[2019-01-29] MEDS: LIPOSYN 20% 250 ML IV SCH (14:12)
[2019-01-29] MEDS: TAPAZOLE PO SCH (18:02)
[2019-01-29] MEDS: PRAVACHOL PO SCH (20:36)
[2019-01-30] MEDS: ZOSYN 4.5 GM in NS 100 ML IV SCH ×4 (00:25→18:06)
--- NOTE | 2019-01-30 03:26 | GENERAL SURGERY PROGRESS NOTE ---
DATE: 01/29/2019 SUBJECTIVE: The patient desperately wants to eat. OBJECTIVE: Vital signs: She is afebrile. Vital signs are stable. General: She is awake, alert, oriented x3. No acute distress. Gastrointestinal: Soft, appropriately tender. The fistulas are pouched without drainage at this time this morning. ASSESSMENT AND PLAN: A 68-year-old female with colocutaneous fistula. We are keeping her nothing by mouth. I will start Clinimix and lipids for nutrition. Dr. Serrano is planning possible revision or washout next week. cc: MD Aramis Kirk MD
[2019-01-30] MEDS: CLINIMIX E 4.25%-5% SOLUTION 1,000 ML IV SCH ×3 (04:50→16:06)
[2019-01-30] MEDS: COREG PO SCH ×2 (05:54→18:07)
[2019-01-30] MEDS: ZOFRAN IV PRN ×3 (05:54→18:08)
[2019-01-30] MEDS: MORPHINE IV PRN ×4 (05:54→20:46)
[2019-01-30] MEDS: PRINIVIL PO SCH (10:35)
[2019-01-30] MEDS: MAG-OX PO SCH (10:35)
[2019-01-30] MEDS: SINGULAIR PO SCH (10:35)
[2019-01-30] MEDS: VITAMIN C PO SCH (10:35)
[2019-01-30] MEDS: LASIX PO SCH (10:35)
[2019-01-30] MEDS: FERROUS SULFATE PO SCH (10:35)
[2019-01-30] MEDS: ASPIRIN EC PO SCH (10:36)
[2019-01-30] MEDS: NORCO-10 PO PRN ×2 (10:36→18:06)
[2019-01-30] MEDS: ATIVAN PO SCH (10:36)
[2019-01-30] MEDS: LIORESAL PO SCH ×3 (10:37→18:07)
[2019-01-30] MEDS: LIPOSYN 20% 250 ML IV SCH ×2 (10:42→12:28)
[2019-01-30] MEDS: DUONEB (A & A) INH PRN (10:49)
[2019-01-30] MEDS: LOVENOX SUBQ SCH (15:07)
--- NOTE | 2019-01-30 16:26 | GENERAL SURGERY PROGRESS NOTE ---
DATE: 01/30/2019 SUBJECTIVE: The patient, again, is asking for food. No new complaints. OBJECTIVE: Vital Signs: Afebrile, vital signs are stable. General: She is awake, alert, oriented x3. No acute distress. Gastrointestinal: Soft. Nondistended. Minimally tender. Her dressing is clean and dry. ASSESSMENT AND PLAN: A 68-year-old female status post abdominal perineal resection now with worsening colocutaneous fistula. We will keep her n.p.o. She is on Clinimix. Dr. Serrano will re- evaluate for operative intervention tomorrow. cc: MD Aramis Kirk MD
[2019-01-30] MEDS: TAPAZOLE PO SCH (18:07)
[2019-01-30] MEDS: PRAVACHOL PO SCH (20:47)
[2019-01-31] MEDS: NORCO-10 PO PRN ×5 (00:38→23:30)
[2019-01-31] MEDS: ZOSYN 4.5 GM in NS 100 ML IV SCH ×3 (00:41→12:07)
[2019-01-31] MEDS: ZOFRAN IV PRN ×2 (00:41→06:45)
[2019-01-31] MEDS: MORPHINE IV PRN ×6 (04:13→21:50)
[2019-01-31] MEDS: COREG PO SCH ×2 (05:25→18:17)
[2019-01-31 08:57] LABS: BASO# 0.01 X1000 (0.0-0.2); BASO% 0.2 % (0.0-0.8); EOS# 0.02 X1000 (0.0-0.7); EOS% 0.4 % (0.0-10.0); HEMATOCRIT 26.6 % (37.0-47.0); HEMOGLOBIN 7.8 g/dL (12.0-16.0); IMM GRAN# 0.21 X1000 (0.0-0.04); IMM GRAN% 4.1 % (0.0-0.5); LYMPH# 1.92 X1000 (1.2-3.4); LYMPH% 37.7 % (20.5-51.1); MCH 26.9 PG (27-31); MCHC 29.3 g/dL (33-37); MCV 91.7 FL (81-99); MONO# 0.38 X1000 (0.11-0.59); MONO% 7.5 % (1.7-9.3); NEUT# 2.55 X1000 (1.4-6.5); NEUT% 50.1 % (42.2-75.2); PLT 317 X1000 (130-400); RDW 14.9 % (11.5-14.5); WBC 5.09 X1000 (4.8-10.8)
[2019-01-31 09:01] LABS: AGAP 10; BUN 6 mg/dL (8-22); CALCIUM 7.7 mg/dL (8.8-10.2); CHLORIDE 101 mmol/L (98-107); COSMO 280; CREATININE 0.5 mg/dL (0.5-0.9); ESTIMATED GFR > 60; GLUCOSE 115 mg/dL (70-104); MAGNESIUM 1.9 mg/dL (1.5-2.7); PHOSPHORUS 2.9 mg/dL (2.7-4.5); POTASSIUM 2.6 mmol/L (3.5-5.1); SODIUM 141 mmol/L (136-145); TCO2 30 mmol/L (25-35)
[2019-01-31] MEDS: DUONEB (A & A) INH PRN ×2 (09:07→15:18)
[2019-01-31] MEDS: TAPAZOLE PO SCH (09:33)
[2019-01-31] MEDS: FERROUS SULFATE PO SCH (09:34)
[2019-01-31] MEDS: LASIX PO SCH (09:34)
[2019-01-31] MEDS: ATIVAN PO SCH (09:34)
[2019-01-31] MEDS: VITAMIN C PO SCH (09:34)
[2019-01-31] MEDS: ASPIRIN EC PO SCH (09:34)
[2019-01-31] MEDS: PRINIVIL PO SCH (09:35)
[2019-01-31] MEDS: MAG-OX PO SCH (09:35)
[2019-01-31] MEDS: SINGULAIR PO SCH (09:35)
[2019-01-31] MEDS: LIORESAL PO SCH ×3 (09:35→17:47)
[2019-01-31] MEDS: ZOFRAN PO PRN ×3 (13:06→23:30)
[2019-01-31] MEDS: LOVENOX SUBQ SCH ×2 (13:14→15:43)
--- NOTE | 2019-01-31 14:13 | GENERAL SURGERY PROGRESS NOTE ---
DATE: 01/31/2019 SUBJECTIVE: She states she feels well, says she is hungry. She has had no fevers. White count is normal at 5, stable amount of drainage. She has a pouch on her colostomy, pouch on the superior opening, and just a dressing on the inferior aspect. OBJECTIVE: Abdomen: Her abdomen is soft. Neurologic: She is alert. Cardiovascular: Normal rate. Pulmonary: No increased work of breathing. Skin: I see no cellulitis or crepitans over her abdominal wall. LABS: White count is 5, hematocrit 26, creatinine 0.5. Potassium is low at 2.6, Mag is 1.9, prealbumin is 10. ASSESSMENT AND PLAN: A 68-year-old female with colostomy to the lower midline fistula. I think she has adequate drainage through her current openings, and at this point we will allow her to optimize both physically and nutritionally prior to any attempted colostomy revision. I have talked to Dr. Barnes about antibiotics going forward. I think the tentative plan is for oral Zyvox for 2 weeks. I will see her at this 2 week juncture. We will follow her along. She will need continued nutritional support. Given the very distal nature of this fistula, I think it is reasonable to allow her to eat enterally, and avoid complications associated with total parenteral nutrition. I have discussed the plan with the patient. She understands. She is being evaluated by Physical Therapy. I am going to give her some oral potassium to help, and we will recheck this tomorrow. cc: Aramis Serrano MD
[2019-01-31] MEDS: POTASSIUM CHLORIDE 10% LIQUID PO SCH ×2 (15:41→20:43)
--- NOTE | 2019-01-31 18:02 | INFECTIOUS DISEASE PROGRESS NO ---
DATE: 01/31/2019 PRESENT ILLNESS: The patient is status post abdominoperineal resection. 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 There are 2 colocutaneous fistula sites. Culture from the pelvic abscess grew Enterococcus. MEDICATION: The patient currently is on Zosyn. PHYSICAL EXAMINATION: Vital Signs: Temperature is 97.9 degrees, pulse 88, respirations 19, blood pressure 122/70. General: This is a chronically ill-appearing elderly female. She is in no acute distress. Head/eyes/ears/nose/throat: Patient is wearing glasses and her hearing is decreased. There is no white patches in her mouth. Neck: No pain with movement. Lungs: Clear to auscultation. Cardiovascular: Heart rate is regular. Abdomen and pelvis are soft and not tender. There is an ostomy in place and 2 other drainage areas from the colocutaneous fistula. Neurologic: The patient is alert. She can move her extremities. There is no tremor. LAB/X-RAY DATA: CT scan of the abdomen and pelvis shows focal wound dehiscence at the lower portion of the laparotomy site. There is an interval decrease in size of the extraabdominal subcutaneous collection of fluid and gas at the inferior aspect of the laparotomy site. There is development of a collection of intraabdominal stool-like material at the ventral abdominal wall to the left of midline abutting the colostomy site. There are inflammatory changes at the periphery that were not there previously. The patient's CBC shows a white count of 5090, hemoglobin 7.8 and platelet count 317,000. Creatinine is 0.5. GFR is greater than 60. Chest x-ray shows no pneumonia is present. Culture from the colocutaneous fistula sites is growing enterococcus faecium. ASSESSMENT AND PLAN: The patient has a colocutaneous fistula with resulting pelvic abscess which is drained through 2 separate sites. The Enterococcus is resistant to penicillin. I placed the patient on Zyvox and patient will need to be followed closely because she already is anemic. A side effect of Zyvox namely that hematotoxicity has been explained to the patient. She agrees with treatment. COMORBIDITIES: The patient has a low rectal cancer and recently had an abdominoperineal resection. The patient also has congestive heart failure and chronic obstructive pulmonary disease and coronary artery disease. The patient has smoked cigarettes in the past also. cc: MD Aramis Rogers MD
[2019-01-31] MEDS: ZYVOX PO SCH (18:17)
[2019-01-31] MEDS: PRAVACHOL PO SCH (20:42)
[2019-02-01] MEDS: MORPHINE IV PRN ×6 (03:05→22:44)
[2019-02-01] MEDS: COREG PO SCH ×2 (05:08→17:29)
[2019-02-01] MEDS: ZYVOX PO SCH ×2 (05:08→17:30)
[2019-02-01] MEDS: ZOFRAN IV PRN (05:12)
[2019-02-01] MEDS: NORCO-10 PO PRN ×3 (05:32→17:30)
[2019-02-01] MEDS: ZOFRAN PO PRN ×3 (05:33→17:30)
[2019-02-01] MEDS: LASIX PO SCH (09:08)
[2019-02-01] MEDS: LIORESAL PO SCH ×3 (09:09→17:30)
[2019-02-01] MEDS: FERROUS SULFATE PO SCH (09:09)
[2019-02-01] MEDS: ATIVAN PO SCH (09:09)
[2019-02-01] MEDS: MAG-OX PO SCH (09:09)
[2019-02-01] MEDS: ASPIRIN EC PO SCH (09:09)
[2019-02-01] MEDS: VITAMIN C PO SCH (09:09)
[2019-02-01] MEDS: PRINIVIL PO SCH (09:09)
[2019-02-01] MEDS: SINGULAIR PO SCH (09:09)
[2019-02-01] MEDS: POTASSIUM CHLORIDE 10% LIQUID PO SCH ×2 (09:10→22:43)
[2019-02-01] MEDS: LOVENOX SUBQ SCH (14:54)
[2019-02-01] MEDS: TAPAZOLE PO SCH (17:29)
--- NOTE | 2019-02-01 19:45 | INFECTIOUS DISEASE PROGRESS NO ---
DATE: 02/01/2019 PRESENT ILLNESS: The patient is status post abdominoperineal resection for rectal cancer. The patient has developed a colocutaneous fistula which has caused a pelvic abscess and there are 2 separate areas where there is drainage from the abscess. The patient also has an ostomy in place. Culture from the pelvic abscess grew Enterococcus. MEDICATIONS: The patient yesterday started Zyvox p.o. PHYSICAL EXAMINATION: Vital Signs: Temperature is 98 degrees, pulse 78, respirations 18, blood pressure is 120/60. General: This is a chronically ill-appearing, elderly female. She is having pelvic pain now. Head/eyes/ears/nose/throat: She can see well with her glasses but her hearing is decreased. She does not have any white patches in her mouth. Neck: No pain with movement. Lungs: Clear to auscultation. Cardiovascular: Heart rate is regular. Abdomen: Abdomen and pelvis are soft. There is tenderness in the pelvic area. The patient has a functioning ostomy in place and 2 other drainage areas from the patient's colocutaneous fistula. Neurologic: Patient is alert. She can move her extremities. There is no tremor. LAB AND X-RAY: There is no new lab or x-ray for today. ASSESSMENT AND PLAN: Patient has colocutaneous fistula with resulting pelvic abscess which is being drained through 2 separate sites. The patient grew from her abscess ampicillin-resistant Enterococcus. I have placed the patient on Zyvox. I will be rechecking her CBC tomorrow and hopefully the Zyvox will not cause too much in the way of hematologic suppression. COMORBIDITIES: Patient has a low rectal cancer and she is status post abdominoperineal resection. The patient also has congestive heart failure and chronic obstructive pulmonary disease. The patient also is a cigarette smoker. The patient was a cigarette smoker in the past. cc: MD Aramis Rogers MD
[2019-02-01] MEDS: PRAVACHOL PO SCH (22:44)
--- NOTE | 2019-02-02 03:14 | GENERAL SURGERY PROGRESS NOTE ---
DATE: 02/01/2019 She is tolerating a diet. Her ostomy is functioning well. There is some drainage in the pouch from her superior fistula. Minimal purulent drainage from the inferior aspect. She says generally she does not feel quite as well today. Her abdomen is soft. There is no cellulitis of her skin. I reviewed her medications. She is on all appropriate with prophylactic Lovenox. We have repleted her potassium. I will recheck these tomorrow. Otherwise, continue nutritional support thank you end dictation. cc: Aramis Serrano MD
[2019-02-02] MEDS: NORCO-10 PO PRN ×3 (03:32→17:12)
[2019-02-02] MEDS: ZOFRAN IV PRN ×2 (03:32→14:40)
[2019-02-02] MEDS: COREG PO SCH ×2 (06:17→17:12)
[2019-02-02] MEDS: ZYVOX PO SCH ×2 (06:17→17:12)
[2019-02-02] MEDS: MORPHINE IV PRN ×3 (06:17→14:36)
[2019-02-02 06:46] LABS: BASO# 0.01 X1000 (0.0-0.2); BASO% 0.1 % (0.0-0.8); HEMATOCRIT 29.4 % (37.0-47.0); HEMOGLOBIN 8.6 g/dL (12.0-16.0); IMM GRAN# 0.19 X1000 (0.0-0.04); LYMPH# 1.84 X1000 (1.2-3.4); LYMPH% 19.7 % (20.5-51.1); MCH 27.1 PG (27-31); MCHC 29.3 g/dL (33-37); MCV 92.7 FL (81-99); MONO# 0.69 X1000 (0.11-0.59); MONO% 7.4 % (1.7-9.3); MPV 11.3 FL (7.4-10.4); NEUT# 6.62 X1000 (1.4-6.5); NEUT% 70.8 % (42.2-75.2); PLT 338 X1000 (130-400); RBC 3.17 XMIL (4.2-5.4); RDW 15.8 % (11.5-14.5); WBC 9.35 X1000 (4.8-10.8)
[2019-02-02 07:49] LABS: AGAP 11; BUN 4 mg/dL (8-22); CALCIUM 8.6 mg/dL (8.8-10.2); CHLORIDE 101 mmol/L (98-107); COSMO 275; CREATININE 0.6 mg/dL (0.5-0.9); GLUCOSE 101 mg/dL (70-104); POTASSIUM 3.9 mmol/L (3.5-5.1); SODIUM 139 mmol/L (136-145); TCO2 27 mmol/L (25-35)
[2019-02-02] MEDS: MAG-OX PO SCH (08:50)
[2019-02-02] MEDS: ATIVAN PO SCH (08:51)
[2019-02-02] MEDS: ASPIRIN EC PO SCH (08:51)
[2019-02-02] MEDS: VITAMIN C PO SCH (08:51)
[2019-02-02] MEDS: POTASSIUM CHLORIDE 10% LIQUID PO SCH (08:51)
[2019-02-02] MEDS: SINGULAIR PO SCH (08:51)
[2019-02-02] MEDS: PRINIVIL PO SCH (08:51)
[2019-02-02] MEDS: FERROUS SULFATE PO SCH (08:51)
[2019-02-02] MEDS: LIORESAL PO SCH ×2 (08:51→14:43)
[2019-02-02] MEDS: TAPAZOLE PO SCH (08:53)
[2019-02-02] MEDS: DUONEB (A & A) INH PRN (09:27)
[2019-02-02] MEDS: LASIX PO SCH (09:30)
[2019-02-02 11:41] VITALS: BP 129/60
[2019-02-02] MEDS: LOVENOX SUBQ SCH (14:43)
--- NOTE | 2019-02-02 16:11 | INFECTIOUS DISEASE PROGRESS NO ---
DATE: 02/02/2019 PRESENT ILLNESS: The patient is status post abdominoperineal resection for rectal cancer. The patient has developed a colocutaneous fistula which drains in 2 separate sites. The patient also has an ostomy in place. Culture from the colocutaneous fistula the drainage grew Enterococcus. MEDICATIONS: The patient has been on Zyvox now for 2 days. PHYSICAL EXAMINATION: Vital Signs: Temperature is 98.5 degrees, pulse 82, respirations 16, blood pressure 105/74. General: This is a chronically ill-appearing elderly female. Her pain today is much better than it was yesterday. Head/eyes/ears/nose/throat: She wears glasses. Her hearing is decreased. She has very poor oral hygiene. Many of her teeth are necrotic. Neck: No pain with movement. Lungs: Clear to auscultation. Cardiovascular: Heart rate is regular. Abdomen: Soft and pelvis soft and nontender. The patient has a functioning ostomy in place and 2 other places where drainage is coming from. Neurologic: The patient is alert. She can move her extremities. There is no tremor. LAB AND X-RAY: CBC shows a white count of 9350, hemoglobin 8.6, platelet count is 338,000. Creatinine is 0.6. GFR is greater than 60. ASSESSMENT AND PLAN: Patient has a colocutaneous fistula and she is draining from 2 separate sites. She also has an ostomy in place. Culture from the pelvic infection grew Enterococcus. My plan is to continue with Zyvox and I will be checking her CBC frequently. COMORBIDITIES: The patient had low rectal cancer and she is status post abdominoperineal resection. She also has congestive heart failure and chronic obstructive pulmonary disease. The patient also was a cigarette smoker in the past. cc: MD Aramis Rogers MD
--- NOTE | 2019-02-02 19:48 | INFECTIOUS DISEASE PROGRESS NO ---
DATE: 02/02/2019 ADDENDUM: The patient is going home today. I electronically sent a prescription for Zyvox 600 mg p.o. every 12 hours for 2 weeks. I have requested that the patient have an appointment in my office in 2 weeks and also I have called my office and asked them to have the patient get a CBC every Thursday and for 2 weeks. cc: MD Aramis Rogers MD
--- NOTE | 2019-02-03 14:54 | DISCHARGE SUMMARY ---
ADMISSION DATE: 01/27/2019 DISCHARGE DATE: 02/02/2019 ADMITTING DIAGNOSIS: Colostomy, a lower midline incision colocutaneous fistula. DISCHARGE DIAGNOSIS: Colostomy, a lower midline incision colocutaneous fistula. PROCEDURES PERFORMED: None other than a CT scan. HISTORY OF PRESENT ILLNESS: This 68-year-old female is almost 2 months out from abdominoperineal resection. A couple weeks ago, she presented with drainage, feculent, from her lower midline wound. She was found to have a colostomy in the lower midline fistula. She noted drainage from the more superior aspect and came back to the ER. HOSPITAL COURSE: She was admitted on 01/27/2019 with the above findings. She was discharged on 02/02/2019. During her hospitalization, she was initially kept NPO. Her abdominal exam remained benign. She was afebrile with a normal white count. She had well controlled drainage from the superior wound and some purulent drainage from the inferior wound. She grew enterococcus, multidrug resistant, from this wound. Our ostomy nurse worked with her, and were able pouch and protect the integrity of the skin. Her abdominal exam remained benign. Her diet was advanced. Her prealbumin was 10 and she is quite debilitated chronically with multiple medical issues. We elected to continue close observation and further maturation of the fistula before any definitive repair. On the day of her discharge, she was not tachycardic. She was in no acute distress. Her abdomen was soft. Her ostomy appliance was in place. Her perineal incision was healing well with no signs of infection or significant dehiscence, and her white count was normal. We did have to replete her electrolytes, potassium, but they were approaching normal at the time of discharge. Dr. Barnes with infectious disease was consulted. He decided on a 2 week course of Zyvox as treatment of her enterococcus growing from her wound culture. We will see her within the next 1 to 2 weeks. She was discharged home with home health for ostomy care, wound care, and physical therapy. Detailed instructions were given to the patient in written and verbal format. DISCHARGE DIET: She will continue GI soft, high protein diet. MEDICATIONS: She will resume her home medications. cc: Aramis Serrano MD
== END 2019-02-02 17:17 | disposition home health service (06) | DRG 863 ==
LOC: SUPCPDRO → ED 10:20 → 4N 14:09
PROVIDERS: ADMIT Surgery; ATTEND Surgery

== ENCOUNTER 2019-04-22 10:11 | Inpatient (IN) ==
[2019-04-22] MEDS ORDERED: ROCEPHIN 1 GM in NS 50 ML IV ONE (10:35)
--- NOTE | 2019-04-22 11:07 | PROVIDER DOCUMENTATION ---
HPI-Fever - General Chief Complaint: Shortness of Breath Stated Complaint: FEVER, SOB Time Seen by Provider: 04/22/19 10:16 Source: patient Allergies/Adverse Reactions: Patient Allergies Allergy/AdvReac Type Severity Reaction Status Date / Time No Known Allergies Allergy Verified 04/22/19 10:50 Home Medications: Home Medication List Medication Instructions Recorded Confirmed Last Taken Type Clopidogrel Bisulfate [Plavix] 75 mg PO DAILY 12/12/14 04/22/19 11/04/18 History Albuterol 2.5MG/Ipratrop 0.5MG 3 ml INH Q6H PRN PRN #30 neb 10/24/15 04/22/19 12/02/18 Rx [Duoneb (A & A)] Montelukast Sodium 10 mg PO DAILY 10/24/15 04/22/19 12/02/18 History Aspirin [Aspir-Low] 81 mg PO DAILY 02/25/16 04/22/19 11/04/18 History LISINOpril [Prinivil] 5 mg PO DAILY 02/25/16 04/22/19 12/02/18 History PRAVAstatin [Pravachol] 20 mg PO DAILY 10/05/18 04/22/19 12/02/18 History Carvedilol [Coreg] 6.25 mg PO Q12H tab 12/23/18 04/22/19 Unknown Rx Furosemide [Lasix] 40 mg PO DAILY tab 12/23/18 04/22/19 Unknown Rx Magnesium Oxide [Mag-Ox] 400 mg PO DAILY tab 12/23/18 04/22/19 Unknown Rx Methimazole [Tapazole] 5 mg PO SUTUTHSA tab 12/23/18 04/22/19 Unknown Rx Methimazole [Tapazole] 10 mg PO MOWEFR tab 12/23/18 04/22/19 Unknown Rx Polyethylene Glycol 3350 [Miralax] 17 gm PO BID powder, packet 12/23/18 04/22/19 Unknown Rx Acetaminophen [Tylenol] 650 mg PO Q4H PRN PRN 01/27/19 04/22/19 Unknown History Ascorbic Acid 1 tab PO DAILY 01/27/19 04/22/19 Unknown History Baclofen 10 mg PO TID 01/27/19 04/22/19 Unknown History Diphenhydramine HCl 25 mg PO Q4H PRN PRN 01/27/19 04/22/19 Unknown History Ferrous Sulfate 325 mg PO DAILY 01/27/19 04/22/19 Unknown History Hydrocodone/Acetaminophen [Capac 1 ea PO Q6H PRN PRN 01/27/19 04/22/19 Unknown History 10-325 Tablet] Lorazepam 0.5 mg PO DAILY 01/27/19 04/22/19 Unknown History Ondansetron HCl [Zofran] 4 mg PO Q6H PRN PRN 01/27/19 04/22/19 Unknown History - History of Present Illness-Fever Nature of Presenting Problem: Patient is a 68 yof here yesterday and diagnosed with sepsis. 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 Signed out AMA, states she has to settle things at home, and is back to be admitted. Hx CHF and COPD, on home O2, c/o SOB but denies any other complaints at this time. Review of Systems - Adult - REVIEW OF SYSTEMS - ADULT Constitutional: reports: see HPI, fever Eyes: reports: no symptoms reported Ears, Nose, Mouth & Throat: reports: no symptoms reported Cardiovascular: reports: no symptoms reported Respiratory: reports: see HPI Gastrointestinal: reports: no symptoms reported Genitourinary: reports: no symptoms reported Musculoskeletal: reports: no symptoms reported Integumentary: reports: no symptoms reported Neurological: reports: no symptoms reported Psychiatric: reports: no symptoms reported Endocrine: reports: no symptoms reported Hematologic/Lymphatic: reports: no symptoms reported Allergic/Immunologic: reports: no symptoms reported All Other Systems: Reviewed and Negative Past History - Adult - PAST MEDICAL HISTORY-ADULT Review of Records: reports: Old Records Reviewed, Nursing Assessment Review, Medications Reviewed, Social history reviewed & non-contributory. Major Childhood Illnesses: reports: denies history Cardiovascular: reports: cardiac disease, CAD, CHF, [place] Respiratory: reports: COPD Gastrointestinal: reports: denies history Obstetrical/Gynecological: reports: denies history Genitourinary: reports: denies history Musculoskeletal: reports: denies history Neurological: reports: other (migraine) Endocrine/Immune: reports: denies history Other Conditions: reports: denies history - PRIOR SURGERIES/PROCEDURES Surgical/Procedure History: reports: other (abdominal perineal resection, robot assisted [address] Maggie[address] tubal ligation, shoulder) - IMMUNIZATION STATUS Childhood Immunizations: See Nurse Assessment Flu Vaccine: See Nurse Assessment - FAMILY HISTORY Family History: reviewed, not pertinent - SOCIAL HISTORY Smoking: non-smoker Physical Exam-General - PHYSICAL EXAM-ADULT Initial Vital Signs Reviewed: Yes - CONSTITUTIONAL General Appearance: alert, no apparent distress. negative: lethargic, slow to respond - EYES Eyes: PERRL/EOMI, pink conjunctivae - HEAD, EARS, NOSE, MOUTH & THROAT HENMT: normocephalic/atraumatic, moist mucous membranes, normal ENT inspection, TMs normal, pharynx normal - NECK Neck: non-tender, full range of motion, supple, normal inspection. negative: lymphadenopathy, meningismus - RESPIRATORY Respiratory: chest non-tender, no pleuratic chest pain, no respiratory distress, no accessory muscle use, decreased breath sounds - CARDIOVASCULAR Cardiovascular: normal peripheral pulses, regular rate, rhythm, no edema, no gallop, no murmur - GASTROINTESTINAL (ABDOMEN) Abdominal Exam: normal bowel sounds, non tender, soft, other (abdominal incisions noted to lower abdomen with mild surrounding erythema) - MUSCULOSKELETAL Back Exam: normal inspection, no CVA tenderness Extremity: normal range of motion, non-tender, normal gait, normal inspection - SKIN Integumentary: normal color, warm/dry. negative: cyanosis, diaphoresis, jaundice, mottled, pallor - NEUROLOGIC Neurologic: grossly normal, no motor/sensory deficits - PSYCHIATRIC Psych/Mental Status: normal mood/affect, normal thought content, normal thought process, oriented x 3 Progress - PLAN OF CARE/RESULTS Progress/Plan/Lab Results: Vital Signs - 8 hr 04/22/19 10:18 Temperature 98.1 F Pulse Rate 107 H Respiratory Rate 20 Blood Pressure 112/53 O2 Sat by Pulse Oximetry 98 Laboratory Results - last 24 hr 04/22/19 04/22/19 04/22/19 10:36 10:36 10:36 WBC 9.90 RBC 2.86 L Hgb 7.5 L Hct 26.8 L MCV 93.7 MCH 26.2 L MCHC 28.0 L RDW Std Deviation 18.0 H Plt Count 491 H MPV 10.2 Immature Gran % (Auto) 1.2 H Neut % (Auto) 58.7 Lymph % (Auto) 32.8 Newton % (Auto) 6.7 Eos % (Auto) 0.2 Baso % (Auto) 0.4 Immature Gran # (Auto) 0.12 H Neut # (Auto) 5.81 Lymph # (Auto) 3.25 Newton # (Auto) 0.66 H Eos # (Auto) 0.02 Baso # (Auto) 0.04 PT INR PTT (Actin FS) Sodium 143 Potassium 3.6 Chloride 104 Carbon Dioxide 23 L Anion Gap 16 BUN 18 Creatinine 0.9 Estimated GFR/1.73 m2 > 60 BUN/Creatinine Ratio 20 Glucose 104 Calculated Osmolality 287 Calcium 8.6 L Magnesium 1.8 Total Bilirubin 0.16 L AST 10 ALT 11 Alkaline Phosphatase 100 Creatine Kinase 28 Troponin T High Sens Mrp-L-Nyiqiouqksh Pept Total Protein 5.6 L Albumin 3.2 L Globulin 2.4 Albumin/Globulin Ratio 1.3 Plasma Lactate 04/22/19 04/22/19 04/22/19 10:36 10:36 10:36 WBC RBC Hgb Hct MCV MCH MCHC RDW Std Deviation Plt Count MPV Immature Gran % (Auto) Neut % (Auto) Lymph % (Auto) Newton % (Auto) Eos % (Auto) Baso % (Auto) Immature Gran # (Auto) Neut # (Auto) Lymph # (Auto) Newton # (Auto) Eos # (Auto) Baso # (Auto) PT INR PTT (Actin FS) Sodium Potassium Chloride Carbon Dioxide Anion Gap BUN Creatinine Estimated GFR/1.73 m2 BUN/Creatinine Ratio Glucose Calculated Osmolality Calcium Magnesium Total Bilirubin AST ALT Alkaline Phosphatase Creatine Kinase Troponin T High Sens 16 Zcd-D-Yvkwcxispew Pept 1571 H Total Protein Albumin Globulin Albumin/Globulin Ratio Plasma Lactate 2.6 H 04/22/19 10:36 WBC RBC Hgb Hct MCV MCH MCHC RDW Std Deviation Plt Count MPV Immature Gran % (Auto) Neut % (Auto) Lymph % (Auto) Newton % (Auto) Eos % (Auto) Baso % (Auto) Immature Gran # (Auto) Neut # (Auto) Lymph # (Auto) Newton # (Auto) Eos # (Auto) Baso # (Auto) PT 12.8 INR 0.96 PTT (Actin FS) 28.4 Sodium Potassium Chloride Carbon Dioxide Anion Gap BUN Creatinine Estimated GFR/1.73 m2 BUN/Creatinine Ratio Glucose Calculated Osmolality Calcium Magnesium Total Bilirubin AST ALT Alkaline Phosphatase Creatine Kinase Troponin T High Sens Cez-Y-Argbcgxqsym Pept Total Protein Albumin Globulin Albumin/Globulin Ratio Plasma Lactate Orders Category Date Time Status Cardiac Monitoring DIRECTED Care 04/22/19 11:05 Active Nursing- Obtain EKG ONCE Care 04/22/19 11:05 Active Saline Loc NOW Care 04/22/19 10:34 Active CHEST-2 VIEWS [RAD] Stat Exams 04/22/19 11:05 Completed CBC WITH DIFF [HEME] Stat Lab 04/22/19 10:36 Completed CK PROFILE [SP CHEM] Stat Lab 04/22/19 10:36 Completed COMPREHENSIVE METABOLIC PANEL [CHEM] Stat Lab 04/22/19 10:36 Completed LACTATE, PLASMA [CHEM] Stat Lab 04/22/19 10:36 Completed MAGNESIUM [CHEM] Stat Lab 04/22/19 10:36 Completed PRO B-NATRIURETIC PEPTIDE Stat Lab 04/22/19 10:36 Completed PROTIME WITH INR [COAG] Stat Lab 04/22/19 10:36 Completed PTT [COAG] Stat Lab 04/22/19 10:36 Completed TROPONIN T HIGH SENSITIVITY Stat Lab 04/22/19 10:36 Completed UA NIMS W/REFLEX CULT [URINALYSIS] Stat Lab 04/22/19 11:05 Uncollected CefTRIAXONE [Rocephin] 1 gm Med 04/22/19 10:35 Discontinued 0.9% Sodium Chloride Inj [Ns] 50 ml IV NOW EKG [EKG] Stat Ther 04/22/19 11:05 Ordered Result Diagrams: 04/22/19 10:36 04/22/19 10:36 - REASSESSMENT Reassessment #1 Time Reassessed: 11:06 Status: other (Spoke with [facility] WORKCELL OPERATOR Daysi who did not accept admission, states pt needs to be worked up again. Orders entered.) Reassessment #2 Time Reassessed: 12:32 Status: other (Reviewed record from yesterday, positive urine culture noted. Covered with Rocephin. Pt in agreement with plan to admit. Dr. Ladd saw pt in the ED.) - XRAY 1 XRAY Study: Chest ([facility] - [address], [address], [place] [address] [facility] - [address] , [place] [address] Department of Imaging Patient: CARLOS ATKINSON Date: 04/22/19#: [id number] : 1950ADM Status: REG ERAcct#: [id number] Age/Sex: 68/FRoom/Bed: Loc: ED Ordering Physician: Karely Brooke [facility] ly Physician: Irma Smith MD Reason for Procedure: SOB Signed EXAM: CHEST-2 VIEWS 04/22/2019 HISTORY: SOB TECHNIQUE: PA and lateral chest COMMENT: There is ill-defined opacity in the left lower lobe which was less conspicuously present on 04/21/2019. Otherwise the appearance of the chest has not changed significantly. IMPRESSION: Questionable left lower lobe pneumonia Electronically signed by Rolan Hernandez 04/22/2019 11:34 AM 04/22/19 1134 Interpreting Physician: Rolan Hernandez MD Dictated Date/Time: 04/22/19 1132 cc: Karely Brooke; Irma Smith MD) - CONSULTS/PCP/HOSPITALIST Notification #1 *Consult/PCP/Hospitalist*: BIANCA Tavarez WORKCELL OPERATOR Time Discussed: 12:25 Reason/Comments: admission- LLL pne, UTI, sepsis Consult Disposition: Will see in ED, Admit Departure - Departure Date of Disposition Decision: 04/22/19 Time of Disposition Decision: 12:32 DIAGNOSIS: UTI (urinary tract infection), bacterial CHF (congestive heart failure) Qualifiers: Heart failure type: unspecified Heart failure chronicity: chronic Qualified Code(s): I50.9 - Heart failure, unspecified Pneumonia Qualifiers: Pneumonia type: due to unspecified organism Laterality: left Lung location: lower lobe of lung Qualified Code(s): J18.1 - Lobar pneumonia, unspecified organism Anemia Qualifiers: Anemia type: unspecified type Qualified Code(s): D64.9 - Anemia, unspecified Sepsis Qualifiers: Sepsis type: sepsis due to unspecified organism Sepsis acute organ dysfunction status: unspecified Qualified Code(s): A41.9 - Sepsis, unspecified organism Disposition: ADMITTED INPATIENT 09 Certified Medical Emergency: Emergent Condition: Stable Referrals and Follow-Ups: Irma Smith MD [Primary Care Provider] - - Critical Care Note This patient required my direct & personal management of CC.: No Attestation - Physician/ MARIA G Attestation Patient care was provided by Advanced Practice Provider:: Yes Advanced Practice Provider:: Karely Brooke Advanced Practice Provider documentation review:: The Mid-level provider documentation, treatment plan and medical decision making was reviewed by the physician who agrees with all treatment and medical decision making by the MLP. The physician spent face to face time with patient:: Yes (Dr. Ladd) Advanced Practice Provider documentation review:: Supervising physician onsite and consulted in the evaluation and care of this patient. The physician did have a face to face encounter with the patient.
[2019-04-22 11:21] LABS: BASO# 0.04 X1000 (0.0-0.2); BASO% 0.4 % (0.0-0.8); EOS# 0.02 X1000 (0.0-0.7); EOS% 0.2 % (0.0-10.0); HEMATOCRIT 26.8 % (37.0-47.0); HEMOGLOBIN 7.5 g/dL (12.0-16.0); IMM GRAN# 0.12 X1000 (0.0-0.04); IMM GRAN% 1.2 % (0.0-0.5); LYMPH# 3.25 X1000 (1.2-3.4); LYMPH% 32.8 % (20.5-51.1); MCH 26.2 PG (27-31); MCV 93.7 FL (81-99); MONO# 0.66 X1000 (0.11-0.59); MONO% 6.7 % (1.7-9.3); MPV 10.2 FL (7.4-10.4); NEUT# 5.81 X1000 (1.4-6.5); NEUT% 58.7 % (42.2-75.2); PLT 491 X1000 (130-400); RBC 2.86 XMIL (4.2-5.4)
[2019-04-22 11:36] LABS: INR 0.96; PROTIME 12.8 Seconds (11.0-16.0)
--- NOTE | 2019-04-22 11:36 | Diag Imaging Result Doc PS360 ---
EXAM: CHEST-2 VIEWS 04/22/2019 HISTORY: SOB TECHNIQUE: PA and lateral chest COMMENT: There is ill-defined opacity in the left lower lobe which was less conspicuously present on 04/21/2019. Otherwise the appearance of the chest has not changed significantly. IMPRESSION: Questionable left lower lobe pneumonia Electronically signed by Rolan Hernandez 04/22/2019 11:34 AM
[2019-04-22 11:37] LABS: PTT 28.4 Seconds (22.3-41.8)
[2019-04-22 11:51] LABS: AGAP 16; ALB/GLOB RATIO 1.3; ALBUMIN 3.2 g/dL (3.5-5.0); ALKALINE PHOSPHATASE 100 U/L (32-104); BUN 18 mg/dL (8-22); CALCIUM 8.6 mg/dL (8.8-10.2); CHLORIDE 104 mmol/L (98-107); COSMO 287; CREATININE 0.9 mg/dL (0.5-0.9); ESTIMATED GFR > 60; GLUCOSE 104 mg/dL (70-104); GOT 10 U/L (10-30); GPT 11 U/L (10-36); MAGNESIUM 1.8 mg/dL (1.5-2.7); POTASSIUM 3.6 mmol/L (3.5-5.1); SODIUM 143 mmol/L (136-145); TCO2 23 mmol/L (25-35); TOTAL BILIRUBIN 0.16 mg/dL (0.20-1.00); TOTAL PROTEIN 5.6 g/dL (6.3-8.3)
[2019-04-22] MEDS ORDERED: NS 1,000 ML IV ONE ×3 (12:46→13:04)
[2019-04-22] MEDS ORDERED: LEVAQUIN 500 MG/D5W 500 MG/100 ML IVPB IV SCH (13:04)
[2019-04-22] MEDS ORDERED: ZOFRAN IV PRN (13:04)
[2019-04-22] MEDS ORDERED: TYLENOL PO PRN (13:04)
[2019-04-22 13:42] LABS: IRON SATURATION 10 %; TIBC 215 ug/dL; TOTAL IRON 22 ug/dL (49-151); UNBOUND IRON 193 ug/dL (112-346)
[2019-04-22 14:03] LABS: URINE SOURCE CLEAN CATCH
[2019-04-22 14:08] LABS: BILIRUBIN URINE NEGATIVE (NEGATIVE); BLOOD URINE NEGATIVE (NEGATIVE); COLOR STRAW; GLUCOSE URINE NEGATIVE (NEGATIVE); KETONE URINE NEGATIVE (NEGATIVE); LEUKOCYTES URINE NEGATIVE (NEGATIVE); NITRITE URINE NEGATIVE (NEGATIVE); PROTEIN URINE NEGATIVE (NEGATIVE); SP GRAVITY URINE 1.009; TURBIDITY URINE CLEAR (CLEAR); UR EPITHELIAL CELLS <10 /HPF (<10); URINE BACTERIA NEGATIVE /HPF; URINE RBC <10 /HPF (<10); URINE WBC <10 /HPF (<10); UROBILINOGEN URINE NORMAL (NORMAL)
[2019-04-22 14:23] LABS: FERRITIN 169 ng/mL (13-150)
[2019-04-22] MEDS: DUONEB (A & A) INH SCH ×3 (15:32→22:50)
[2019-04-22] MEDS: MAXIPIME 1 GM in NS 50 ML IV SCH (15:55)
[2019-04-22] MEDS: SODIUM CHLORIDE 0.9% INJ SCH (15:55)
[2019-04-22] MEDS: PROTONIX IV SCH (15:55)
[2019-04-22] MEDS: ZYVOX 600 MG/D5W 600 MG/300 ML IVPB IV SCH (16:41)
--- NOTE | 2019-04-22 17:28 | HISTORY AND PHYSICAL ---
PRIMARY CARE PROVIDER: Dr. Irma Smith. Oncologist is Dr. Leigh Young. General surgeon Dr. Oir Serrano. CHIEF COMPLAINT: The patient was here yesterday, left AMA, was found to be septic. However, her initial complaint was dizziness. HISTORY OF PRESENT ILLNESS: Ms. Suarez is a 68-year-old female who carries a past medical history of coronary artery disease status post CABG, COPD, dyslipidemia, congestive heart failure, hyperthyroidism, morbid obesity, rectal cancer, followed by Dr. Serrano, Dr. Rice and Dr. Leigh Young. She had a robotic assisted laparoscopic abdominoperitoneal resection where she had a rectal polyp and invasive carcinoma at the base of the polyp, but no evidence of metastatic disease. Since that time, she has had some incisional wound dehiscence with oozing. She reported to the ED yesterday and complains of dizziness in the bathroom yesterday morning. She reported she almost fell out at Dr. Young's office yesterday. She came to the ED to be evaluated. She screened in for sepsis, was given IV Zosyn. However, the patient left AMA secondary to needing to get things in order for her house and said she would come back later that night. She reports she did come back last night, but there were too many people in the ER and she did not feel like waiting so she came back this a.m. Workup from yesterday: Her urine cultures are growing gram- negative rods. Chest x-ray showed a questionable left lower lobe pneumonia. She reports coughing up some milky white substance. She is always short of breath. She reports no more dizziness, fever, chills, nausea, vomiting, diarrhea. Has not noted any dark tarry or bright red blood coming from her colostomy or from her reported 3 other incisional sites that have "busted open" that has a green stool coming out that she also covers with a colostomy bag as well. She denies any dysuria, but she does report some hesitancy. No foul odor. She ruled in for sepsis again with a lactate of 2.7. We will give her a 2 L bolus. She was given IV Rocephin. We will continue to monitor her cultures from yesterday and we have switched her antibiotics to Zyvox and Levaquin given her most recent micros. Will continue with further evaluation and treatment. PAST MEDICAL HISTORY: Per HPI. PAST SURGICAL HISTORY: Robotic assisted laparoscopic abdominoperitoneal resection with colostomy by Dr. Ori Serrano, CABG, tonsillectomy, tubal ligation. SOCIAL HISTORY: Former smoker has not smoked since 2010. Denies any vaping. No alcohol. No illicit drugs. She currently lives with a boyfriend. ALLERGIES: No known drug allergies. MEDICATIONS: Home medications are being compiled. PHYSICAL EXAMINATION: VITAL SIGNS: Temperature is 98.1 degrees, heart rate 107, respirations 20, blood pressure 112/53, O2 is 98% on room air. GENERAL: Ms. Suarez is a 68-year-old female who looks pale in appearance. However, she is sitting up in the bed cross-legged in no acute distress. HEENT: Atraumatic, normocephalic. PERRL. Very poor dentition. NECK: Supple. Trachea midline. CARDIOVASCULAR: S1, S2 appreciated. No murmurs, gallops, rubs noted. bilateral pedal pulses are palpable. No signs of clubbing, no cyanosis. She does have 1+ pitting edema. RESPIRATORY: Lung sounds decreased entry bilaterally. Did not appreciate any rales, rhonchi, wheezes, or crackles. ABDOMEN: Soft, nontender, nondistended. Two colostomy bags are noted, 1 over her colostomy site as well as one over her 3 holes from her previous wound dehiscence. Both have green stool coming out of them. Did not appreciate any bright red or dark tarry stools. Could not really assess her stoma secondary to her colostomy being quite full with green stool. NEUROLOGIC: No focal deficits noted. DIAGNOSTIC DATA: Chest x-ray showed questionable left lower lobe pneumonia. LABORATORY DATA: White count is 9, hemoglobin 7.5 and hematocrit 26, platelet count is 491,000. Sodium 143, potassium 3.6, BUN 18, creatinine 0.9, blood glucose is 104. ProBNP was 1571. Albumin was 3.2. Plasma lactate was 2.6. ASSESSMENT AND PLAN: 1. Sepsis. Patient will be given 2 L fluid bolus. She was given Rocephin in the ED. We will also change her antibiotics based off her last cultures to Zyvox and Levaquin. Continue with aggressive IV hydration. 2. Symptomatic anemia. Will check iron studies and stool for occult blood. Hemodynamically, she is currently stable. She reports no more dizzy episodes besides the 2 that she had yesterday. We will type and screen. 3. Rectal cancer status post robotic assisted laparoscopic abdominoperitoneal resection and colostomy done by Dr. Serrano. She reports a wound dehiscence that does have active stool coming out of them that she reports it is known. 4. Coronary artery disease status post coronary artery bypass graft. Denies any chest pain. 5. Chronic obstructive pulmonary disease, does not appear to be any exacerbation. 6. Dyslipidemia. 7. Congestive heart failure history. We will watch her fluid status closely. She does have some 1+ pitting edema to her lower extremities. However, she does not appear to be in congestive heart failure. 8. Possible left lower lobe pneumonia. Will start IV antibiotic therapy. Will check a procalcitonin level. 9. Further recommendation to follow physician evaluation, laboratory and diagnostic data. Dictated by SILVERIO Duvall for Leigh Ann Quijano MD cc: MD Irma Stapleton MD Heather Shah, MD R. Tyler Harney, MD Amit Arora, MD I performed a face to face encounter on the patient. I reviewed all labs and imaging on the patient. I agree with the H&P as dictated. [facility] HOSPITAL[facility]ari
[2019-04-22] MEDS: NORCO-10 PO PRN (21:08)
[2019-04-22] MEDS ORDERED: NS 1,000 ML IV SCH (23:45)
[2019-04-23] MEDS: ZYVOX 600 MG/D5W 600 MG/300 ML IVPB IV SCH ×2 (01:29→15:13)
[2019-04-23] MEDS: PROTONIX IV SCH (01:29)
[2019-04-23] MEDS: SODIUM CHLORIDE 0.9% INJ SCH (01:29)
[2019-04-23] MEDS: DUONEB (A & A) INH SCH ×6 (03:40→23:10)
[2019-04-23] MEDS: MAXIPIME 1 GM in NS 50 ML IV SCH ×2 (03:40→15:13)
[2019-04-23 06:21] LABS: ALLEN TEST YES; BE -2.3 mmoll (-3.0-3.0); BLOOD TYPE ARTERIAL; HCO3-(ACT) 23.2 mmoll (20.0-26.0); METHB 0.6 % (0.0-1.5); MODALITY CANNULA; O2(CT) 9.9 mL/dL (15.0-23.0); O2HB 97.4 % (95.0-99.0); PCO2(98.6) 36 mmHg (35-45); PO2(98.6) 130 mmHg (60-100); SAMPLE BLOOD; SAO2 99.7 % (95.0-100.0)
--- NOTE | 2019-04-23 07:10 | Diag Imaging Result Doc PS360 ---
EXAM: CHEST-1 VIEW 04/23/2019 HISTORY: dyspnea TECHNIQUE: AP portable at 0602 COMMENT: There is a granuloma present in the right upper lobe. The inspiration is suboptimal. Compared to 04/22/2019 there has been no significant change. IMPRESSION: Stable chest. Electronically signed by Rolan Hernandez 04/23/2019 7:08 AM
[2019-04-23] MEDS ORDERED: NS 1,000 ML IV SCH (08:00)
[2019-04-23 08:03] LABS: BASO# 0.03 X1000 (0.0-0.2); BASO% 0.5 % (0.0-0.8); EOS# 0.03 X1000 (0.0-0.7); EOS% 0.5 % (0.0-10.0); HEMATOCRIT 22.1 % (37.0-47.0); HEMOGLOBIN 6.2 g/dL (12.0-16.0); IMM GRAN# 0.13 X1000 (0.0-0.04); LYMPH# 2.67 X1000 (1.2-3.4); LYMPH% 40.6 % (20.5-51.1); MCH 26.3 PG (27-31); MCHC 28.1 g/dL (33-37); MCV 93.6 FL (81-99); MONO# 0.47 X1000 (0.11-0.59); MONO% 7.2 % (1.7-9.3); NEUT# 3.24 X1000 (1.4-6.5); NEUT% 49.2 % (42.2-75.2); PLT 361 X1000 (130-400); RBC 2.36 XMIL (4.2-5.4); RDW 18.2 % (11.5-14.5); WBC 6.57 X1000 (4.8-10.8)
[2019-04-23 08:44] LABS: AGAP 12; BUN 9 mg/dL (8-22); CHLORIDE 106 mmol/L (98-107); COSMO 278; CREATININE 0.6 mg/dL (0.5-0.9); ESTIMATED GFR > 60; GLUCOSE 104 mg/dL (70-104); POTASSIUM 2.6 mmol/L (3.5-5.1); SODIUM 140 mmol/L (136-145); TCO2 22 mmol/L (25-35)
[2019-04-23] MEDS ORDERED: KLOR-CON PO ONE (08:55)
[2019-04-23] MEDS ORDERED: NS 500 ML IV ONE (08:56)
[2019-04-23] MEDS ORDERED: MAGNESIUM SULFATE 2 GM/S.W.I. 2 GM/50 ML IVPB IV ONE (09:25)
[2019-04-23] MEDS: FOLIC ACID PO SCH (09:54)
[2019-04-23] MEDS: NORCO-10 PO PRN ×3 (09:55→22:21)
--- NOTE | 2019-04-23 15:08 | PROGRESS NOTE ---
DATE: 04/23/2019 SUBJECTIVE: The patient states that she feels okay today. She states that she has to be discharged home by Thursday to keep her pain management appointment. OBJECTIVE: Vital Signs: Temperature 97.7 degrees, blood pressure 102/46, heart rate 97, respirations 15, O2 saturation 99% on 2 L nasal cannula. General: This is a chronically ill- appearing elderly female sitting at the edge of the bed in no acute distress. Heart: S1, S2 normal regular rate and rhythm. Lungs: Equal air entry bilaterally. Diminished breath sounds at the bases. Abdomen: There is a colostomy bag over the colostomy site as well as a colostomy bag over the wound dehiscence site. Neurologic: The patient is alert and oriented x3. LABS: White blood cell count 6.5, hemoglobin 6.2, hematocrit 22, platelets 361,000, sodium 140, potassium 2.6, chloride 106, CO2 22, BUN 9, creatinine 0.6, glucose 104, mag 1.8. Occult blood positive. ASSESSMENT AND PLAN: 1. Sepsis. Likely secondary to pneumonia. The patient is on broad-spectrum antibiotics. 2. Pneumonia. Continue with broad-spectrum antibiotics, bronchodilator therapy, and supplemental oxygen. 3. Suspected GI bleed. The stool for occult blood was positive and the patient's hemoglobin and hematocrit has dropped considerably since yesterday. We will transfuse 2 units of packed red blood cells and consult with GI. 4. Status post robotic assisted laparoscopic abdominoperitoneal resection with colostomy. Aware. We will consult with wound care. 5. Colocutaneous fistula. Aware. 6. Coronary artery disease status post coronary artery bypass graft. Continue on the current cardiac medications. 7. Chronic obstructive pulmonary disease. Stable. 8. Hypokalemia. We will replace the patient's potassium. 9. Chronic systolic congestive heart failure. Aware. 10. Deep vein thrombosis prophylaxis. Continue with SCDs. cc: Leigh Ann Quijano MD MTDD
--- NOTE | 2019-04-23 16:15 | GASTROENTEROLOGY CONSULTATION ---
DATE: 04/23/2019 REASON FOR CONSULT: Symptomatic anemia. HISTORY OF PRESENT ILLNESS: Ms. Suarez is a 68-year-old female who presented to the ER yesterday with dizziness, weakness, shortness of breath, fever, chills, nausea, but no vomiting and abdominal pain rating it as 6/10 just near her colostomy bag and described as a sudden pain that comes and goes. The patient was also in the ER 2 days ago for dizziness and passing out in the shower. The patient was seen by Dr. Malcolm who performed a colonoscopy on 10/20/2018 where he found out that she had some sessile polyps 3 cm in size and some internal hemorrhoids. Biopsies were taken. The patient does have a history of colon cancer, which was detected in November, and she had a surgery done.The patient had a robotic assisted laparoscopic abdominoperitoneal resection done. Her colon was taken out. She does have a colostomy on her left quadrant. Patient has history of coronary artery disease status post CABG, COPD, hyperlipidemia, congestive heart failure, hypothyroidism, morbid obesity, rectal cancer. The patient has mentioned that one of her wounds on the left lower quadrant is still oozing and she has a dressing on it. The patient does have a history of leaving AMA, she gives excuses that she has some things at home that she needs to take care. At this time also she was saying that she cannot wait till Thursday because she has an appointment with the pain doctor who does not reschedule her appointments and she needs to go home on Thursday. Due to her COPD, she is on 2 L oxygen via nasal cannula at home. The patient's hemoglobin on admission was 7.5 and 26.8 today it is 6.2 and 22.1. The patient has orders to transfuse 2 units of packed red blood cells. The patient has denied noticing dark tarry stools or any blood in her colostomy. PAST MEDICAL HISTORY: Coronary artery disease status post CABG, COPD, hyperlipidemia, congestive heart failure, hypothyroidism, morbid obesity, rectal cancer. PAST SURGICAL HISTORY: Robotic assisted laparoscopic abdominal peritoneal resection with colostomy, CABG, tonsillectomy, and tubal ligation. SOCIAL HISTORY: Currently single, former smoker, who denies any alcohol or illicit drugs. ALLERGIES: No known drug allergies. FAMILY HISTORY: No significant GI malignancies. HOME MEDICATIONS: Plavix 75 mg p.o. daily, montelukast sodium 10 mg p.o. daily, albuterol 3 mL inhaler every 6 hours as needed, lisinopril 5 mg p.o. daily, aspirin 81 mg p.o. bedtime, pravastatin 20 mg daily, Lasix 40 mg p.o. daily, magnesium oxide 400 mg p.o. daily, MiraLAX 17 grams p.o. daily, methimazole 5 mg p.o. as directed, ascorbic acid 500 mg 1 tablet p.o. daily, baclofen 10 mg p.o. 3 times a day, diphenhydramine HCL 25 mg p.o. every 4 hours as needed, Zofran 4 mg p.o. every 6 hours as needed, ferrous sulfate 325 mg p.o. daily, lorazepam 0.5 mg p.o. daily, hydrocodone 1 tablet every 6 hours as needed, acetaminophen 625 mg p.o. every 4 hours as needed, amitriptyline 50 mg p.o. at bedtime, vitamin B12 1000 mcg 1 mL IM, torsemide 20 mg p.o. twice a day, atorvastatin calcium 20 mg p.o. at bedtime, citalopram 20 mg p.o. at bedtime, metoprolol tartrate 100 mg p.o. twice a day. REVIEW OF SYSTEMS: As per HPI. Otherwise, 12 point review of system is negative. PHYSICAL EXAMINATION: Vital Signs: Temperature 98.0, pulse 113, respirations 17, blood pressure 114/47, oxygen saturation 100% on 2 L nasal cannula. Her weight is 168 pounds. BMI is 29.8 kg/m2. General: She is alert, oriented x3. Answering questions appropriately and in no acute distress. HEENT: Pale conjunctivae. No icterus. PERRL. Neck: Supple. Lungs: Clear to auscultation. Cardiovascular: The patient is tachycardic. Abdomen: Soft, obese. Colostomy bag on the left quadrant. Dressing on the right lower quadrant. Active bowel sounds heard in all 4 quadrants. Extremities: No clubbing, no cyanosis, no edema. Pedal pulses 2+ present bilaterally. Neurologic: She is alert, oriented. Currently nonfocal. Cranial nerves 2-12 grossly intact. LABS: WBC is a is 6.57, RBC 2.36, hemoglobin 6.2, hematocrit 22.1, platelet count is 361,000. Sodium 140, potassium 2.6, chloride 106, carbon dioxide 22, anion gap 12, BUN 9, creatinine 0.6, glucose 104, calcium 8.0, magnesium 1.8, plasma lactate 3.3. Urinalysis was negative. IMAGING: Chest x-ray yesterday showed questionable left lower lobe pneumonia. Chest x-ray today showed stable chest. IMPRESSION AND PLAN: Anemia Hypokalemia Left lower lobe pneumonia Sepsis Rectal cancer s/p surgery with colostomy CAD s/p CABG CHF PLAN: Ms. Suarez is a 68-year-old female with a history of colon cancer status post surgery with colostomy bag on the left quadrant. GI has been consulted for the symptomatic anemia. The patient's hemoglobin and hematocrit today are 6.2 and 22. The patient has orders to transfuse 2 units of blood. She is currently on PPIs daily. The patient is also receiving folic acid. She is on antibiotic, Zyvox and Maxipime for her pneumonia. We have discussed with patient that in order to do any procedure we would like her Hemoglobin to be between 7 to 8 g/dl and we will be monitoring her H &H and it will be until Thursday that we decide to do any procedures. Patient mentioned that she needs to go home on Thursday, she has an appointment with the pain doctor and he does not reschedule the appointments. We will continue to monitor the patient's H &H and transfuse PRBC's as per protocol with the goal of Hemoglobin between 7 to 8 g/dl. and follow the plan of care per PCP. This plan was discussed with Dr. Godwin. Thank you for your consult. Please call us for any further questions or concerns. Dictated by SILVERIO Dasilva for Shelia Godwin MD cc: Shelia Godwin MD [facility]ENTER[facility]ari
[2019-04-24] MEDS: MAXIPIME 1 GM in NS 50 ML IV SCH ×2 (03:18→15:17)
[2019-04-24] MEDS: ZYVOX 600 MG/D5W 600 MG/300 ML IVPB IV SCH ×2 (03:19→13:01)
[2019-04-24] MEDS: DUONEB (A & A) INH SCH ×4 (04:40→16:20)
[2019-04-24] MEDS: NORCO-10 PO PRN ×3 (05:10→20:14)
[2019-04-24] MEDS: SODIUM CHLORIDE 0.9% INJ SCH ×2 (06:14→20:10)
[2019-04-24] MEDS ORDERED: PROTONIX IV SCH (07:00)
[2019-04-24 08:18] LABS: BASO# 0.03 X1000 (0.0-0.2); BASO% 0.3 % (0.0-0.8); EOS# 0.02 X1000 (0.0-0.7); EOS% 0.2 % (0.0-10.0); HEMATOCRIT 31.9 % (37.0-47.0); HEMOGLOBIN 9.6 g/dL (12.0-16.0); LYMPH# 3.21 X1000 (1.2-3.4); LYMPH% 30.5 % (20.5-51.1); MCH 27.7 PG (27-31); MCHC 30.1 g/dL (33-37); MCV 92.2 FL (81-99); MONO# 0.76 X1000 (0.11-0.59); MONO% 7.2 % (1.7-9.3); MPV 10.1 FL (7.4-10.4); NEUT% 60.8 % (42.2-75.2); PLT 384 X1000 (130-400); RBC 3.46 XMIL (4.2-5.4); RDW 17.4 % (11.5-14.5); WBC 10.52 X1000 (4.8-10.8)
[2019-04-24 08:41] LABS: AGAP 16; BUN 5 mg/dL (8-22); CALCIUM 8.6 mg/dL (8.8-10.2); CHLORIDE 103 mmol/L (98-107); COSMO 277; CREATININE 0.7 mg/dL (0.5-0.9); ESTIMATED GFR > 60; GLUCOSE 98 mg/dL (70-104); POTASSIUM 3.5 mmol/L (3.5-5.1); SODIUM 140 mmol/L (136-145); TCO2 21 mmol/L (25-35)
[2019-04-24] MEDS: FOLIC ACID PO SCH (10:07)
[2019-04-24] MEDS ORDERED: GAMUNEX-C 10% IV ONE (11:00)
--- NOTE | 2019-04-24 15:13 | GASTROENTEROLOGY PROGRESS NOTE ---
DATE: 04/24/2019 SUBJECTIVE: Ms. Suarez is a 68-year-old female. She was resting in bed. The patient mentioned feeling much better today. Patient wants to go home on Thursday, she has an appointment with the pain doctor and does not know what to do. OBJECTIVE: Vital Signs: Temperature 97.9 degrees, pulse 121, respirations 17, blood pressure 106/40, oxygen saturation 99% on 2 L nasal cannula. The patient's weight is 175 pounds. BMI is 31.0 kg/m2. General: She is alert, oriented x3, and in no acute distress. HEENT: Pale conjunctivae. No icterus. PERRL. Neck: Supple. Lungs: Clear to auscultation. Cardiovascular: The patient is tachycardic. Abdomen: Soft, obese. Colostomy bag on the left quadrant. Has ostomy bag on the fistula next to the colostomy. Dressing on the right lower quadrant. Active bowel sounds heard in all 4 quadrants. Extremities: No clubbing. No cyanosis. No edema. Pedal pulses 2+, present bilaterally. Neurologic: She is alert, oriented x3. LABORATORY DATA: WBCs are 10.52, RBC 3.46, hemoglobin 9.6, hematocrit is 31.9, platelet count is 384,000. Sodium is 130, potassium is 3.5, chloride is 103, carbon dioxide 21, anion gap 16, BUN 5, creatinine is 0.7, glucose is 98, calcium is 8.6. IMAGING: Patient's chest x-ray yesterday showed stable chest. IMPRESSION AND PLAN: 1. Anemia. 2. Left lower lobe pneumonia. 3. Sepsis. 4. Rectal cancer s/p surgery with colostomy. 5. Coronary artery disease s/p CABG 6. Congestive heart failure. 7. Wound Dehiscence with ostomy bag PLAN: Ms. Suarez is a 68-year-old female with a history of colon cancer status post surgery with colostomy bag on the left quadrant. GI is following her for symptomatic anemia. The patient's hemoglobin and hematocrit today are 9.6 and 31.9. It has been trending upwards. The patient has so far received 2 units of blood. The patient is currently on PPIs daily. She is receiving antibiotic, Maxipime and Zyvox for her pneumonia and sepsis. We have discussed that the need to do the procedure to find out the cause of her anemia, but patient is not sure whether she wants to stay in the hospital on Thursday. She will let us know after she talks to her pain clinic doctor whether she wants to go ahead with the procedure or she wants to do it as an outpatient. We will continue to monitor the patient and follow the plan of care per PCP. This plan was discussed with Dr. Godwin. Please call us for any further questions or concerns. Dictated by SILVERIO Dasilva for Shelia Godwin MD cc: Shelia Godwin MD MTDD
[2019-04-24] MEDS ORDERED: NS NEB INH SCH (18:30)
--- NOTE | 2019-04-24 18:39 | PROGRESS NOTE ---
DATE: 04/24/2019 SUBJECTIVE: The patient is resting comfortably in bed. She states that she feels okay. She wants to go home tomorrow. OBJECTIVE: Vital Signs: Temperature 98.7 degrees, blood pressure 88/47, heart rate 106, respirations 17, O2 saturation 98% on 3 L nasal cannula. General: This is a chronically ill- appearing elderly female lying in bed in no acute distress. Heart: S1, S2 normal, tachycardic. Lungs: Equal air entry bilaterally. No wheezing. Abdomen: Positive bowel sounds. The patient has 2 colostomy bags that are attached. Extremities: 1+ edema bilaterally. Neuro: The patient is alert and oriented x3. LABS: White blood cell count 10, hemoglobin 9.6, hematocrit 31, platelets 384,000. Sodium 140, potassium 3.5, chloride 103, CO2 21, BUN 5, creatinine 0.7, glucose 98. ASSESSMENT AND PLAN: 1. Acute on chronic hypoxemic respiratory failure. Aware. 2. Pneumonia. Continue with antibiotics, bronchodilator therapy and supplemental oxygen. 3. Sepsis secondary to pneumonia. Continue to treat the underlying infection. 4. Gastrointestinal bleed. The patient's hemoglobin and hematocrit are improved after receiving 2 units of packed red blood cells. Gastroenterology is following for endoscopy during this hospital stay. The patient has been having episodes of bleeding into her colostomy bag. 5. Status post robotic assisted laparoscopic abdominoperitoneal resection with colostomy. Aware. Wound care has been consulted. 6. Colocutaneous fistula. Aware. 7. Chronic obstructive pulmonary disease. Stable. 8. Hypothyroidism. Continue on Synthroid. 9. Coronary artery disease status post coronary artery bypass graft. Continue on current cardiac medications. 10. Anemia of acute blood loss. Improved. The patient received 2 units of packed red blood cells yesterday. Continue to monitor the hemoglobin and hematocrit closely. 11. Deep vein thrombosis prophylaxis. Continue with SCDs. cc: Leigh Ann Quijano MD MTDD
--- NOTE | 2019-04-24 19:37 | Diag Imaging Result Doc PS360 ---
EXAM: CT THORAX/ABD/PELVIS W/CON 04/24/2019 HISTORY: pneumonia/colocutaneous fistula TECHNIQUE: This exam was performed using automated exposure control, adjustment of mA or kV according to patient size, and/or use of iterative reconstruction technique. COMMENT: Thorax: The current study is compared with the previous examination of 05/19/2018. There are atherosclerotic calcifications in the thoracic aorta. There are no filling defects in the pulmonary arteries. There is no evidence of significant adenopathy. There is extensive atherosclerotic calcification in the coronary arteries. There are small bilateral pleural effusions. There is a fairly large hiatal hernia. There is severe COPD. There are some platelike opacities in both lung bases. The medial opacity in the costophrenic sulcus on the right has not changed since the previous study and is likely fibrotic. There are degenerative disc changes in the thoracic spine. There has been sternotomy. ABDOMEN: There are multiple cysts present in the liver. This was also the case at the time the previous study of 03/10/2019. There is calcification in the abdominal aorta. There is no evidence of aneurysm and the mesenteric and renal arteries are patent. There is no evidence of cholelithiasis. There are arterial calcifications present in the kidneys without evidence of nephrolithiasis or hydronephrosis. There is some nodularity of the adrenal glands which has not changed since the previous study or since the thoracic CT of 05/19/2018. This is likely due to hyperplasia. The pancreas is stable in appearance. There is a fair amount of liquid stool throughout the colon. There is a descending colostomy. There is a fluid collection which appears to be connected to the segment of descending colon just inside of the fascia which extends to the skin to the right of the ostomy in or near the umbilicus. There may actually be two separate tracts one above the other. The small bowel is not particularly distended. These findings have not changed significantly since the previous study. Pelvis: There is edema in the presacral space. This has not changed since the previous study. The urinary bladder is not distended. The regional skeleton is stable in appearance. IMPRESSION: 1. Small bilateral pleural effusions and minimal basilar atelectasis. 2. The possibility of mild enterocolitis cannot be excluded. 3. Colocutaneous fistulae and subcutaneous abscess. Electronically signed by Rolan Hernandez 04/24/2019 7:34 PM
[2019-04-24] MEDS ORDERED: NS 1,000 ML IV SCH (19:45)
[2019-04-24 20:05] LABS: HEMATOCRIT 28.5 % (37.0-47.0); HEMOGLOBIN 8.8 g/dL (12.0-16.0)
[2019-04-24] MEDS: PROTONIX IV SCH (20:10)
[2019-04-24] MEDS: TAPAZOLE PO SCH (20:11)
[2019-04-24 20:31] LABS: FREE T4 1.15 ng/dL (0.93-1.70); TSH 0.04 uIUmL (0.27-4.20)
--- NOTE | 2019-04-24 20:35 | EKG Report ---
Test Performed on : 04/24/2019 6:33:09 PM Test Reason : tachycardia Blood Pressure : / mmHG Vent. Rate : 117 BPM Atrial Rate : 117 BPM P-R Int : 122 ms QRS Dur : 086 ms QT Int : 304 ms P-R-T Axes : 063 047 071 degrees QTc Int : [address] & T wave abnormality, consider lateral ischemia Nonspecific T wave abnormality Inferior leads Abnormal ECG When compared with ECG of 21-APR-2019 11:10, (Unconfirmed) Vent. rate has increased BY 39 BPM Nonspecific T wave abnormality now evident in Inferior leads T wave inversion now evident in Lateral leads Confirmed by Corey Ruiz MD ([id number]) on 04/26/2019 8:48:47 PM
[2019-04-24] MEDS ORDERED: ELAVIL PO SCH (21:00)
[2019-04-24] MEDS ORDERED: CELEXA PO SCH (21:00)
[2019-04-24] MEDS: XOPENEX NEB INH SCH (23:00)
[2019-04-24] MEDS ORDERED: NS 250 ML ONE (23:21)
[2019-04-25] MEDS: MAXIPIME 1 GM in NS 50 ML IV SCH ×2 (02:30→14:44)
[2019-04-25 02:41] LABS: HEMATOCRIT 32.1 % (37.0-47.0); HEMOGLOBIN 10.1 g/dL (12.0-16.0)
[2019-04-25] MEDS: ZYVOX 600 MG/D5W 600 MG/300 ML IVPB IV SCH ×2 (04:00→14:21)
[2019-04-25] MEDS: MORPHINE IV PRN ×5 (06:00→22:33)
[2019-04-25] MEDS: PROTONIX IV SCH ×3 (06:01→20:05)
[2019-04-25 06:10] LABS: BASO# 0.02 X1000 (0.0-0.2); BASO% 0.3 % (0.0-0.8); EOS# 0.05 X1000 (0.0-0.7); EOS% 0.7 % (0.0-10.0); HEMATOCRIT 32.5 % (37.0-47.0); HEMOGLOBIN 10.3 g/dL (12.0-16.0); IMM GRAN# 0.04 X1000 (0.0-0.04); IMM GRAN% 0.6 % (0.0-0.5); LYMPH# 2.16 X1000 (1.2-3.4); LYMPH% 30.8 % (20.5-51.1); MCH 28.4 PG (27-31); MCHC 31.7 g/dL (33-37); MCV 89.5 FL (81-99); MONO# 0.67 X1000 (0.11-0.59); MONO% 9.5 % (1.7-9.3); MPV 9.9 FL (7.4-10.4); NEUT# 4.08 X1000 (1.4-6.5); NEUT% 58.1 % (42.2-75.2); PLT 329 X1000 (130-400); RBC 3.63 XMIL (4.2-5.4); RDW 17.4 % (11.5-14.5); WBC 7.02 X1000 (4.8-10.8)
[2019-04-25 06:28] LABS: AGAP 11; BUN 6 mg/dL (8-22); CALCIUM 8.3 mg/dL (8.8-10.2); CHLORIDE 102 mmol/L (98-107); COSMO 271; CREATININE 0.7 mg/dL (0.5-0.9); ESTIMATED GFR > 60; GLUCOSE 126 mg/dL (70-104); POTASSIUM 3.5 mmol/L (3.5-5.1); SODIUM 136 mmol/L (136-145); TCO2 23 mmol/L (25-35)
[2019-04-25] MEDS ORDERED: PROTONIX PO SCH (07:00)
--- NOTE | 2019-04-25 07:22 | EKG Report ---
Test Performed on : 04/25/2019 07:00:58 AM Test Reason : tachycardia Blood Pressure : / mmHG Vent. Rate : 094 BPM Atrial Rate : 094 BPM P-R Int : 126 ms QRS Dur : 084 ms QT Int : 372 ms P-R-T Axes : 063 059 059 degrees QTc Int : 465 ms Normal sinus rhythm. Nonspecific ST abnormality Abnormal ECG When compared with ECG of 24-APR-2019 18:33, (Unconfirmed) Nonspecific T wave abnormality no longer evident in Inferior leads T wave inversion no longer evident in Lateral leads Confirmed by Corey Ruiz MD ([id number]) on 04/26/2019 8:55:04 PM
[2019-04-25] MEDS: ATIVAN PO SCH (08:50)
[2019-04-25] MEDS: FOLIC ACID PO SCH (08:50)
[2019-04-25] MEDS: LIORESAL PO SCH ×3 (08:50→21:20)
[2019-04-25] MEDS ORDERED: LASIX PO SCH (09:00)
[2019-04-25] MEDS: XOPENEX NEB INH SCH ×3 (10:06→22:02)
[2019-04-25] MEDS ORDERED: ALBUMIN 25% IV ONE (11:04)
[2019-04-25] MEDS ORDERED: LASIX IV ONE (11:04)
--- NOTE | 2019-04-25 11:39 | PROGRESS NOTE ---
DATE: 04/25/2019 SUBJECTIVE: The patient had an increase in her bleeding going into the colostomy bag last night. This morning, no further bleeding has been noted. The patient received 1 unit of packed red blood cells yesterday. The patient denies having any nausea, vomiting or abdominal pain. OBJECTIVE: Vital Signs: Temperature 98.6 degrees, blood pressure 130/60, heart rate 98, respirations 17, O2 saturation 96% on 2 L nasal cannula. Intake 2.5 L; output 1.1 L. General: This is a chronically ill-appearing elderly female, lying in bed in no acute distress. Heart: S1, S2 normal. Tachycardic. Lungs: Clear to auscultation bilaterally. Abdomen: Positive bowel sounds. Soft. The patient has [address] There is some residual blood in one of the colostomy bags. Extremities: 2+ edema. Neurologic: The patient is alert and oriented x3. LABS: White blood cell count 7, hemoglobin 10, hematocrit 32, platelets 329. Sodium 136, potassium 3.5, chloride 102, CO2 23. BUN 6, creatinine 0.7, glucose 126. ASSESSMENT AND PLAN: 1. Gastrointestinal bleed. The patient continues to have intermittent bleeding into her colostomy bag. We will await further recommendations from Gastroenterology Continue on intravenous Protonix. 2. Status post robotic-assisted laparoscopic abdominal peritoneal resection with colostomy secondary to rectal cancer. Aware. 3. Colocutaneous fistulas. Wound care is following. 4. Anemia of acute blood loss. We will monitor the hemoglobin and hematocrit closely and transfuse as necessary. 5. Chronic obstructive pulmonary disease. Stable. 6. Hyperthyroidism. Continue on Tapazole. 7. Immunoglobulin deficiency status post IVIG. Aware. 8. Bilateral pleural effusions. We will give the patient a dose of Lasix. 9. Coronary artery disease status post coronary artery bypass graft. Continue on the current cardiac medications. 10. Chronic hypoxemic respiratory failure. Stable. 11. Deep vein thrombosis prophylaxis. Continue with sequential compression devices. cc: Leigh Ann Quijano MD MTDD
--- NOTE | 2019-04-25 12:57 | GASTROENTEROLOGY PROGRESS NOTE ---
DATE: 04/25/2019 SUBJECTIVE: Ms. Suarez is a 61-year-old female resting in bed. The patient has denied any nausea, vomiting or abdominal pain, but she did mention that she had some bleeding through her wound in the ostomy bag on the mid quadrant. OBJECTIVE: Vital Signs: Temperature 98.5 degrees, pulse 101, respirations 16, blood pressure 124/52, oxygen saturation 99% on 2 L nasal cannula. The patient's weight is 169 pounds. BMI 29.8 kg/m2. General: She is alert, oriented x3, and in no acute distress. HEENT: Pale conjunctivae. No icterus. PERRL. Neck: Supple. Lungs: Clear to auscultation. Abdomen: Tender in the mid area. Active bowel sounds heard in all 4 quadrants. The patient has an ostomy bag on her fistula, which has some blood in the bag. Extremities: No clubbing, no cyanosis. The patient has 1+ to 2+ pitting edema bilaterally. Neurological: Alert and oriented x3. LABS: WBCs are 7.02, RBCs 3.63, hemoglobin is 10.3, hematocrit is 32.5, platelet count is 329. Sodium is 136, potassium 3.5, chloride 102, carbon dioxide 23, anion gap 11. BUN 6, creatinine is 0.7, glucose 126, calcium 8.3. IMAGING: Patient's chest, abdomen and pelvis CT yesterday showed she had small bilateral pleural effusions and minimal bibasilar atelectasis, possibility of mild enterocolitis and colocutaneous fistula and subcutaneous abscesses. IMPRESSION AND PLAN; 1. Anemia. 2. Pneumonia. 3. Coronary artery disease s/p CABG 4. Rectal cancer. 5. Congestive heart failure. 6. Sepsis. PLAN: Ms. Suarez is a 68-year-old female with a history of colon cancer status post surgery and colostomy bag in the left quadrant. She also has another ostomy bag on the fistula. Gastroenterology is following her for anemia. The patient's hemoglobin and hematocrit today is 10.3 and 32.5. They are slightly trending upwards. The patient had some bleeding from the ostomy bag which is on top of the fistula. The patient has so far received 3 units of blood. She is currently on PPIs twice a day. She is on antibiotics, Zyvox and Maxipime. The patient's ostomy bag on the fistula shows residual blood, per surgeon and wound nurse it is not the fistula that is bleeding. We plan to do an EGD with flex sigmoidoscopy tomorrow for work up of persistent anemia and questionable GI bleed. We have discussed the risks, benefits and alternatives of the procedure to the patient. This plan was discussed with Dr. Rice. Please call us for any further questions or concerns. Dictated by SILVERIO Dasilva for Julián Rice MD cc: Julián Rice MD I have seen and examined the patient myself and I agree with the above plan of care. Please call us with any further questions or concerns. [facility]
--- NOTE | 2019-04-25 17:08 | GENERAL SURGERY CONSULTATION ---
DATE: 04/25/2019 REASON FOR CONSULTATION: Colonic fistula. HISTORY OF PRESENT ILLNESS: This 68-year-old female had a low rectal carcinoma. She underwent abdominoperineal resection several months ago. This was complicated by her obesity and chronic medical conditions. She had a very foreshortened descending colon, which made creation of colostomy difficult. She developed some distal ischemia and, unfortunately, subsequently developed fistulization of her lower midline wound. This has been well controlled as an outpatient. I even saw her last week in my office. Her primary ostomy output is via the colostomy, but she does have some intermittent drainage from 2 small sinuses in the lower midline wound, but she denies any fever. Apparently, she had seen Dr. Parada during the week and she developed some near presyncopal events and was referred to the emergency department where she was found to have pneumonia and urinary tract infection, and admitted for management of this. She was also found to be somewhat anemic, and I believe she has been transfused. Other than some skin edge bleeding from around her ostomy, which is very minimal, she has had no GI bleeding. She has been eating normally. She has had otherwise normal ostomy functioning. She feels better since she has been in the hospital. MEDICAL HISTORY: She has severe COPD, coronary disease, status post coronary artery bypass grafting, hyperlipidemia, heart failure, hypothyroidism, obesity, and recent rectal cancer. SURGICAL HISTORY: She has had a robotic assisted abdominoperineal resection with end colostomy, coronary artery bypass grafting, tonsillectomy, and tubal ligation. SOCIAL HISTORY: She is a former smoker. She does not currently smoke or drink alcohol. FAMILY HISTORY: Negative for GI malignancies. PHYSICAL EXAMINATION: Vital Signs: On exam, she is afebrile, pulse has been in the low 90s, blood pressure 131/64, oxygen saturation 100%. She is on 2 L, which she is on chronically. General: She is chronically ill-appearing but near her baseline. HEENT: She has poor dentition. Cardiovascular: Normal rate. Pulmonary: No increased work of breathing. Abdomen: Soft, nontender, nondistended. Her colostomy has stool in the bag. Her lower midline fistula sinuses have a bag there with a scant amount of output. Integument: Warm and dry. Extremities: No lower extremity edema. Psychiatric: Appropriate affect. Neurologic: No gross deficits. LABORATORY: White count normal at 7, hematocrit 32, it has been as low as 22 since admission. Platelets 329,000, creatinine 0.7, glucose 126. Lactate was elevated at 3s when she arrived. She had a procalcitonin that was less than 0.10. LFTs were normal on arrival. I have reviewed her imaging, CT scan of the abdomen and pelvis and her chest x-ray on admission that showed left lower lobe pneumonia. ASSESSMENT AND PLAN: A 68-year-old female with multiple medical issues, admitted with urinary tract infection and pneumonia. Currently, I feel though her colostomy and her sinus are stable from the last several months with no source of infection at this juncture. They have been pouched well and I have talked to Daysi, our wound nurse. From an anemia standpoint this could be in chronic disease, and it could be the result of a GI loss, but if I was suspecting I would suspect that this would be more upper GI loss. It would be reasonable to rule this out with EGD. It is safe to perform a colonoscopy and she will need this at least 1 year from her previous and it would be reasonable to consider this given her clinically significant anemia on arrival. We will continue to follow along with no plans for surgical intervention. cc: Aramis Serrano MD
[2019-04-25] MEDS: TAPAZOLE PO SCH (18:37)
[2019-04-25] MEDS: SODIUM CHLORIDE 0.9% INJ SCH (20:06)
[2019-04-26] MEDS: ZYVOX 600 MG/D5W 600 MG/300 ML IVPB IV SCH ×2 (01:51→14:14)
[2019-04-26] MEDS: MORPHINE IV PRN ×3 (02:10→10:48)
[2019-04-26] MEDS: MAXIPIME 1 GM in NS 50 ML IV SCH (03:25)
[2019-04-26 03:45] LABS: BASO# 0.02 X1000 (0.0-0.2); BASO% 0.3 % (0.0-0.8); EOS# 0.02 X1000 (0.0-0.7); EOS% 0.3 % (0.0-10.0); HEMATOCRIT 35.8 % (37.0-47.0); HEMOGLOBIN 11.2 g/dL (12.0-16.0); IMM GRAN# 0.02 X1000 (0.0-0.04); IMM GRAN% 0.3 % (0.0-0.5); LYMPH# 2.17 X1000 (1.2-3.4); LYMPH% 33.7 % (20.5-51.1); MCH 28.2 PG (27-31); MCHC 31.3 g/dL (33-37); MCV 90.2 FL (81-99); MONO# 0.65 X1000 (0.11-0.59); MONO% 10.1 % (1.7-9.3); MPV 9.9 FL (7.4-10.4); NEUT# 3.55 X1000 (1.4-6.5); NEUT% 55.3 % (42.2-75.2); PLT 337 X1000 (130-400); RBC 3.97 XMIL (4.2-5.4); RDW 17.2 % (11.5-14.5); WBC 6.43 X1000 (4.8-10.8)
[2019-04-26 03:47] LABS: AGAP 13; ALB/GLOB RATIO 0.9; ALBUMIN 2.9 g/dL (3.5-5.0); ALKALINE PHOSPHATASE 84 U/L (32-104); BUN 4 mg/dL (8-22); CALCIUM 8.7 mg/dL (8.8-10.2); CHLORIDE 102 mmol/L (98-107); COSMO 281; CREATININE 0.6 mg/dL (0.5-0.9); ESTIMATED GFR > 60; GLUCOSE 86 mg/dL (70-104); GOT 9 U/L (10-30); GPT 8 U/L (10-36); POTASSIUM 3.2 mmol/L (3.5-5.1); SODIUM 143 mmol/L (136-145); TCO2 28 mmol/L (25-35)
--- NOTE | 2019-04-26 06:35 | Diag Imaging Result Doc PS360 ---
EXAM: CHEST-1 VIEW HISTORY: dyspnea TECHNIQUE: Single view COMPARISON: 04/23/2019 FINDINGS: The lungs are well expanded. The heart is not enlarged. There are sternal wires. The vessels are not distended. There are no infiltrates. No effusion identified. IMPRESSION: Stable chest Electronically signed by Wilberto Richardson 04/26/2019 6:33 AM
[2019-04-26] MEDS: POTASSIUM CHLORIDE 20 MEQ/SWI 20 MEQ/100 ML IVPB IV SCH ×2 (07:55→10:37)
[2019-04-26] MEDS: PROTONIX IV SCH ×2 (07:55→20:13)
[2019-04-26] MEDS ORDERED: ZOFRAN ONE (09:38)
[2019-04-26] MEDS ORDERED: XYLOCAINE-MPF 2% ONE (09:40)
[2019-04-26] MEDS ORDERED: DIPRIVAN 1% ONE ×2 (09:40→10:11)
[2019-04-26] MEDS ORDERED: FENTANYL ONE (09:42)
[2019-04-26] MEDS: LIORESAL PO SCH ×3 (09:45→20:01)
[2019-04-26] MEDS: ATIVAN PO SCH (09:46)
[2019-04-26] MEDS: FOLIC ACID PO SCH (09:48)
[2019-04-26] MEDS: LASIX PO SCH (09:48)
[2019-04-26] MEDS: XOPENEX NEB INH SCH ×3 (09:51→22:39)
--- NOTE | 2019-04-26 11:11 | ENDOSCOPY OPERATIVE NOTE ---
[facility] ENDOSCOPY OPERATIVE NOTE , EGD PROCEDURE REPORT EXAM DATE: 04/26/2019 PATIENT NAME: Yanely Suarez MR#: #[id number] BIRTHDATE: 1950 ATTENDING: Edgar Malcolm MD STATUS: inpatient FINANCE ANALYST: INDICATIONS: The patient is a 68 yr old female here for an EGD due to anemia. PROCEDURE PERFORMED: EGD w/ biopsy MEDICATIONS: Per Anesthesia ESTIMATED BLOOD LOSS: None CONSENT: The patient understands the risks and benefits of the procedure and understands that these r isks include, but are not limited to: sedation, allergic reaction, infection, perforation and/or bleeding. Alternative means of evaluation and treatment include, among others: physical exam, x-rays, and/or surgical intervention. The patient elects to proceed with this endoscopic procedure. DESCRIPTION OF PROCEDURE: During pre-op preparation period all mechanical and medical equipment was c hecked for proper function. Hand hygiene and appropriate measures for infection prevention was taken. After the risks, benefits and alternatives of the procedure were thoroughly explained, Informed consent was verified, confirmed and timeout was successfully executed by the treatment team. The patient was anesthetized with topical anesthesia and the endoscope was introduced through the mouth and advanced to the second portion of the duodenum. Retroflexion wa s performed in the stomach and revealed no abnormalities. The gastroscope was then slowly withdrawn and removed. The p atient's toleration of the procedure was excellent. ESOPHAGUS: The mucosa of the esophagus appeared normal. The z-line was noted at 40cm from the incis ors. The z-line appeared normal. STOMACH: A single non-bleeding, shallow and clean-based ulcer measuring 7mm in size was found on the greater curvature of the gastric body. Mild gastritis (inflammation) was found in the entire examined stomach. A bio psy was performed using cold forceps. Sample sent for histology. DUODENUM: The duodenum was normal. ADVERSE EVENTS: There were no complications. IMPRESSIONS: 1. The mucosa of the esophagus appeared normal 2. The z-line was noted at 40cm from the incisors 3. Single ulcer measuring 7mm in size was found on the greater curvature of the gastric body 4. Gastritis (inflammation) was found in the entire examined stomach; biopsy was performed 5. The duodenum was normal RECOMMENDATIONS: 1. Await biopsy results 2. PPI PO BID for 3 months 3. Avoid NSAIDs 4. Continue to colonoscopy procedure REPEAT EXAM: Return in 3 months for EGD. Edgar Malcolm MD eSigned: Edgar Malcolm MD 04/26/2019 10:27 AM CC: CPT CODES: 90936 Upper gastrointestinal endoscopy including esophagus, stomach, and either the du odenum and/or jejunum as appropriate; with biopsy, single or multiple ICD CODES: 285.9 anemia,unspecified 535.50 Unspecified gastritis and gastroduodenitis (without hemorrhage) The ICD and CPT codes recommended by this software are interpretations from the data that the [facility] staff has captured with the software. The verification of the translation of this report to the ICD and CPT co rufino and modifiers is the sole responsibility of the health care institution and practicing physician where this report was generated. [employer] will not be held responsible for the validity of the ICD and CPT codes i ncluded on this report. [employer] assumes no liability for data contained or not contained herein. CPT is a registered tra demark of the [employer]. PATIENT NAME: Yanely Suarez MR#: #[id number]
--- NOTE | 2019-04-26 11:11 | ENDOSCOPY OPERATIVE NOTE ---
[facility] ENDOSCOPY OPERATIVE NOTE , PATIENT: Yanely Suarez ADM DATE: [facility] #: [facility][id number] : 1950 [facility] [id number] FLEXIBLE SIGMOIDOSCOPY PROCEDURE REPORT PROCEDURE DATE: 04/26/2019 SURGEON: Edgar Malcolm MD STATUS: inpatient PROJECT DESIGN ENGINEER: PREOPERATIVE DIAGNOSIS: The patient is a 68 yr old female here for a colonoscopy due to anemia, non- specific and GI bleed. PROCEDURE PERFORMED: Sigmoidoscopy, diagnostic MEDICATIONS: Per Anesthesia PREP TYPE: NPO PREP QUALITY: The overall prep quality was adequate. ESTIMATED BLOOD LOSS: None CONSENT: The patient understands the risks and benefits of the procedure and understands that these r isks include, but are not limited to: sedation, allergic reaction, infection, perforation and/or bleeding. Alternative means of evaluation and treatment include, among others: physical exam, x-rays, and/or surgical intervention. The patient elects to proceed with this endoscopic procedure. HISTORY AND PHYSICAL: 04/26/2019 DESCRIPTION OF PROCEDURE: During the intra-op preparation period all mechanical and medical equipment was checked for proper function. Hand hygiene and appropriate measures for infection prevention was taken. After the risks, benefits and alternatives of the procedure were thoroughly explained, Informed consent was verified, confirmed and timeout was successfully executed by the treatment team. A digital exam was not performed. The endoscope was i ntroduced through the descending colostomy and advanced to the 40cm from ostomy. The instrument was then slowly withdra wn as the colon was fully examined. COLON FINDINGS: Small fistula was found located 3 cm from the point of entry. There were two short fibrotic strictures located 7 cm and 10cm from the point of entry. The stricture was traversable with resistance. Gree n semi-solid stool was found throughout the examined colon. Retroflexion was not performed. The scope was then completel y withdrawn from the patient and the procedure terminated. SPECIMENS REMOVED: No ADVERSE EVENTS: There were no complications. POSTOPERATIVE DIAGNOSIS: 1. Small fistula located 3 cm from the point of entry 2. There was a short stricture located 7 cm from the point of entry 3. Green semi-solid stool was found throughout the examined colon RECOMMENDATIONS: 1. Resume diet 2. Anemia likely multifactorial from superficial bleeding from fistula and gastric ulcer 3. Recommend PPI PO BID and repeat EGD in 3 months 4. Avoid constipation 5. Defer mgmt of non-obstructing strictures and fistula to general surgeon RECALL: Edgar Malcolm MD eSigned: Edgar Malcolm MD 04/26/2019 10:36 AM cc: PATIENT NAME: Yanely Suarez MR#: #[id number]
--- NOTE | 2019-04-26 11:28 | PROGRESS NOTE ---
DATE: 04/26/2019 INTERVAL HISTORY: No acute events overnight. Ms. Suarez's pulse was in the 90s. She was normotensive to hypertensive. Her hypokalemia is currently being repleted. Her hemoglobin has been stable. We discussed about pneumonia. We discussed about GI bleed. I answered all of her questions. VITALS: Temperature 97.6 degrees, pulse 91 respiratory rate 16, blood pressure 130/68, saturating 99% on 2 L nasal cannula. PHYSICAL EXAMINATION: Ms Suarez is not in any acute distress. HEENT: Oral cavity is moist. Respiratory: Air entry: She had decreased breath sounds bilateral lung field. No wheeze, rhonchi, or crackles. Cardiovascular: S1, S2 normal. No murmur, rub, or gallop. Abdomen: Soft. She had a lower quadrant colostomy with major output. She also has another ostomy bag applied at the site of lower abdominal incision where colocutaneous fistula is there. Active bowel sounds. Extremity: No lower extremity edema. She is alert and oriented x3. She was able to sit up from lying down position without any help. LABS: Suggestive of hemoglobin of 11.2, platelets 337,000, potassium of 3.2 which is currently being repleted. BUN is 4, creatinine 0.6. MICROBIOLOGY: No new data. IMAGING: No new imaging. ASSESSMENT AND PLAN: 1. Acute gastrointestinal bleed leading to melanotic stool in colostomy leading to acute blood loss anemia status post 3 units of packed red blood cells. Continue intravenous pantoprazole every 12 hours, oral folic acid and add ferrous sulfate. Gastroenterology team is planning endoscopy today. I will appreciate post endoscopy recommendations. 2. Sepsis due to questionable left lower lobe pneumonia as well as Klebsiella pneumoniae, acute cystitis without hematuria. Continue intravenous linezolid and intravenous cefepime. I will change cefepime to cefazolin as per culture and sensitivity. On repeat chest x-ray pneumonia seems to be improving and I will stop antibiotics in next 24 to 48 hours. 3. History of rectal cancer status post robotic assisted laparoscopic abdominoperineal resection with colostomy complicated by colocutaneous fistula. Her gastrointestinal issues have been stable as per surgery recommendation and she would need regular general surgery follow-up after discharge. 4. History of coronary artery disease status post coronary artery bypass grafting in 2016. The patient takes aspirin and Plavix at home. I will resume once her hemoglobin is stable. I will resume her home metoprolol, lisinopril and pravastatin as tolerated. 5. Others. Continue home methimazole for history of hyperthyroidism, lorazepam for anxiety, baclofen for chronic muscle spasm. O2 and bronchodilators inhaled for chronic hypoxic respiratory failure and COPD. DISPOSITION: Continue to monitor patient inside ICU. Thirty five minutes of critical care time was spent in taking care of this patient. I discussed with her about possibilities of peptic ulcer disease. I discussed with her about risk of aspirin and Plavix causing or probably a contributing to gastrointestinal bleed. I answered all of her questions. I also counseled her about need for regular cardiology follow up. She understood it. cc: Ayush Carrion MD MTDHari
[2019-04-26] MEDS: NORCO-10 PO PRN ×2 (17:24→23:26)
[2019-04-26] MEDS: KEFZOL 1 GM/D5W 1 GM/50 ML IVPB IV SCH (17:25)
[2019-04-26] MEDS: TAPAZOLE PO SCH (17:29)
[2019-04-26] MEDS: LOPRESSOR PO SCH (22:31)
[2019-04-26] MEDS ORDERED: CALMOSEPTINE OINTMENT TOP PRN (22:37)
[2019-04-26] MEDS: LIPITOR PO SCH (23:07)
[2019-04-27] MEDS: KEFZOL 1 GM/D5W 1 GM/50 ML IVPB IV SCH ×3 (01:13→18:51)
[2019-04-27] MEDS: ZYVOX 600 MG/D5W 600 MG/300 ML IVPB IV SCH (01:13)
[2019-04-27] MEDS: NORCO-10 PO PRN ×3 (05:36→20:10)
[2019-04-27 05:53] LABS: HEMATOCRIT 40.3 % (37.0-47.0); HEMOGLOBIN 12.6 g/dL (12.0-16.0); MCH 28.7 PG (27-31); MCHC 31.3 g/dL (33-37); MCV 91.8 FL (81-99); MPV 10.2 FL (7.4-10.4); RBC 4.39 XMIL (4.2-5.4); RDW 17.2 % (11.5-14.5); WBC 6.99 X1000 (4.8-10.8)
[2019-04-27] MEDS: PROTONIX IV SCH ×2 (06:23→18:50)
[2019-04-27 06:34] LABS: AGAP 11; ALB/GLOB RATIO 1.1; ALBUMIN 3.1 g/dL (3.5-5.0); ALKALINE PHOSPHATASE 87 U/L (32-104); BUN 5 mg/dL (8-22); CALCIUM 8.6 mg/dL (8.8-10.2); CHLORIDE 98 mmol/L (98-107); COSMO 273; CREATININE 0.6 mg/dL (0.5-0.9); ESTIMATED GFR > 60; GLUCOSE 74 mg/dL (70-104); GOT 12 U/L (10-30); GPT 11 U/L (10-36); POTASSIUM 3.5 mmol/L (3.5-5.1); SODIUM 139 mmol/L (136-145); TCO2 30 mmol/L (25-35); TOTAL BILIRUBIN 0.67 mg/dL (0.20-1.00)
[2019-04-27] MEDS ORDERED: BENADRYL CREAM TOP PRN (07:21)
[2019-04-27] MEDS: XOPENEX NEB INH SCH ×3 (08:59→21:48)
[2019-04-27] MEDS ORDERED: PLAVIX PO SCH (09:00)
--- NOTE | 2019-04-27 09:01 | PROGRESS NOTE ---
DATE: 04/27/2019 INTERVAL HISTORY: Ms. Suarez underwent EGD and flexible sigmoidoscopy through her colostomy yesterday, which had detected nonbleeding 6 mm single ulcer in the greater curvature of the gastric body. It was shallow and clean-based with mild gastritis. She was also detected to have small fistula located 3 cm from the point of entry, and a short stricture located 7 cm from the point of entry and 10 cm. She has had increase in her blood count after that. No other acute events. SUBJECTIVE: Ms. Suarez is complaining of itching of bilateral lower extremities. She denies any chest pain, shortness of breath, nausea, vomiting, abdominal pain. We discussed about endoscopy finding, need for repeat endoscopy. I answered all of her questions. REVIEW OF SYSTEMS: Positive for itching bilateral lower extremity. Positive for insomnia, which is improving. We discussed about starting her back on her aspirin and Plavix. VITALS: Temperature of 98 degrees, pulse 82, respiratory rate 15, blood pressure 114/77, saturating 97% on room air. PHYSICAL EXAMINATION: General: Not in acute distress. Oral cavity: Moist. Lungs: Air entry bilaterally equal. No wheeze, rhonchi, crackles. Cardiovascular: S1, S2 normal. No murmur or gallop. Abdomen: Soft. Lower quadrant colostomy with greenish-brown output. She also has another ostomy bag applied at the site of lower abdominal colocutaneous fistula. Active bowel sounds. Extremities: No lower extremity edema. She has erythema bilateral shins. She is alert and oriented x3. Her dorsalis pedis and posterior tibial pulses are intact. Capillary refill time less than 2 seconds. Skin: Turgor is normal. Pulses: Bilateral radial pulses are 2+. Neurologic: She is alert and oriented x3. Input and output: Suggests liquid brown bowel movement in the ostomy bag. LABS: Suggestive of WBC of 12.6, platelet 366, BUN 5, creatinine 0.6. MICROBIOLOGY: No positive microbiological data. Sputum culture in lab. X-RAYS: No new imaging. ASSESSMENT AND PLAN: 1. Acute likely upper gastrointestinal bleed leading to melanotic stool in colostomy, leading to symptomatic acute blood loss anemia status post 3 units of packed red blood cells. Continue intravenous pantoprazole every 12 hours, and plan is to change it to oral omeprazole in the next 24 hours for a total of at least 3 months. She has peptic ulcer in the stomach. Continue iron, folic acid. Endoscopy results noted. She needs follow up EGD in 3 months. 2. Sepsis due to questionable left lower lobe pneumonia, as well as Klebsiella pneumoniae, acute cystitis without hematuria, now resolved. Stop intravenous linezolid. Continue intravenous cefazolin for another 24 hours. 3. History of rectal cancer status post robotic-assisted laparoscopic abdominoperineal resection with colostomy, complicated by colocutaneous fistula. She would need outpatient general surgical followup. 4. History of coronary artery disease status post coronary artery bypass graft in 2016. Resume her home aspirin, Plavix and pravastatin. 5. Continue home metoprolol, lisinopril for history of essential hypertension. 6. Others. Continue methimazole for history of hypothyroidism, lorazepam for anxiety, baclofen for chronic muscle spasm, oxygen with inhaled bronchodilators for chronic hypoxic respiratory failure and chronic obstructive pulmonary disease. DISPOSITION: Transfer patient to medical floor with telemetry. Plan of care discussed with her. Questions have been answered. cc: MD FRANCK De La Torre
[2019-04-27] MEDS: PRINIVIL PO SCH (09:49)
[2019-04-27] MEDS: CLARITIN PO SCH (09:49)
[2019-04-27] MEDS: LASIX PO SCH (09:50)
[2019-04-27] MEDS: VITAMIN C PO SCH (09:50)
[2019-04-27] MEDS: LOPRESSOR PO SCH ×2 (09:51→20:02)
[2019-04-27] MEDS: FERROUS SULFATE PO SCH (09:51)
[2019-04-27] MEDS: ATIVAN PO SCH (09:52)
[2019-04-27] MEDS: FOLIC ACID PO SCH (09:53)
[2019-04-27] MEDS: LIORESAL PO SCH ×3 (09:58→20:00)
--- NOTE | 2019-04-27 11:15 | GASTROENTEROLOGY PROGRESS NOTE ---
DATE: 04/27/2019 SUBJECTIVE: Ms. Suarez is a 68-year-old, female resting in bed. The patient has denied any abdominal pain. She has denied noticing anymore bleeding in her ostomy bag. The patient is currently on a cardiac diet and she was able to tolerate her diet well. OBJECTIVE: Vital Signs: Temperature 97.5 degrees, pulse 82, respirations 18, blood pressure 159/77, oxygen saturation 99% on 2 L nasal cannula. The patient's weight is 165 pounds. BMI is 29.4 kg/m2. General: She is alert, oriented x3, and in no acute distress. HEENT: Pale conjunctivae. No icterus. PERRL. Neck: Supple. Lungs: Clear to auscultation. Cardiovascular: Regular rate and rhythm. Abdomen: Obese, nontender. Has an ostomy on the left side and has another ostomy bag on the fistula. Extremities: No clubbing, no cyanosis, no edema. Pedal pulses 2+ present bilaterally. Neurologic: She is alert, oriented x3. Labs: WBCs are 6.99, RBCs 4.39, hemoglobin is 12.6, hematocrit is 40.3, platelet count is 366,000. Sodium 139, potassium 3.5, chloride is 98, carbon dioxide 30, anion gap 11, BUN 5, creatinine is 0.6, glucose 74, calcium 8.6. Total bilirubin is 0.67, AST 12, ALT 11, alkaline phosphatase is 87, albumin is 2.9. EGD FINDINGS: EGD with a flexible sigmoidoscopy was done yesterday. Flexible sigmoidoscopy showed that the patient's small fistula was located 3 cm from the port of entry. There was a short stricture located 7 cm from the point of entry. Green semisolid stool was found throughout the examined colon. An EGD was done which showed that she had a single ulcer measuring 7 mm in size, was found on the greater curvature of the gastric body. Gastritis was found in the entire stomach. Biopsies were taken. The duodenum was normal. IMPRESSION AND PLAN - GI bleed - Gastric ulcer - Colonic stenosis of stoma - Colocutaneous fistula - History of rectal cancer - Sepsis - Pneumonia - UTI PLAN: Ms. Suarez is a 68-year-old, female with a history of colon cancer, status post surgery and colostomy. GI is following her for anemia. Yesterday patient had some bleeding in her ostomy bag from the fistula. We did an EGD with a flexible sigmoidoscopy and it showed that the patient had an ulcer in the gastric body and gastritis in the entire stomach. Flexible sigmoidoscopy showed that there was a short stricture located 7 cm from the port of entry with green semisolid stool throughout the colon. Recommend surgery to look at the nonobstructing stricture and the fistula. We will continue patient with PPIs for 3 months. Patient is advised to avoid NSAIDs. Patient will need to have a return EGD in 3 months. We will continue to monitor the patient and follow the plan of care per PCP. This plan was discussed with Dr. Malcolm. Please call us for any further questions or concerns. Dictated by SILVERIO Dasilva for Edgar Malcolm MD Physician Attestation I have seen and examined the patient. I have discussed and reviewed the note by Dolores SAWYER and agree with findings and plan as documented. Continue PPI BID for 3 months. Repeat EGD in 3 months. Patient is no longer bleeding and is having normal stools in her colostomy. No abdominal pain, N/V. MTDD
[2019-04-27] MEDS: TAPAZOLE PO SCH (18:50)
[2019-04-27] MEDS: LIPITOR PO SCH (20:00)
[2019-04-27] MEDS ORDERED: ASPIRIN EC PO SCH (21:00)
[2019-04-27] MEDS: MIRALAX PO SCH (21:00)
[2019-04-28] MEDS: KEFZOL 1 GM/D5W 1 GM/50 ML IVPB IV SCH (01:38)
[2019-04-28] MEDS: PROTONIX IV SCH (06:42)
[2019-04-28] MEDS: NORCO-10 PO PRN (07:34)
[2019-04-28] MEDS: FERROUS SULFATE PO SCH (08:07)
[2019-04-28] MEDS: VITAMIN C PO SCH (08:09)
[2019-04-28] MEDS: PRINIVIL PO SCH (08:10)
[2019-04-28] MEDS: CLARITIN PO SCH (08:10)
[2019-04-28] MEDS: FOLIC ACID PO SCH (08:11)
[2019-04-28] MEDS: LOPRESSOR PO SCH (08:11)
[2019-04-28] MEDS: LIORESAL PO SCH (08:11)
[2019-04-28] MEDS: ATIVAN PO SCH (08:13)
[2019-04-28] MEDS: MIRALAX PO SCH (08:14)
[2019-04-28] MEDS: LASIX PO SCH (08:14)
[2019-04-28 08:46] VITALS: BP 145/78
[2019-04-28] MEDS ORDERED: PLAVIX PO SCH (09:00)
--- NOTE | 2019-04-28 11:04 | DISCHARGE SUMMARY ---
ADMISSION DATE: 04/22/2019 DISCHARGE DATE: 04/28/2019 DISCHARGE DISPOSITION: Home. DISCHARGE CONDITION: Hemodynamically stable. She has been started on aspirin and Plavix, and has not had any black output through ostomy. She denies any chest pain. She only had occasional cough. We discussed about following up with regular physician for proper medication reconciliation. We discussed about following up with parts remover and discussing about this admission. I answered all of his questions. DISCHARGE DIAGNOSES: 1. Sepsis due to left lower lobe pneumonia, as well as acute urinary tract infection. 2. Acute cystitis without hematuria due to Klebsiella pneumoniae urinary tract infection. 3. Acute upper gastrointestinal bleed. 4. Acute blood loss anemia. 5. Hypokalemia. OTHER DIAGNOSES: 1. History of hyperthyroidism. 2. History of rectal cancer, status post robotic-assisted laparoscopic abdominoperineal resection with colostomy, complicated by colocutaneous fistula, being followed up by Surgical Team outpatient. 3. History of coronary artery disease, status post coronary artery bypass graft in 2016, on dual antiplatelet. 4. Hyperlipidemia. 5. Essential hypertension. 6. History of chronic pain. 7. History of anxiety. 8. History of congestive heart failure with preserved ejection fraction. 9. History of chronic obstructive pulmonary disease and chronic hypoxic respiratory failure, on home oxygen. DISCHARGE MEDICATIONS: 1. Ascorbic acid 500 mg daily. 2. Aspirin 81 mg at nighttime. 3. Baclofen 10 mg t.i.d. 4. Citalopram 20 mg at nighttime. 5. Vitamin B12, 1000 mcg intramuscular. 6. Diphenhydramine 25 mg every 4 hours as needed for itching. 7. Amitriptyline 50 mg at nighttime. 8. Ferrous sulfate 325 mg daily. 9. Lorazepam 0.5 mg daily. 10. Metoprolol tartrate 100 mg b.i.d. 11. Montelukast 10 mg daily. 12. Davis 10 one tablet every 6 hours as needed for pain. 13. Clopidogrel 75 mg daily. 14. Pravastatin 20 mg daily. 15. Lisinopril 5 mg daily. 16. Acetaminophen 650 mg every 4 hours as needed for pain. 17. Zofran 4 mg every 6 hours as needed for nausea and vomiting. 18. DuoNebs 3 mL inhaled every 6 hours as needed for shortness of breath. 19. Torsemide 20 mg b.i.d. 20. Magnesium 400 mg daily. 21. MiraLAX 17 grams b.i.d. 22. Omeprazole 40 mg b.i.d., 180 capsules have been prescribed. 23. Methimazole 10 mg on Thursday, Thursday, Thursday, and 5 mg on Thursday, , Thursday, and Thursday. The patient was advised to have a proper medication reconciliation since she was listed to be taking both atorvastatin and pravastatin, as well as both furosemide and torsemide. She was also advised to have a discussion with her regular physician if nonessential medication needed to be discontinued. She understood it. PHYSICAL EXAMINATION: Vital Signs: At the time of discharge, temperature 98.1 degrees, pulse 86, respiratory rate 13, blood pressure 140/70, she is saturating 97% on room air to 2 L nasal cannula. General: Ms. Suarez was not in any acute distress. Oral cavity was moist. Lungs: Air entry bilaterally equal. No wheeze, rhonchi, or crackles. Cardiovascular: S1, S2 normal. No murmur, rub, or gallop. Abdomen: Soft, nontender. She has a colostomy, which has brownish- yellow output. She also has another colostomy bag applied over the site of fistula, which also had brownish output. Otherwise, no abdomen tenderness. Extremities: No lower extremity edema. Neurologic: She was alert and oriented x3. DISCHARGE LABORATORY DATA: WBC 6.9, hemoglobin 12.6, platelets 366,000. BUN 5, creatinine 0.6. MICROBIOLOGY: Blood culture and sputum culture did not have any growth. Stool occult blood test was positive. IMAGING DURING THIS HOSPITAL ADMISSION: Chest x-ray on 04/22/2019 had questionable left lower lobe pneumonia. Chest, abdomen, and pelvis CT on 04/24/2019 had small bilateral pleural effusions, minimal basilar atelectasis, mild enterocolitis, colocutaneous fistula, and subcutaneous abscess. Chest x-ray on 04/26/2019 had stable chest. Gastric biopsy on 04/26/2019 had suggested chronic active gastritis, which was H. Pylori negative. Electrocardiogram on presentation had sinus tachycardia, ST-T wave abnormality, consider lateral ischemia, nonspecific T-wave abnormality in inferior leads. PROCEDURES DURING HOSPITAL ADMISSION: Endoscopy on 04/26/2019 had detected a small fistula located 3 cm from the point of entry from her ostomy. There was a short stricture located 7 cm from the point of entry, and there was green, semi-solid stool throughout the examined colon. The patient also had normal mucosa of esophagus, and a single ulcer about 7 mm in size on the greater curvature of gastric body, with gastritis on the entire stomach. The duodenum was normal. HOSPITAL COURSE SUMMARY: Ms. Suarez is a 68-year-old, lady, who initially presented on 04/22/2019 with chief complaint of dizziness. Apparently 24 hours prior to current presentation, the patient had come to the emergency room with chief complaint of dizziness in the bathroom before coming to the hospital. In the emergency room, she was found to be septic and was advised to get admitted. 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 When she was in the ER, she was found to have temperature of 98.1 degrees, with a 1- time fever of 101, pulse of 107, respiratory rate of 20, and blood pressure of 112/53. She was also briefly hypotensive with blood pressure of 80s/40s. Her initial lab evaluation had suggested WBC of 9.9, hemoglobin of 7.5, which had dropped to 6.2 on repeat evaluation a few hours later. She had platelets of 491. Her BUN was 18, creatinine 0.9, and she had lactic acidosis of about 2.6. She was diagnosed with sepsis due to urinary tract infection, as well as left lower lobe pneumonia, was resuscitated with intravenous fluids, and intravenous antibiotics were started, and was admitted to ICU for close monitoring. With intravenous fluids and intravenous antibiotics, the patient's clinical condition improved. Her urine culture had Klebsiella pneumoniae, which was sensitive to cefazolin, and sputum culture was negative. At the time of discharge, she has completed almost 7 days of intravenous antibiotics, and she would not need any antibiotics at the time of discharge. The stool sample from the ostomy was positive for occult blood, and she required 3 units of blood transfusion during hospital admission. GI was consulted, and she underwent endoscopy, which had detected a 7 mm ulcer in the greater curvature of the stomach, which did not require any intervention as it was not actively bleeding. She was continued on iron, intravenous pantoprazole, following which her hemoglobin had stabilized, and at the time of discharge, it was 12. Thirty five minutes were spent discharging this patient. The patient was advised to have follow up with GI physician in 3 months for repeat endoscopy, as well as Dr. Serrano, who is the surgeon doctor for her colocutaneous fistula, which was thought to be stable and needed outpatient close monitoring. cc: Ayush Carrion MD MTDD
--- NOTE | 2019-04-28 11:30 | GASTROENTEROLOGY PROGRESS NOTE ---
DATE: 04/28/2019 SUBJECTIVE: Ms. Suarez is a 68-year-old female. She was sitting in bed. The patient was excited that she was getting discharged and going home. She has denied any nausea, vomiting, abdominal pain. Her colostomy bag on the top of the fistula had no blood. OBJECTIVE: Vital Signs: Temperature 98.1 degrees, pulse 86, respirations 13, blood pressure is 145/78, oxygen saturation 97% on 2 L nasal cannula. The patient's weight is 166 pounds, BMI is 29.4 kg/m2. General: She is alert, oriented x3, in no acute distress. HEENT: Pale conjunctivae. No icterus. PERRL. Neck: Supple. Lungs: Clear to auscultation. Cardiovascular: Regular rate and rhythm. Abdomen: Obese, nontender. Has ostomy bag on the left side and has another ostomy bag on the fistula. Extremities: No clubbing, no cyanosis, no edema. Pedal pulses 2+ present bilaterally. Neurologic: She is alert, oriented x3. LABORATORY DATA: Her hematology is from 04/27/2019, WBC 6.9, RBC 4.39, hemoglobin 12.6, hematocrit is 40.3, platelet count is 366,000. Sodium 139, potassium 3.5, chloride 98, carbon dioxide 30, anion gap 11, BUN 5, creatinine is 0.6, glucose 74, calcium is 8.6. IMPRESSION AND PLAN: 1. Gastrointestinal bleed. 2. Gastric ulcers. 3. Colonic stenosis of the stoma. 4. Colocutaneous fistula. 5. History of rectal cancer. 6. Sepsis. 7. Pneumonia. 8. Urinary tract infection. PLAN: Ms. Suarez is a 68-year-old female with a history of colon cancer status post surgery and colostomy. GI is following her for anemia. Continue to follow with surgeon for management of colocutaneous fistula, colonic stenosis noted on colonoscopy per Dr Malcolm. The patient has discharge orders to go home today. The patient can follow up as an outpatient in 4 to 6 weeks. This plan was discussed with Dr. Rice. Please call us for any further questions or concerns. Dictated by SILVERIO Dasilva for Julián Rice MD cc: Julián Rice MD I have seen and examined the patient myself and I agree with the above plan of care. Please call us with any further questions or concerns. FRANCK
[2019-04-28] MEDS: XOPENEX NEB INH SCH (11:37)
== END 2019-04-28 12:01 | disposition home health service (06) | DRG 871 ==
LOC: ED 10:11 → SUATTDRO 13:06 → EDIPHOLD 13:06 → 3N 15:05 → ICU 04-24 22:15
PROVIDERS: ATTEND Internal Medicine

== ENCOUNTER 2019-05-27 12:21 | Inpatient (IN) ==
[2019-05-27] MEDS ORDERED: NS 1,000 ML IV ONE ×2 (12:39→13:45)
[2019-05-27] MEDS ORDERED: NS 1,000 ML ONE (12:44)
[2019-05-27] MEDS: LEVOPHED 8 MG in D5 1/2 NS 250 ML IV SCH (13:08)
[2019-05-27 13:31] LABS: BASO# 0.04 X1000 (0.0-0.2); BASO% 0.3 % (0.0-0.8); EOS# 0.03 X1000 (0.0-0.7); EOS% 0.2 % (0.0-10.0); HEMATOCRIT 32.7 % (37.0-47.0); IMM GRAN# 0.05 X1000 (0.0-0.04); IMM GRAN% 0.3 % (0.0-0.5); LYMPH# 1.45 X1000 (1.2-3.4); LYMPH% 9.3 % (20.5-51.1); MCH 27.8 PG (27-31); MCHC 30.6 g/dL (33-37); MCV 90.8 FL (81-99); MONO# 0.92 X1000 (0.11-0.59); MONO% 5.9 % (1.7-9.3); MPV 10.6 FL (7.4-10.4); NEUT# 13.15 X1000 (1.4-6.5); PLT 473 X1000 (130-400); RDW 17.5 % (11.5-14.5); WBC 15.64 X1000 (4.8-10.8)
--- NOTE | 2019-05-27 13:36 | Diag Imaging Result Doc PS360 ---
EXAM: CHEST-1 VIEW HISTORY: sob TECHNIQUE: Single view COMPARISON: 04/26/2019 FINDINGS: The lungs are well expanded. The heart is not enlarged. There are sternal wires. The vessels are not distended. There are no infiltrates. No effusion identified. Scattered right granuloma. . IMPRESSION: Negative exam. Electronically signed by Wilberto Richardson 05/27/2019 1:34 PM
[2019-05-27 13:38] LABS: INR 0.95; PROTIME 12.8 Seconds (11.0-16.0)
[2019-05-27] MEDS ORDERED: NS 200 ML IV ONE (13:45)
[2019-05-27 13:49] LABS: ALB/GLOB RATIO 1.2; ALBUMIN 2.9 g/dL (3.5-5.0); CALCIUM 8.5 mg/dL (8.8-10.2); CREATININE 1.4 mg/dL (0.5-0.9); POTASSIUM 3.2 mmol/L (3.5-5.1); TOTAL BILIRUBIN 0.35 mg/dL (0.20-1.00); TOTAL PROTEIN 5.3 g/dL (6.3-8.3)
[2019-05-27] MEDS ORDERED: ZOSYN 3.375 GM in NS 50 ML IV ONE (13:54)
--- NOTE | 2019-05-27 14:32 | PROVIDER DOCUMENTATION ---
This chart was entered by Jeanette Cohen Scribe, acting as scribe for Hiram Lowery MD. HPI-Respiratory General - General Stated Complaint: hypotension, low o2 sat Time Seen by Provider: 05/27/19 12:35 Source: patient, EMS (first response) Allergies/Adverse Reactions: Patient Allergies Allergy/AdvReac Type Severity Reaction Status Date / Time No Known Allergies Allergy Verified 04/22/19 10:50 Home Medications: Home Medication List Medication Instructions Recorded Confirmed Last Taken Type Clopidogrel Bisulfate [Plavix] 75 mg PO DAILY 12/12/14 04/22/19 11/04/18 History Albuterol 2.5MG/Ipratrop 0.5MG 3 ml INH Q6H PRN PRN #30 neb 10/24/15 04/22/19 04/22/19 06:00 Rx [Duoneb (A & A)] Montelukast Sodium 10 mg PO DAILY 10/24/15 04/22/19 12/02/18 History Aspirin [Aspir-Low] 81 mg PO HS 02/25/16 04/22/19 04/21/19 21:00 History LISINOpril [Prinivil] 5 mg PO DAILY 02/25/16 04/22/19 04/22/19 06:00 History PRAVAstatin [Pravachol] 20 mg PO DAILY 10/05/18 04/22/19 12/02/18 History Furosemide [Lasix] 40 mg PO DAILY tab 12/23/18 04/22/19 Unknown Rx Magnesium Oxide [Mag-Ox] 400 mg PO DAILY tab 12/23/18 04/22/19 Unknown Rx Methimazole [Tapazole] 5 mg PO SUTUTHSA tab 12/23/18 04/22/19 Unknown Rx Methimazole [Tapazole] 10 mg PO MOWEFR tab 12/23/18 04/22/19 Unknown Rx Polyethylene Glycol 3350 [Miralax] 17 gm PO BID powder, packet 12/23/18 04/22/19 Unknown Rx Acetaminophen [Tylenol] 650 mg PO Q4H PRN PRN 01/27/19 04/22/19 04/22/19 06:00 History Ascorbic Acid 1 tab PO DAILY 01/27/19 04/22/19 Unknown History Baclofen 10 mg PO TID 01/27/19 04/22/1904/21/20 06:00 History Diphenhydramine HCl 25 mg PO Q4H PRN PRN 01/27/19 04/22/19 Unknown History Ferrous Sulfate 325 mg PO DAILY 01/27/19 04/22/19 04/21/19 12:00 History Hydrocodone/Acetaminophen [Clyde 1 ea PO Q6H PRN PRN 01/27/19 04/22/19 Unknown History 10-325 Tablet] Lorazepam 0.5 mg PO DAILY 01/27/19 04/22/19 Unknown History Ondansetron HCl [Zofran] 4 mg PO Q6H PRN PRN 01/27/19 04/22/19 Unknown History Amitriptyline [Elavil] 50 mg PO HS 04/22/19 04/22/19 04/21/19 21:00 History Citalopram Hydrobromide 20 mg PO HS 04/22/19 04/22/19 04/21/19 21:00 History [Citalopram HBr] Cyanocobalamin (Vitamin B-12) 1 ml IM ONCE 04/22/19 04/22/19 04/11/19 History [Cyanocobalamin Injection] Metoprolol Tartrate 100 mg PO BID 04/22/19 04/22/19 04/21/19 06:00 History Omeprazole 40 mg PO BID #180 capsule. 04/28/19 Unknown Rx - History of Present Illness-Resp Nature of Presenting Problem: 69 yowf presents to the ed with c/o sob fatigue and generalized weakness, cough with hypotensive episode. she reports she was at the pain clinic with sx onset and her son called 911. per pt she was fine when she woke this am and denies any injury with this today. pt did become so weak that she fell in the parking lot of pain management but son caught her helping her to the ground on her buttocks Quality of Pain: reports: none Severity in ED: reports: moderate Onset/Duration: reports: just prior to arrival Timing: reports: still present, improving Context: reports: recent URI Cough Quality/Degree: reports: mild Episode Frequency: occasional episodes Current Respiratory Medication Therapy: Initiated see nurses note Modifying Factors: improves with: oxygen, rest. worse with: exertion Associated Symptoms: reports: cough, shortness of breath, wheezing. denies: chest pain/soreness, dizziness, fever/chills, headache Similar Symptoms Previously?: No Recently seen or treated by another doctor?: Yes (pain management today) Review of Systems - Adult - REVIEW OF SYSTEMS - ADULT Constitutional: reports: see HPI, fatique. denies: chills, fever Eyes: reports: no symptoms reported Ears, Nose, Mouth & Throat: reports: no symptoms reported Cardiovascular: denies: chest pain, palpitations Respiratory: reports: see HPI, cough, shortness of breath, wheezing Gastrointestinal: denies: abdominal pain, diarrhea, nausea, vomiting Genitourinary: reports: no symptoms reported Musculoskeletal: denies: back pain, neck pain Integumentary: reports: no symptoms reported Neurological: denies: dizziness/vertigo, headache/migraines Psychiatric: reports: no symptoms reported Endocrine: reports: no symptoms reported Hematologic/Lymphatic: reports: no symptoms reported Allergic/Immunologic: reports: no symptoms reported All Other Systems: Reviewed and Negative Past History - Adult - PAST MEDICAL HISTORY-ADULT Review of Records: reports: Old Records Reviewed, Nursing Assessment Review, Med ications Reviewed, Social history reviewed & non-contributory. Major Childhood Illnesses: reports: denies history Cardiovascular: reports: cardiac disease, CAD, CHF, [place] Respiratory: reports: COPD Gastrointestinal: reports: GERD Obstetrical/Gynecological: reports: denies history Genitourinary: reports: denies history Musculoskeletal: reports: denies history Neurological: reports: other (migraine) Psychiatric: reports: denies history Endocrine/Immune: reports: denies history Other Conditions: reports: denies history - PRIOR SURGERIES/PROCEDURES Surgical/Procedure History: reports: other (abdominal perineal resection, robot assisted [address] Serrano. tubal ligation, shoulder) - IMMUNIZATION STATUS Childhood Immunizations: See Nurse Assessment Flu Vaccine: See Nurse Assessment - FAMILY HISTORY Family History: reviewed, not pertinent - SOCIAL HISTORY Smoking: quit greater than 1 year Substance Use: denies Living Situation: family Physical Exam-General - PHYSICAL EXAM-ADULT Initial Vital Signs Reviewed: Yes - CONSTITUTIONAL General Appearance: alert, mild distress (nontoxic in appearance), other (frail in appearance) - EYES Eyes: PERRL/EOMI, pink conjunctivae - HEAD, EARS, NOSE, MOUTH & THROAT HENMT: moist mucous membranes - NECK Neck: full range of motion, supple, normal inspection - RESPIRATORY Respiratory: chest non-tender, respiratory distress (mild), wheezing (bilateral) - CARDIOVASCULAR Cardiovascular: normal peripheral pulses, regular rate, rhythm - CHEST (BREASTS) Chest/Breast: deferred - GASTROINTESTINAL (ABDOMEN) Abdominal Exam: normal bowel sounds, non tender, soft - GENITOURINARY Female Genitalia/Pelvic Exam: deferred Rectal Exam: deferred Hemoccult Exam: deferred - LYMPHATIC Lymphatic: no adenopathy - MUSCULOSKELETAL Back Exam: no CVA tenderness, no vertebral tenderness Extremity: normal range of motion, non-tender, normal inspection - SKIN Integumentary: normal color, normal turgor, warm/dry - NEUROLOGIC Neurologic: grossly normal - PSYCHIATRIC Psych/Mental Status: normal mood/affect, normal thought content, normal thought process, oriented x 3 Progress - PLAN OF CARE/RESULTS Progress/Plan/Lab Results: Vital Signs - 8 hr 05/27/19 12:30 05/27/19 13:05 05/27/19 13:10 Temperature 98.3 F Pulse Rate 74 75 77 Respiratory Rate 14 22 16 Blood Pressure 63/38 77/43 72/44 O2 Sat by Pulse Oximetry 100 100 100 05/27/19 13:12 05/27/19 13:14 05/27/19 14:07 Temperature Pulse Rate 76 75 78 Respiratory Rate 16 16 13 Blood Pressure 66/45 75/43 125/60 O2 Sat by Pulse Oximetry 100 100 95 Laboratory Results - last 24 hr 05/27/19 05/27/19 05/27/19 12:51 12:51 12:51 WBC RBC Hgb Hct MCV MCH MCHC RDW Std Deviation Plt Count MPV Immature Gran % (Auto) Neut % (Auto) Lymph % (Auto) Morris % (Auto) Eos % (Auto) Baso % (Auto) Immature Gran # (Auto) Neut # (Auto) Lymph # (Auto) Morris # (Auto) Eos # (Auto) Baso # (Auto) PT 12.8 INR 0.95 PTT (Actin FS) 28.0 Sodium 134 L Potassium 3.2 L Chloride 96 L Carbon Dioxide 23 L Anion Gap 15 BUN 18 Creatinine 1.4 H Estimated GFR/1.73 m2 37 BUN/Creatinine Ratio 13 Glucose 96 Calculated Osmolality 270 Calcium 8.5 L Total Bilirubin 0.35 AST 12 ALT 8 L Alkaline Phosphatase 76 Creatine Kinase Troponin T High Sens Opp-N-Kzjokwhqypz Pept Total Protein 5.3 L Albumin 2.9 L Globulin 2.4 Albumin/Globulin Ratio 1.2 Plasma Lactate 3.1 H Urine Source Urine Color Urine Turbidity Urine pH Ur Specific Damar Urine Protein Ur Glucose (Stick) Ur Ketones (Stick) Urine Blood Urine Nitrite Urine Bilirubin Urobilinogen Dipstick Urine Leukocytes Urine WBC (Auto) Urine RBC (Auto) U Epithel Cells (Auto) Urine Bacteria (Auto) 05/27/19 05/27/19 05/27/19 12:51 12:51 12:51 WBC 15.64 H RBC 3.60 L Hgb 10.0 L Hct 32.7 L MCV 90.8 MCH 27.8 MCHC 30.6 L RDW Std Deviation 17.5 H Plt Count 473 H MPV 10.6 H Immature Gran % (Auto) 0.3 Neut % (Auto) 84.0 H Lymph % (Auto) 9.3 L Morris % (Auto) 5.9 Eos % (Auto) 0.2 Baso % (Auto) 0.3 Immature Gran # (Auto) 0.05 H Neut # (Auto) 13.15 H Lymph # (Auto) 1.45 Morris # (Auto) 0.92 H Eos # (Auto) 0.03 Baso # (Auto) 0.04 PT INR PTT (Actin FS) Sodium Potassium Chloride Carbon Dioxide Anion Gap BUN Creatinine Estimated GFR/1.73 m2 BUN/Creatinine Ratio Glucose Calculated Osmolality Calcium Total Bilirubin AST ALT Alkaline Phosphatase Creatine Kinase Troponin T High Sens 37 H Jjm-L-Foevkituvwn Pept 1161 H Total Protein Albumin Globulin Albumin/Globulin Ratio Plasma Lactate Urine Source Urine Color Urine Turbidity Urine pH Ur Specific Damar Urine Protein Ur Glucose (Stick) Ur Ketones (Stick) Urine Blood Urine Nitrite Urine Bilirubin Urobilinogen Dipstick Urine Leukocytes Urine WBC (Auto) Urine RBC (Auto) U Epithel Cells (Auto) Urine Bacteria (Auto) 05/27/19 05/27/19 12:57 14:44 WBC RBC Hgb Hct MCV MCH MCHC RDW Std Deviation Plt Count MPV Immature Gran % (Auto) Neut % (Auto) Lymph % (Auto) Morris % (Auto) Eos % (Auto) Baso % (Auto) Immature Gran # (Auto) Neut # (Auto) Lymph # (Auto) Morris # (Auto) Eos # (Auto) Baso # (Auto) PT INR PTT (Actin FS) Sodium Potassium Chloride Carbon Dioxide Anion Gap BUN Creatinine Estimated GFR/1.73 m2 BUN/Creatinine Ratio Glucose Calculated Osmolality Calcium Total Bilirubin AST ALT Alkaline Phosphatase Creatine Kinase 22 L Troponin T High Sens Iqe-G-Kvscacpqltd Pept Total Protein Albumin Globulin Albumin/Globulin Ratio Plasma Lactate Urine Source CLEAN CATCH Urine Color YELLOW Urine Turbidity HAZY Urine pH 5.0 Ur Specific Damar 1.006 Urine Protein NEGATIVE Ur Glucose (Stick) NEGATIVE Ur Ketones (Stick) NEGATIVE Urine Blood NEGATIVE Urine Nitrite NEGATIVE Urine Bilirubin NEGATIVE Urobilinogen Dipstick NORMAL Urine Leukocytes NEGATIVE Urine WBC (Auto) <10 Urine RBC (Auto) <10 U Epithel Cells (Auto) >10 A Urine Bacteria (Auto) NEGATIVE Orders Category Date Time Status NEWS Score >or=5:Order NEWS Bundle S.O. NOW Care 05/27/19 13:34 Active Regular Diet Diet 05/27/19 15:11 Active CHEST-1 VIEW [RAD] Stat Exams 05/27/19 12:[address] HEAD/C-SPINE W/O CONTRAST [CT] Stat Exams 05/27/19 13:28 Completed BLOOD CULTURE [BLDCUL] Stat Lab 05/27/19 13:15 Results BNP [PRO B-NATRIURETIC PEPTIDE] Stat Lab 05/27/19 12:51 Completed CBC WITH ELECTRONIC DIFF [HEME] Stat Lab 05/27/19 12:51 Completed CK PROFILE [SP CHEM] Stat Lab 05/27/19 12:57 Completed COMPREHENSIVE METABOLIC PANEL [CHEM] Stat Lab 05/27/19 12:51 Completed LACTATE, PLASMA [CHEM] Lab 05/27/19 16:20 Received LACTATE, PLASMA [CHEM] Lab 05/27/19 18:17 Uncollected LACTATE, PLASMA [CHEM] Stat Lab 05/27/19 12:51 Completed PROTIME WITH INR [COAG] Stat Lab 05/27/19 12:51 Completed PTT [COAG] Stat Lab 05/27/19 12:51 Completed TROPONIN T HIGH SENSITIVITY Stat Lab 05/27/19 12:51 Completed URINALYSIS W/POSS RFLX CULT [URINALYSIS] Stat Lab 05/27/19 14:44 Completed 0.9% Sodium Chloride Inj [Ns] 1,000 ml Med 05/27/19 12:44 Discontinued .ROUTE As directed 0.9% Sodium Chloride Inj [Ns] 1,000 ml Med 05/27/19 12:39 Discontinued IV 999 mls/hr 0.9% Sodium Chloride Inj [Ns] 1,000 ml Med 05/27/19 13:45 Discontinued IV 999 mls/hr 0.9% Sodium Chloride Inj [Ns] 200 ml Med 05/27/19 13:45 Discontinued IV 999 mls/hr Dextrose 5%-0.45% NaCl Inj [D5 /2 Ns] 250 ml Med 05/27/19 13:00 Active Norepinephrine [Levophed] 8 mg IV As Directed mls/hr Piperacillin/Tazobactam [Zosyn] 3.375 gm Med 05/27/19 13:54 Discontinued 0.9% Sodium Chloride Inj [Ns] 50 ml IV NOW EKG [EKG] Stat Ther 05/27/19 12:40 Draft Result Diagrams: 05/27/19 12:51 05/27/19 12:51 - REASSESSMENT Reassessment #1 Time Reassessed: 12:55 (BP 65/[address] lowery at bedside ) Status: worsening Reassessment #2 Time Reassessed: 13:42 Status: improving (bp is improving and dr lowery is at bedside) - EKG 1 Time of EKG reading by physician:: 12:40 EKG Read and Signed by:: Hiram Lowery EKG Interpretation (*Must complete 3 of following elements*): Normal Rate: 77 Rhythm: sinus rhythm w/ occ pvc [place]: normal QRS: PVC's RI Interval: normal ST Wave: normal - CONSULTS/PCP/HOSPITALIST Notification #1 *Consult/PCP/Hospitalist*: spoke with Asad Smith PMD Time Discussed: 14:22 (spoke with dr lowery and reports pt yesterday had blood in colostomy bag. ) Reason/Comments: phone consult #2 Consult: hospitalist Time Discussed: 14:29 (spoke with brian) Consult Disposition: Will see in ED, Admit Departure - Departure Date of Disposition Decision: 05/27/19 Time of Disposition Decision: 16:40 DIAGNOSIS: Sepsis, CHF (congestive heart failure), GI bleed, Hypotension, Hypokalemia Disposition: ADMITTED INPATIENT 09 Certified Medical Emergency: Emergent Condition: Serious Referrals and Follow-Ups: Irma Smith MD [Primary Care Provider] - - Critical Care Note This patient required my direct & personal management of CC.: Yes Total Time (mins): 64 Critical Care Statement: This patient required my direct personal management to treat or rule out processes, the absence of which, could potentiallly result in sudden, clinically significant life or limb threatening deterioration. Attestation - Physician/ MARIA G Attestation Patient care was provided by Advanced Practice Provider:: No The physician spent face to face time with patient:: Yes Advanced Practice Provider documentation review:: Supervising physician onsite and consulted in the evaluation and care of this patient. The physician did have a face to face encounter with the patient. Sepsis: Tissue Perfusion Assmt - Physical Exam Assessment Date: 05/27/19 Time Assessment Initialized: 14:26 Vital Signs: Last Vital Signs Temp 98.3 F 05/27/19 12:30 Pulse 78 05/27/19 14:07 Resp 13 05/27/19 14:07 BP 125/60 05/27/19 14:07 Pulse Ox 95 05/27/19 14:07 Height 5 ft 4 in Weight 72.575 kg 05/27/19 14:26 see nurses chart Lung Sounds: lungs clear Heart Sounds: Regular Capillary Refill Time: Less Than 2 Seconds Peripheral Pulse Evaluation: radial (R): 4+, radial (L): 4+, posterior tibialis (R): 4+, posterior tibialis (L): 4+ Skin Exam: flushed - Alternative Fluid Bolus Bolus Option: Alternative Fluid Resuscitation Bolus for morbidly obese patients with a BMI >30, Refer to [facility] Body Weight Chart for Reference. Is patient's BMI >30?: Yes Fluid Bolus dosed using the [employer] Body Weight Chart: No - Plan Plan: See Orders This chart was documented by the indicated scribe, (Jeanette Cohen Scribe) and accurately reflects the services I performed and decisions made by me, Hiram Lowery MD, as attested by the provider's signature.
[2019-05-27 14:50] LABS: URINE SOURCE CLEAN CATCH
[2019-05-27 14:54] LABS: BILIRUBIN URINE NEGATIVE (NEGATIVE); BLOOD URINE NEGATIVE (NEGATIVE); COLOR YELLOW; GLUCOSE URINE NEGATIVE (NEGATIVE); KETONE URINE NEGATIVE (NEGATIVE); LEUKOCYTES URINE NEGATIVE (NEGATIVE); NITRITE URINE NEGATIVE (NEGATIVE); PROTEIN URINE NEGATIVE (NEGATIVE); SP GRAVITY URINE 1.006; TURBIDITY URINE HAZY (CLEAR); UROBILINOGEN URINE NORMAL (NORMAL)
[2019-05-27 14:55] LABS: UR EPITHELIAL CELLS >10 /HPF (<10); URINE BACTERIA NEGATIVE /HPF; URINE RBC <10 /HPF (<10); URINE WBC <10 /HPF (<10)
--- NOTE | 2019-05-27 14:59 | EKG Report ---
Test Performed on : 05/27/2019 12:40:34 PM Test Reason : sob Blood Pressure : / mmHG Vent. Rate : 077 BPM Atrial Rate : 077 BPM P-R Int : 114 ms QRS Dur : 084 ms QT Int : 432 ms P-R-T Axes : 062 038 040 degrees QTc Int : 488 ms Sinus rhythm. with occasional premature ventricular complexes. Otherwise normal ECG No previous ECGs available Unconfirmed Result
--- NOTE | 2019-05-27 15:14 | Diag Imaging Result Doc PS360 ---
EXAM: CT HEAD/C-SPINE W/O CONTRAST 05/27/2019 HISTORY: head injury/pain TECHNIQUE: This exam was performed using automated exposure control, adjustment of mA or kV according to patient size, and/or use of iterative reconstruction technique. COMMENT: Head: There are calcifications in the vertebral and internal carotid arteries. There are is extensive abnormal lucency in the white matter both hemispheres with cortical encephalomalacia in the right parietal lobe. There is no evidence of mass effect bleed or abnormal extra-axial fluid collection. The calvarium is intact. The visualized paranasal sinuses are clear. 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 The right facet and disc space at C2-3 are also ankylosed. There is vacuum phenomenon in the anterior atlantoaxial joint. There is posterior osteophyte formation at C5-6. No evidence of acute fracture or subluxation is present and there is no prevertebral soft tissue swelling. There is severe COPD. IMPRESSION: Chronic ischemic changes. No evidence of acute intracranial disease. Degenerative disc and facet disease. Electronically signed by Rolan Hernandez 05/27/2019 3:11 PM
[2019-05-27] MEDS ORDERED: KLOR-CON PO ONE (16:41)
[2019-05-27] MEDS ORDERED: ZOFRAN IV PRN (17:34)
[2019-05-27] MEDS ORDERED: NS 1,000 ML IV SCH (17:34)
--- NOTE | 2019-05-27 17:40 | HISTORY AND PHYSICAL ---
PRIMARY CARE PHYSICIAN: Dr. Irma Smith. CHIEF COMPLAINT: Syncopal episode at the pain clinic today with a decreased blood pressure. HISTORY OF PRESENTING ILLNESS: This is a 69-year-old female who presents to [facility] via EMS after she had a syncopal episode while at the pain clinic today. She did not hit her head as her nephew caught her. When she arrived she had a blood pressure of 63/38. Laboratory data showed a white blood cell count of 15.64. Potassium was 3.2. Creatinine was 1.4. Plasma lactate of 3.1. Urinalysis was negative. Her chest x-ray was negative. CT of the head and cervical spine showed chronic ischemic changes, no evidence of acute intracranial disease, and degenerative disk and facet disease noted. So after receiving 3 L of normal saline she is now on a Levophed drip with a blood pressure of 103/63, and she will be admitted to the intensive care unit for further evaluation and treatment. It is noted that she has ostomy x2 secondary to colon cancer with a colon resection. Her primary care doctor was concerned that she had blood in the stool, but the patient states that she does not have blood in her stool. She has blood at times coming from the incision site of the ostomy, but has not had any today, but that is a frequent issue that is known. Her hemoglobin and hematocrit are stable at 10 and 32, so we will keep an eye on that and monitor closely. PAST MEDICAL HISTORY: Cervical cancer, colon cancer, COPD, hypertension, and hypothyroidism. PAST SURGICAL HISTORY: CABG, bilateral tubal ligation, tonsillectomy, and a colon resection with ostomy x2. FAMILY HISTORY: Reviewed and noncontributory. SOCIAL HISTORY: She currently lives with family. She is a former smoker. Denies any alcohol or illicit drug use. ALLERGIES: She has no known drug allergies. HOME MEDICATIONS: A current list will need to be obtained, reconciled, reviewed, and restarted as appropriate. We will place an order for nursing to update and confirm home medications. LABORATORY DATA: Showed a white blood cell count of 15.64, hemoglobin 10, hematocrit 32.7, platelets 473,000. PT and INR are 12.8 and 0.95. Sodium of 134, potassium 3.2, chloride 96, CO2 of 23, BUN of 18, creatinine 1.4, glucose 96. Cardiac enzyme was negative. ProBNP of 1161. Plasma lactate of 3.1 on arrival, repeat was at 2.2. Urinalysis was negative. Chest x-ray showed a negative exam. CT of the head and cervical spine showed chronic ischemic changes, no evidence of acute intracranial disease, and degenerative disk and facet disease. EKG: Sinus rhythm with occasional PVCs at 77. REVIEW OF SYSTEMS: She denied any fever, chills, or blurred vision. She did have some dizziness, lightheadedness, have a syncopal episode, and some abdominal pain. Denied any chest pain, coughing, or shortness of breath. No nausea or vomiting. She has colostomy x2 that has loose brown stool noted. No burning or hurting with urination. PHYSICAL EXAMINATION: VITAL SIGNS: On arrival she had a temperature of 98.3 degrees, pulse 74, respirations 14, blood pressure 63/38. She received 3 L of fluids and her blood pressure was still only coming up to 75/43. She was placed on a Levophed drip. It came up to 125/60. Currently she is at 103/63. GENERAL: This is a 69-year-old female who is sitting up in the bed and answers questions appropriately. HEEMNT: Normocephalic, atraumatic. Normal ENT inspection. Oropharynx and nares are clear. Eyes: Pupils are equal, round, and reactive to light and accommodation. Extraocular movements are intact. NECK: Normal inspection. Normal range of motion. LUNGS: Clear to auscultation bilaterally with equal lung expansion and chest wall movement. HEART: Regular rate and rhythm. No murmurs, rubs, or gallops. ABDOMEN: Soft. She does have her ostomy x2 bags with soft brown stool noted. EXTREMITIES: Moves all extremities well. NEUROLOGICAL: The cranial nerves II through XII are grossly intact. ASSESSMENT: 1. Syncopal episode. 2. Hypotension. 3. Acute kidney injury. 4. Leukocytosis with no clear source of infection. 5. Hypokalemia. 6. Acute kidney injury. PLAN: She will be admitted to the intensive care unit. Placed on telemetry. She is on a Levophed drip. She did receive a potassium 20 mEq p.o. x1 in the emergency room. She will be on Zosyn 3.375 g IV q. 6 until we have her blood culture results back which are pending x2 at this time. We will do serial lactates. We need to update and confirm her home medications. Place SCDs for DVT prophylaxis. Recheck a CBC and BMP in the a.m. Further orders after seen by attending. Normal saline at 75 mL an hour. Dictated by SILVERIO York for Gómez Lopez MD cc: SILVERIO York MD Lindsay Smith
--- NOTE | 2019-05-27 18:02 | HISTORY AND PHYSICAL ---
ADDENDUM: I have seen and examined Ms. Suarez today. Ms. Suarez refers to be doing a little better now. She initially presented because she was having a swimming head, especially when she was sitting up. She went to Pain Clinic today because she has chronic pain and pain issues. Upon presenting to the emergency room, she was found to have a blood pressure of 63/38. She denies any fever. Denies any cough. PHYSICAL EXAMINATION: She looks remarkably dry on the mucous membrane. She had an old surgical scar on the anterior abdominal wall. She has an ostomy bag and a second bag over the dehiscent wound that also exudes fecal material. LABORATORY: Her laboratory data has been reviewed. She has leukocytosis. She has normocytic anemia. ABGs shows low sodium, low potassium, mild acidosis, and acute kidney injury. Plasma lactate was 3.1 initially. Blood cultures have been done. IMAGING STUDIES: Including a chest x-ray shows it was negative. ASSESSMENT: 1. Hypotension, presumably from hypovolemic shock. However, an underlying infectious etiology cannot be entirely ruled out. Blood cultures have been done. We are going to continue with fluid resuscitation. The patient is currently on Levophed drip so she will be admitted to the critical care unit for close monitoring. 2. Acute kidney injury secondary to intravascular depletion. 3. Clinical volume depletion. We will continue with IV fluids. 4. History of syncope, presumably from orthostatic hypotension. 5. Electrolyte abnormality including hyponatremia, hypokalemia, a mild non gap metabolic acidosis, all will be replaced and rechecked. 6. Lactic acidosis presumably from hypoperfusion and dehydration. 7. History of rectal cancer status post colostomy. 8. History of coronary artery disease status post CABG. PLAN: In general, I think Ms. Suarez remains hypotensive. It is presumed to be due to intravascular depletion, however, as I said, sepsis cannot be entirely ruled out. The patient will be covered on IV antibiotics, fluid resuscitated, and continuous on the Levophed. She will be admitted to the critical care unit. We will re-evaluate her in the morning, and make further changes to the management accordingly. Once cultures come back, we will make a decision on antimicrobial coverage. Please refer to the details of the history and physical that has been dictated by the SENIOR VALIDATION ENGINEER in the chart. I have discussed the plan with her. TIME: Critical time spent is 45 minutes. cc: Gómez Lopez MD [facility]
[2019-05-27] MEDS: ZOSYN 3.375 GM in NS 50 ML IV SCH ×2 (19:35→23:35)
[2019-05-27] MEDS ORDERED: NS 50 ML ONE (19:42)
[2019-05-28] MEDS: LEVOPHED 8 MG in D5 1/2 NS 250 ML IV SCH (01:09)
[2019-05-28] MEDS: NS 1,000 ML IV SCH ×3 (01:10→19:40)
[2019-05-28] MEDS: ZOSYN 3.375 GM in NS 50 ML IV SCH ×4 (05:51→23:56)
[2019-05-28 05:57] LABS: BASO# 0.02 X1000 (0.0-0.2); BASO% 0.2 % (0.0-0.8); EOS# 0.03 X1000 (0.0-0.7); EOS% 0.3 % (0.0-10.0); HEMATOCRIT 36.8 % (37.0-47.0); HEMOGLOBIN 11.2 g/dL (12.0-16.0); IMM GRAN# 0.02 X1000 (0.0-0.04); IMM GRAN% 0.2 % (0.0-0.5); LYMPH# 3.18 X1000 (1.2-3.4); LYMPH% 31.5 % (20.5-51.1); MCH 27.7 PG (27-31); MCHC 30.4 g/dL (33-37); MCV 90.9 FL (81-99); MONO% 8.9 % (1.7-9.3); MPV 11.1 FL (7.4-10.4); NEUT# 5.94 X1000 (1.4-6.5); NEUT% 58.9 % (42.2-75.2); PLT 423 X1000 (130-400); RBC 4.05 XMIL (4.2-5.4); RDW 17.2 % (11.5-14.5); WBC 10.09 X1000 (4.8-10.8)
[2019-05-28 06:23] LABS: AGAP 16; BUN 17 mg/dL (8-22); CALCIUM 8.6 mg/dL (8.8-10.2); CHLORIDE 103 mmol/L (98-107); COSMO 286; CREATININE 0.9 mg/dL (0.5-0.9); ESTIMATED GFR > 60; GLUCOSE 119 mg/dL (70-104); POTASSIUM 2.9 mmol/L (3.5-5.1); SODIUM 142 mmol/L (136-145); TCO2 23 mmol/L (25-35)
[2019-05-28] MEDS ORDERED: KLOR-CON PO ONE (09:56)
[2019-05-28] MEDS: NORCO-10 PO PRN ×2 (15:37→21:27)
--- NOTE | 2019-05-28 15:56 | PROGRESS NOTE ---
DATE: 05/28/2019 SUBJECTIVE: She has no major complaints. Blood pressure is stabilized. She is off pressors. Blood pressure last one 90/39 but I was in there, her MAP was 65, her systolic was in the 1 teens, heart rate of 102, respiratory rate of 19, temperature 98.1 degrees. Cardiovascular: Regular rate and rhythm. Pulmonary: Bilateral breath sounds clear to auscultation. GI: Soft, nontender, nondistended. Bowel sounds are positive. LABORATORY DATA: White count 10, hemoglobin and hematocrit 11, 36, platelets 423,000, potassium 2.9, creatinine down to 0.9. PROBLEM LIST: 1. Hypotension with unclear source unless it was just pure hypovolemia because she has responded very well to fluids. She is off pressors. There was no bleeding apparently so we will continue to follow. She does have leukocytosis but no clear source of infection. She is empirically on antibiotics. I think if things are negative through tomorrow I may stop her antibiotics. 2. Syncope likely related to that. We will continue to follow closely. Resume her medications. cc: Korey Da Silva MD
[2019-05-28] MEDS: LIORESAL PO SCH (16:36)
[2019-05-28] MEDS: PRILOSEC PO SCH (21:28)
[2019-05-28] MEDS: MIRALAX PO SCH (21:28)
[2019-05-28] MEDS: ELAVIL PO SCH (21:28)
[2019-05-28] MEDS: CELEXA PO SCH (21:28)
[2019-05-28] MEDS: ASPIRIN EC PO SCH (21:28)
[2019-05-28] MEDS ORDERED: REGLAN IV ONE (23:30)
[2019-05-28] MEDS ORDERED: LOPRESSOR PO ONE (23:30)
[2019-05-28] MEDS ORDERED: LOPRESSOR IV ONE (23:31)
[2019-05-28] MEDS ORDERED: LANOXIN IV ONE (23:32)
[2019-05-29] MEDS: NORCO-10 PO PRN ×4 (03:35→22:13)
[2019-05-29] MEDS: ZOSYN 3.375 GM in NS 50 ML IV SCH ×5 (04:58→19:30)
[2019-05-29] MEDS: LOVENOX SUBQ SCH (05:04)
[2019-05-29] MEDS: NS 1,000 ML IV SCH (05:50)
[2019-05-29 06:10] LABS: BASO# 0.02 X1000 (0.0-0.2); BASO% 0.3 % (0.0-0.8); EOS# 0.03 X1000 (0.0-0.7); EOS% 0.5 % (0.0-10.0); HEMATOCRIT 33.8 % (37.0-47.0); HEMOGLOBIN 10.1 g/dL (12.0-16.0); IMM GRAN# 0.02 X1000 (0.0-0.04); IMM GRAN% 0.3 % (0.0-0.5); LYMPH% 38.1 % (20.5-51.1); MCH 27.5 PG (27-31); MCHC 29.9 g/dL (33-37); MCV 92.1 FL (81-99); MONO# 0.66 X1000 (0.11-0.59); NEUT# 3.34 X1000 (1.4-6.5); NEUT% 50.8 % (42.2-75.2); PLT 331 X1000 (130-400); RBC 3.67 XMIL (4.2-5.4); RDW 17.5 % (11.5-14.5); WBC 6.57 X1000 (4.8-10.8)
[2019-05-29 06:30] LABS: AGAP 12; BUN 6 mg/dL (8-22); CALCIUM 8.3 mg/dL (8.8-10.2); CHLORIDE 109 mmol/L (98-107); COSMO 277; CREATININE 0.5 mg/dL (0.5-0.9); ESTIMATED GFR > 60; GLUCOSE 72 mg/dL (70-104); POTASSIUM 3.5 mmol/L (3.5-5.1); SODIUM 141 mmol/L (136-145); TCO2 20 mmol/L (25-35)
[2019-05-29] MEDS: PRAVACHOL PO SCH (08:00)
[2019-05-29] MEDS: MIRALAX PO SCH ×2 (08:00→20:06)
[2019-05-29] MEDS: PRILOSEC PO SCH ×3 (08:01→20:08)
[2019-05-29] MEDS: ATIVAN PO SCH (08:01)
[2019-05-29] MEDS: LIORESAL PO SCH ×3 (08:01→16:08)
[2019-05-29] MEDS: FERROUS SULFATE PO SCH (08:01)
[2019-05-29] MEDS: LOPRESSOR PO SCH ×2 (08:01→20:04)
[2019-05-29] MEDS: NEURONTIN PO SCH (08:01)
[2019-05-29] MEDS ORDERED: NS 1,000 ML IV SCH (12:56)
--- NOTE | 2019-05-29 13:15 | PROGRESS NOTE ---
DATE: 05/29/2019 SUBJECTIVE: The patient has no major complaints except she looks a little short winded to me today. OBJECTIVE: Vital signs: Blood pressure is 105/85, heart rate 81, respiratory rate 24, temperature was 97.4 degrees. Cardiovascular: Regular rate and rhythm. Pulmonary: Bilateral breath sounds clear to auscultation. GI: Soft, nontender, nondistended. Bowel sounds are positive. LABORATORY DATA: White count 6.5, hemoglobin and hematocrit 10 and 33, platelets 331,000. BUN and creatinine 6 and 0.5. PROBLEM LIST: 1. Hypotensive shock, hypovolemia. She is off pressors now and stable. I think I am going to decrease her fluids just because I am concerned about volume overload issues with her and we will continue to follow. There is no evidence of infection at this point so I may hold antibiotics. 2. Syncope related to hypotension. Aware of diagnosis. 3. Coronary artery disease, coronary artery bypass grafting. She has had her last echo in November showed an EF of 55% was pretty normal, so I do not think she actually has any heart failure, but we will look at her x-ray today. 4. Chronic obstructive pulmonary disease. She is on chronic O2 so we will continue to monitor closely. I am probably going to leave her on the antibiotics at this point until we can get the chest x-ray and follow, but so far all her cultures are negative. We will work on trying to get her mobile. We will see how she does. I think she is stable to go to the floor. cc: Korey Da Silva MD
--- NOTE | 2019-05-29 14:25 | Diag Imaging Result Doc PS360 ---
EXAM: CHEST-2 VIEWS 05/29/2019 HISTORY: hypoxia TECHNIQUE: AP and lateral chest COMMENT: There is some pleural thickening or minimal effusion present in the right costophrenic angle which was less evident on 05/27/2019. The lungs are actually slightly better expanded. Otherwise are has been no appreciable change. IMPRESSION: Questionable left pleural effusion. Electronically signed by Rolan Hernandez 05/29/2019 2:23 PM
[2019-05-29] MEDS: TYLENOL PO PRN (16:44)
[2019-05-29] MEDS: ASPIRIN EC PO SCH (20:05)
[2019-05-29] MEDS: CELEXA PO SCH (20:05)
[2019-05-29] MEDS: ELAVIL PO SCH (20:06)
[2019-05-30] MEDS: ZOSYN 3.375 GM in NS 50 ML IV SCH ×5 (00:14→23:28)
[2019-05-30] MEDS: NORCO-10 PO PRN ×3 (04:13→22:22)
[2019-05-30] MEDS: LOVENOX SUBQ SCH (05:31)
[2019-05-30 05:59] LABS: BASO# 0.04 X1000 (0.0-0.2); BASO% 0.5 % (0.0-0.8); EOS# 0.02 X1000 (0.0-0.7); EOS% 0.3 % (0.0-10.0); HEMOGLOBIN 9.3 g/dL (12.0-16.0); IMM GRAN# 0.02 X1000 (0.0-0.04); IMM GRAN% 0.3 % (0.0-0.5); LYMPH# 1.96 X1000 (1.2-3.4); MCH 27.7 PG (27-31); MCV 92.3 FL (81-99); MONO% 8.9 % (1.7-9.3); MPV 10.8 FL (7.4-10.4); NEUT# 5.09 X1000 (1.4-6.5); PLT 301 X1000 (130-400); RBC 3.36 XMIL (4.2-5.4); WBC 7.83 X1000 (4.8-10.8)
[2019-05-30 06:11] LABS: AGAP 10; BUN 4 mg/dL (8-22); CALCIUM 8.3 mg/dL (8.8-10.2); CHLORIDE 108 mmol/L (98-107); COSMO 270; CREATININE 0.4 mg/dL (0.5-0.9); ESTIMATED GFR > 60; GLUCOSE 81 mg/dL (70-104); POTASSIUM 3.6 mmol/L (3.5-5.1); SODIUM 137 mmol/L (136-145); TCO2 19 mmol/L (25-35)
--- NOTE | 2019-05-30 07:51 | EKG Report ---
Test Performed on : 05/28/2019 11:21:25 PM Test Reason : INCREASED HR Blood Pressure : / mmHG Vent. Rate : 126 BPM Atrial Rate : 126 BPM P-R Int : 118 ms QRS Dur : 080 ms QT Int : 320 ms P-R-T Axes : 069 052 235 degrees QTc Int : 463 ms Sinus tachycardia. Possible Left atrial enlargement ST & T wave abnormality, consider inferolateral ischemia Abnormal ECG No previous ECGs available Confirmed by Eron MIRZA, Flex Haney ([id number]) on 05/30/2019 4:48:00 PM
[2019-05-30] MEDS: MIRALAX PO SCH ×2 (08:07→21:08)
[2019-05-30] MEDS: PRAVACHOL PO SCH (08:08)
[2019-05-30] MEDS: LOPRESSOR PO SCH ×2 (08:08→21:09)
[2019-05-30] MEDS: NEURONTIN PO SCH (08:10)
[2019-05-30] MEDS: ATIVAN PO SCH (08:11)
[2019-05-30] MEDS: LIORESAL PO SCH ×3 (08:11→18:55)
[2019-05-30] MEDS: PRILOSEC PO SCH ×2 (08:11→21:09)
[2019-05-30] MEDS: FERROUS SULFATE PO SCH (08:11)
--- NOTE | 2019-05-30 13:59 | PROGRESS NOTE ---
DATE: 05/30/2019 SUBJECTIVE: Patient has no major complaints. OBJECTIVE: Vital Signs: Blood pressure 123/64, heart rate of 95, respiratory rate of 25, temperature 98.8 degrees. Cardiovascular: Regular rate and rhythm. Pulmonary: Bilateral breath sounds. Clear to auscultation. GI: Soft, nontender, nondistended. Bowel sounds are positive. LABS: White count 7, hemoglobin and hematocrit 9 and 31, platelets 301. Basic was normal. Satting 98% on room air. PROBLEM LIST: 1. Hypotensive shock. That seems to have stabilized. She is off treatment. 2. Syncope. That is also stabilized. No further issues. Work on ambulation. 3. Chronic obstructive pulmonary disease. Chest x-ray shows a little bit of pleural effusion, but no celeste infiltrate. DISPOSITION: Apparently, she was walking and her heart rate went up. We do need to work on ambulating her if possible. Hopefully home soon once we can get her up and around, and she does not desaturate or tachycardia disappears. cc: Korey Da Silva MD
[2019-05-30] MEDS: ELAVIL PO SCH (21:09)
[2019-05-30] MEDS: ASPIRIN EC PO SCH (21:09)
[2019-05-30] MEDS: CELEXA PO SCH (21:09)
[2019-05-31] MEDS: NORCO-10 PO PRN ×3 (05:20→20:23)
[2019-05-31] MEDS: ZOSYN 3.375 GM in NS 50 ML IV SCH (05:21)
[2019-05-31] MEDS: LOVENOX SUBQ SCH (05:23)
[2019-05-31 06:24] LABS: BASO# 0.01 X1000 (0.0-0.2); BASO% 0.2 % (0.0-0.8); EOS# 0.02 X1000 (0.0-0.7); EOS% 0.3 % (0.0-10.0); HEMATOCRIT 29.8 % (37.0-47.0); HEMOGLOBIN 8.9 g/dL (12.0-16.0); LYMPH# 1.69 X1000 (1.2-3.4); LYMPH% 27.7 % (20.5-51.1); MCH 27.3 PG (27-31); MCHC 29.9 g/dL (33-37); MCV 91.4 FL (81-99); MONO# 0.55 X1000 (0.11-0.59); MPV 10.9 FL (7.4-10.4); NEUT# 3.83 X1000 (1.4-6.5); NEUT% 62.8 % (42.2-75.2); PLT 287 X1000 (130-400); RBC 3.26 XMIL (4.2-5.4)
[2019-05-31 06:38] LABS: AGAP 9; BUN 4 mg/dL (8-22); CALCIUM 8.2 mg/dL (8.8-10.2); CHLORIDE 111 mmol/L (98-107); COSMO 280; CREATININE 0.4 mg/dL (0.5-0.9); ESTIMATED GFR > 60; GLUCOSE 91 mg/dL (70-104); POTASSIUM 3.4 mmol/L (3.5-5.1); SODIUM 142 mmol/L (136-145); TCO2 22 mmol/L (25-35)
[2019-05-31] MEDS: PRILOSEC PO SCH ×2 (08:23→20:22)
[2019-05-31] MEDS: LIORESAL PO SCH ×3 (08:23→17:27)
[2019-05-31] MEDS: PRAVACHOL PO SCH (08:23)
[2019-05-31] MEDS: LOPRESSOR PO SCH ×2 (08:24→20:22)
[2019-05-31] MEDS: MIRALAX PO SCH ×2 (08:24→20:21)
[2019-05-31] MEDS: FERROUS SULFATE PO SCH (08:24)
[2019-05-31] MEDS: ATIVAN PO SCH (08:24)
[2019-05-31] MEDS: NEURONTIN PO SCH (08:24)
[2019-05-31] MEDS: CELEXA PO SCH (20:22)
[2019-05-31] MEDS: ASPIRIN EC PO SCH (20:22)
[2019-05-31] MEDS: ELAVIL PO SCH (20:22)
--- NOTE | 2019-05-31 22:00 | PROGRESS NOTE ---
DATE: 05/31/2019 SUBJECTIVE: Patient has no new complaints. She states overall she is feeling okay. Currently sitting in the bed with oxygen by her bedside. PHYSICAL EXAM: Vital Signs: Temperature 97 degrees, pulse 79, respiratory rate 18, BP 114/47, saturating 100% on 2 L. General: Currently, as noted, she is not on oxygen and is sitting to the side of bed, but she notes she does not need it currently. HEENT: Normocephalic. Neck: Supple. Cardiovascular: Regular rate. Chest: Clear, nonlabored. Abdomen: Soft, nondistended. ASSESSMENT: 1. Hypertensive shock, resolved. Blood pressures are stable 114/47. 2. Syncope, appears to have resolved. 3. Chronic obstructive pulmonary disease. 4. Acute hypoxic respiratory failure, resolved. 5. Hyperkalemia. 6. Anemia of chronic disease. PLAN: Currently is on day 4 of Zosyn. We will continue physical therapy. Continue to follow her pleural effusion. Recheck a chest x-ray and will follow. cc: Jose Marcum MD
[2019-05-31] MEDS: TYLENOL PO PRN (22:26)
[2019-06-01] MEDS: NORCO-10 PO PRN ×4 (06:14→23:43)
[2019-06-01] MEDS: LOVENOX SUBQ SCH (06:15)
[2019-06-01] MEDS ORDERED: BENZOIN TINCTURE TOP ONE (08:01)
--- NOTE | 2019-06-01 08:03 | PROGRESS NOTE ---
DATE: 06/01/2019 SUBJECTIVE: The patient notes that overall she is feeling better. She states she has been able to get out of bed a little bit, still weak and fatigued, but overall improving. PHYSICAL EXAMINATION: Vital Signs: T-max 100.3 degrees, T-current 98.5. Pulse 82, respiratory 20, blood pressure 128/47, saturating 100% on room air. General: The patient is awake, pleasant. She is in no current respiratory distress. She is lying in the bed. She is alert and oriented. HEENT: Normocephalic. Neck: Supple. Cardiovascular: Regular rate. Chest: Good air movement. In fact, slightly improved from yesterday. No wheezing. No crackles. Abdomen: Soft. Extremities: Moves all extremities. ASSESSMENT: 1. Hypotensive shock, appears resolved. Blood pressures are stable. 2. Chronic hypoxia. The patient is on oxygen at night at home. 3. Pleural effusion, improving. 4. Chronic obstructive pulmonary disease. 5. Adult failure to thrive with generalized weakness. 6. Hypokalemia. PLAN: We will continue the patient in the hospital today. We have stopped her Zyvox, changed to Omnicef. We will continue physical therapy. We will get social insurance adviser involved. Hopefully, she can discharge tomorrow if symptoms continue to improve. cc: Jose Marcum MD
[2019-06-01] MEDS: NEURONTIN PO SCH (08:35)
[2019-06-01] MEDS: FERROUS SULFATE PO SCH (08:35)
[2019-06-01] MEDS: PRILOSEC PO SCH ×2 (08:35→22:42)
[2019-06-01] MEDS: PRAVACHOL PO SCH (08:35)
[2019-06-01] MEDS: ATIVAN PO SCH (08:35)
[2019-06-01] MEDS: OMNICEF PO SCH ×2 (08:35→22:42)
[2019-06-01] MEDS: LIORESAL PO SCH ×3 (08:35→16:32)
[2019-06-01] MEDS: LOPRESSOR PO SCH ×2 (08:35→22:42)
[2019-06-01] MEDS: MIRALAX PO SCH ×2 (08:36→22:43)
[2019-06-01] MEDS: DUONEB (A & A) INH PRN ×2 (09:39→14:49)
[2019-06-01] MEDS: ASPIRIN EC PO SCH (22:42)
[2019-06-01] MEDS: CELEXA PO SCH (22:42)
[2019-06-01] MEDS: ELAVIL PO SCH (22:42)
[2019-06-02] MEDS: LOVENOX SUBQ SCH (05:48)
[2019-06-02] MEDS: NORCO-10 PO PRN ×2 (06:31→14:45)
[2019-06-02 09:17] LABS: HEMATOCRIT 30.8 % (37.0-47.0); HEMOGLOBIN 9.2 g/dL (12.0-16.0); MCH 27.5 PG (27-31); MCHC 29.9 g/dL (33-37); MCV 91.9 FL (81-99); MPV 11.1 FL (7.4-10.4); RBC 3.35 XMIL (4.2-5.4); RDW 17.1 % (11.5-14.5); WBC 6.9 X1000 (4.8-10.8)
[2019-06-02] MEDS: PRILOSEC PO SCH (10:10)
[2019-06-02] MEDS: LIORESAL PO SCH ×2 (10:10→14:45)
[2019-06-02] MEDS: PRAVACHOL PO SCH (10:10)
[2019-06-02] MEDS: FERROUS SULFATE PO SCH (10:10)
[2019-06-02] MEDS: NEURONTIN PO SCH (10:10)
[2019-06-02] MEDS: OMNICEF PO SCH (10:11)
[2019-06-02] MEDS: LOPRESSOR PO SCH (10:11)
[2019-06-02] MEDS: ATIVAN PO SCH (10:11)
[2019-06-02] MEDS: MIRALAX PO SCH (10:11)
[2019-06-02 11:04] LABS: AGAP 10; ALB/GLOB RATIO 0.6; ALBUMIN 2.2 g/dL (3.5-5.0); ALKALINE PHOSPHATASE 82 U/L (32-104); BUN 4 mg/dL (8-22); CALCIUM 8.6 mg/dL (8.8-10.2); CHLORIDE 107 mmol/L (98-107); COSMO 280; CREATININE 0.5 mg/dL (0.5-0.9); ESTIMATED GFR > 60; GLUCOSE 126 mg/dL (70-104); GOT 17 U/L (10-30); GPT 18 U/L (10-36); POTASSIUM 3.6 mmol/L (3.5-5.1); SODIUM 141 mmol/L (136-145); TCO2 24 mmol/L (25-35); TOTAL BILIRUBIN 0.21 mg/dL (0.20-1.00); TOTAL PROTEIN 5.6 g/dL (6.3-8.3)
[2019-06-02 11:50] VITALS: BP 117/66
--- NOTE | 2019-06-02 15:56 | DISCHARGE SUMMARY ---
ADMISSION DATE: 05/27/2019 DISCHARGE DATE: SUBJECTIVE: Patient is feeling better today. Blood pressures are stable, although she had some fever yesterday, that was the only time. She has not had any fever in over 24 hours. She is looking better. She is off O2, although she is on it intermittently at home, and 96% on room air. Lungs are clear. PROBLEM LIST: 1. Hypotensive shock probably due to dehydration. 2. Syncope. 3. Chronic obstructive pulmonary disease. 4. Hypoxic respiratory failure, acute on chronic. CONSULTATIONS: None I believe. HOSPITAL COURSE: Briefly, she came in with hypotension, which was persistent. White count of 15 and creatinine of 1.4. She had to be placed on vasopressors initially with Levophed or norepinephrine. Within 24 hours, we were off that. It looked really like pure hypovolemia. She is on torsemide 20 mg twice a day, which is a fairly large dose. She had an echocardiogram in November, which showed an EF of 55%. No RV systolic dysfunction. No diastolic dysfunction, but was not a very good quality echo apparently. We do not have an echo since 2016 when EF was normal at that time of 55 to 60%. In any case, she did not come in with heart failure. She was given fluids. She improved. She was fairly debilitated, which I think was probably what kept her in the hospital. She was eventually able to be discharged. Head CT and spinal CT was negative. She was still having some tachycardia with ambulation, but that also improved with her physical therapy. They recommended outpatient physical therapy home health. DISCHARGE MEDICATIONS: 1. Aspirin 81 daily. 2. Baclofen 10 t.i.d. 3. Celexa 20 daily. 4. Vitamin B12. 5. Benadryl. 6. Elavil 50 at bedtime. 7. Ferrous sulfate 325 daily. 8. Gabapentin 300 daily. 9. Ativan 0.5 daily. 10. Metoprolol 100 b.i.d. 11. [place]. 12. Pravachol 20 daily. 13. Lisinopril 5 daily. 14. Tylenol p.r.n. 15. Zofran 4 q.6. 16. DuoNeb q.6. 17. MiraLAX 17 daily. 18. Omeprazole 40 b.i.d. 19. Omnicef 300 p.o. b.i.d. 20. Torsemide I think we may need to consider just taking that off, but at least decreasing it to the 10 daily. DISCHARGE INSTRUCTIONS: She will need follow-up labs in 1 week. She did have a little bit of a left pleural effusion. I just wanted to make sure she has a little bit of diuretic, but I am worried about her getting dehydrated on that again potentially. Disposition pending. She is going to go home. TIME SPENT: This is a 32 minute discharge. Refer to Irma Smith MD. Follow up in 1 week for labs and general follow up. cc: Korey Da Silva MD
== END 2019-06-02 16:49 | disposition home health service (06) | DRG 640 ==
LOC: SUPCPDRO → ED 12:21 → SUATTDRO 16:57 → ICU 16:57 → 3N 05-30 14:40
PROVIDERS: ATTEND Internal Medicine